=== PATIENT | female | born 1960 | race Caucasian/White ===

== ENCOUNTER 2018-09-07 19:55 | Inpatient (IN) | payer SELFPAY ==
[2018-09-07 20:16] LABS: #Basophils 0.1 thou/uL (0.0-0.2); #Eosinphils 0.2 thou/uL (0.0-0.7); #Lymphocytes 3.1 thou/uL (1.20-3.40); #Monocytes 0.9 thou/uL (0.11-0.59); #Neutrophils 8.1 thou/uL (1.40-6.50); %Basophils 0.8 % (0.0-1.0); %Eosinophils 1.3 % (0.0-10.0); %Monocytes 6.9 % (0.0-10.0); %Neutrophils 66.1 % (42.0-75.0); Hemoglobin 14.8 g/dL (12.0-16.0); Mean Corpuscular HGB CONC 33.1 g/dL (32.0-36.0); Mean Corpuscular Hemoglobin 30.1 pg (27.0-31.0); Mean Corpuscular Volume 91.1 fL (78.0-98.0); Mean Platelet Volume 8.1 fL (7.4-10.4); Platelet Count 300 thou/uL (130-400); RBC Distribution Width 11.5 % (11.5-14.5); Red Blood Cell (RBC) Count 4.91 mill/uL (4.20-5.40); White Blood Cell (WBC) Count 12.3 thou/uL (4.8-10.8)
[2018-09-07] MEDS ORDERED: Nitroglycerin 0.4 MG TAB (25 Tab Bottle) PO PRN (20:22)
[2018-09-07 20:23] LABS: Prothrombin Time 13.5 SEC (12.0-14.7)
[2018-09-07 20:24] LABS: PTT 55.1 SEC (22.9-36.1)
[2018-09-07] MEDS ORDERED: Communication Order-Pharmacy FS SCH (20:30)
[2018-09-07] MEDS ORDERED: Nitroglycerin 50 MG/250 ML BOT 250 ML IVPB SCH (20:30)
[2018-09-07] MEDS ORDERED: Heparin 25,000 units/D5W 500 ML IVPB SCH (20:30)
[2018-09-07] MEDS ORDERED: predniSONE 20 MG TAB ONE (20:37)
[2018-09-07] MEDS ORDERED: Famotidine 20 MG TAB ONE (20:37)
[2018-09-07] MEDS ORDERED: diphenhydrAMINE 50 MG CAP ONE (20:37)
[2018-09-07 20:44] LABS: ALT (SGPT) 8 U/L (8-55); AST (SGOT) 17 U/L (5-34); Albumin 3.1 g/dL (3.5-5.0); Alkaline Phosphatase 128 U/L (40-150); Anion Gap 16 mmol/L (10-20); BUN (Urea Nitrogen) 15 mg/dL (9.8-20.1); Bilirubin, Total 0.3 mg/dL (0.2-1.2); CK (CPK) 129 U/L (29-168); Calc. Creatinine Clearance 0 mL/min (70-130); Calcium 9.8 mg/dL (7.8-10.44); Carbon Dioxide 21 mmol/L (22-29); Chloride 100 mmol/L (98-107); Estimated GFR-MDRD 48; Globulin 3.4 g/dL (2.4-3.5); Glucose 467 mg/dL (70-105); Lipase 123 U/L (8-78); Potassium 4.5 mmol/L (3.5-5.1); Protein, Total 6.5 g/dL (6.0-8.3); Sodium 132 mmol/L (136-145)
[2018-09-07] MEDS ORDERED: Fentanyl 100 MCG/2 ML VIAL ONE (21:07)
[2018-09-07] MEDS ORDERED: Amiodarone 150 MG, Admixture Fee 1 EACH in Dextrose 5% in Water 100 ML IVPB SCH (21:45)
[2018-09-07 21:48] LABS: Hemoglobin 14.2 g/dL (12.0-16.0); Platelet Count 282 thou/uL (130-400)
[2018-09-07] MEDS ORDERED: Ondansetron ODT 4 MG TAB SL PRN (22:09)
[2018-09-07] MEDS ORDERED: Ondansetron PF 4 MG/2 ML Vial IVP PRN (22:09)
[2018-09-07 22:36] LABS: Troponin I 9.857 ng/mL (< 0.028)
[2018-09-07] MEDS ORDERED: Dextrose 50% Abboject 50 ML SYRINGE SLOW IVP PRN (22:46)
[2018-09-07] MEDS ORDERED: Dextrose 5% in Water 1,000 ML IV PRN (22:46)
[2018-09-07] MEDS: Sodium Chloride 0.9% 1,000 ML IV SCH (23:40)
[2018-09-07] MEDS: Heparin 10,000 UNITS/ 10 ML VIAL SLOW IVP SCH (23:42)
[2018-09-08] MEDS ORDERED: Amiodarone 150 MG, Admixture Fee 1 EACH in Dextrose 5% in Water 100 ML IVPB SCH (00:30)
[2018-09-08] MEDS: Amiodarone 450 MG in Dextrose 5% in Water 250 ML IVPB SCH (00:45)
[2018-09-08] MEDS: HumaLOG 300 UNITS/3 ML VIAL SC PRN ×2 (02:19→06:40)
--- NOTE | 2018-09-08 02:38 | CON ---
DATE OF CONSULTATION: 09/07/2018 HISTORY OF PRESENT ILLNESS: Azalea George is a 58-year-old white female, who six years ago, had myocardial infarction and had one stent placed in an artery at [facility]. She states she has done well since then until tonight at approximately 6:30 p.m., she began to have substernal chest pressure associated with nausea and diaphoresis. She went to the hospital in [place] and had changes consistent with an old anteroseptal infarct, but did have [address]-segment elevation in V3 and lead III. I discussed with the physician about the delayed transportation time and TNKase was given. Also at that time, it was unknown to me that she had an iodine allergy and it was good that she got the TNKase because she has what sounds like significant iodine allergy. At the present time, she is totally pain free. She is on intravenous heparin and intravenous nitroglycerin. She admits to not taking any medications except baby aspirin per day and has run out of insurance, so is not taking any medications for her diabetes. However, she continues to smoke. PAST MEDICAL HISTORY: Diabetes. She denies any history of hypercholesterolemia or hypertension. MEDICATIONS: Aspirin 81 daily. ALLERGIES: IODINE CAUSED LARYNGOSPASM AND GENERALIZED BODY SWELLING. SHE IS FAIRLY CERTAIN THAT SHE WAS PREMEDICATED FOR IODINE ALLERGY PRIOR TO HER CARDIAC CATHETERIZATION. PAST SURGICAL HISTORY: Removal of cyst from her groin. SOCIAL HISTORY: She continues to smoke a little under one pack per day. She does not drink. FAMILY HISTORY: Mother had myocardial infarction. REVIEW OF SYSTEMS: A 12-point review of systems is unremarkable. PHYSICAL EXAMINATION: VITAL SIGNS: Blood pressure 130/70, pulse of 80. HEENT: PERRL. NECK: Supple. CHEST: Clear. CARDIAC: S1 and S2 are normal without any S3, S4, or murmurs. Carotid upstrokes are normal without bruits. ABDOMEN: Normal bowel sounds. The abdomen is obese. EXTREMITIES: Reveal no clubbing, cyanosis, or edema. NEUROLOGIC: Grossly intact. SKIN: Warm and dry. LABORATORY DATA: EKG in [place] revealed atrial fibrillation with Q-waves, V1 through V3 with a slight 1-mm of ST-elevation in V3 and lead III. EKG here looks more like atrial flutter with the Q-waves, V1 through V3. The ST segments appear to have returned to baseline and she is pain free. Hemoglobin 14.8, hematocrit 44.7, white count 12,300, platelets 300. Sodium 133, potassium 4.7, chloride 99, carbon dioxide 22, BUN 13, creatinine 1.08. Troponin I of 3.830. BNP 460.5. IMPRESSION: 1. Anteroseptal ST elevation myocardial Infarction on top of what appears to be an old anteroseptal infarction with Q-waves in those leads. She received TNKase and at the present time is pain free. 2. Atrial fibrillation and atrial flutter. 3. Significant iodine allergy. 4. Diabetes. 5. Noncompliance with medications. 6. Smoker and positive family history. RECOMMENDATIONS: Situation discussed with the patient. With her severe iodine allergy and the fact that her chest discomfort has resolved, I feel best to premedicate her and take her to the laborer tin can tomorrow. Risks of catheterization were discussed including , myocardial infarction, dye reaction, vascular injury, CVA, transfusion, limb loss, renal loss, etc. Also risks of intervention with PTCA and stent placement were discussed including , myocardial infarction, emergent CABG, restenosis,stent thrombosis, vessel perforation, etc. With her noncompliance, I would only place a bare-metal stent. She also will be started on intravenous amiodarone for her atrial arrhythmias. Job ID: [id number] [facility]
[2018-09-08 02:41] LABS: Troponin I 16.392 ng/mL (< 0.028)
[2018-09-08] MEDS: Sodium Chloride 0.9% 1,000 ML IV SCH (06:21)
[2018-09-08] MEDS: diphenhydrAMINE 50 MG CAP PO SCH ×2 (06:22→12:29)
[2018-09-08] MEDS: predniSONE 20 MG TAB PO SCH ×2 (06:22→12:29)
--- NOTE | 2018-09-08 07:08 | CON ---
DATE OF CONSULTATION: PRIMARY CARE PHYSICIAN: Dr. Pennington. CODE STATUS: Full code. TIME OF EVALUATION: 10:15 p.m. CHIEF COMPLAINT: Chest pain. HISTORY OF PRESENT ILLNESS: This is a 58-year-old female patient with past medical history of coronary artery disease, diabetes, and hypertension, came to the hospital after having chest pain that was on and off all day long and got worse around 6 p.m. The patient reported that these symptoms have been present for the past 2 to 3 weeks. The pain was radiating to her jaw. She reported that she had a previous acute WI and that she knew that was a similar pain; however, this time it did not present with sweating and diaphoresis that she has had in the previous WI. REVIEW OF SYSTEMS: CONSTITUTIONAL: No fever, chills, or generalized weakness. RESPIRATORY: No cough, sputum production, or shortness of breath. CARDIOVASCULAR: Chest pain. No palpitation. GASTROINTESTINAL: No nausea. No vomiting, diarrhea, or abdominal pain. SANDBLAST OPERATOR: No dizziness, headache, or feeling lightheaded. GENITOURINARY: No burning on urination. EXTREMITIES: No leg swelling. All other systems were reviewed and negative except for the findings mentioned above. PAST MEDICAL HISTORY: As mentioned in the HPI. PAST SURGICAL HISTORY: The patient had a cardiac stent and cyst removed from groin. SOCIAL HISTORY: The patient smokes cigarettes on a daily basis. No alcohol. No drugs. FAMILY HISTORY: The patient has a history of coronary artery disease and hypertension in the family. ALLERGIES: KNOWN ALLERGIES TO IODINE. REPORTED MEDICATIONS: Aspirin. PHYSICAL EXAMINATION: VITAL SIGNS: On presentation, blood pressure 133/66, heart rate 85, respiratory rate was 22, temperature 97.3, pain 0/10, and oxygen saturation was 95% on room air. GENERAL APPEARANCE: The patient is alert, oriented, not in acute distress. HEENT: Eyes, normal conjunctivae. Moist oral mucosae. Anicteric. NECK: No JVD. RESPIRATORY: Bilateral air entry. No rales. No wheezes. Symmetric expansion. CARDIOVASCULAR: Normal rate, regular rhythm. No murmurs, no gallops. No edema. ABDOMEN: Soft. Normal bowel sounds. MUSCULOSKELETAL: Baseline range of motion and strength. No tenderness. SKIN: Warm, intact. No pallor. No rash. No redness. Peripheral pulses are present. Capillary refill seems to be intact. NEURO: No evidence of any new focal weakness. Baseline speech. Cranial nerves seem to be intact. PSYCH: The patient is in good mood. No anxiety. Optimal judgment. DIAGNOSTIC STUDIES: CARDIOVASCULAR STUDIES: EKG was reviewed. The patient has atrial flutter with variable AV block, ventricular rate 82, QRS 82, and QT corrected 387. LABORATORY RESULTS: Reviewed. The patient has a white count 12.3, hemoglobin 14.2, MCV 91, and platelet count 282. Coagulation; PT 13.5, INR 1.0, PTT 31.6, . Sodium was 132, potassium 4.5, carbon dioxide 21, anion gap 16, BUN 15, creatinine 1.16, GFR 48, glucose 167, calcium 9.8, total bilirubin 0.3, AST 17, ALT 8, and alkaline phosphatase 128. Troponin initially was 9.8, the second one 16.3. Beta-natriuretic peptide was 614. Serum total protein 6.5, albumin 3.1, globulin 3.4, albumin-globulin ratio 0.9, triglyceride 125, cholesterol 224, LDL cholesterol 143, HDL 56, and lipase 123. IMAGING STUDIES: Chest x-ray was done. Cardiomegaly and suggestive of mild congestive changes. CT dissection protocol was done. The patient has no evidence of aortic aneurysm or coronary artery calcification. A 2.6 cm left thyroid mass. Nonobstructing right renal calculus. ASSESSMENT AND PLAN: The patient will be placed in the ICU for the following medical problems: 1. ST-elevation myocardial infarction. Dr. Mancia is seeing the patient and has admitted the patient to his service. He is taking care of these problems. The patient received tPA and symptoms have resolved. 2. Atrial fibrillation/flutter, rate is controlled, Dr. Mancia is following this patient. We will follow recommendations. 3. Uncontrolled diabetes. We will place the patient on sliding scale. We will adjust treatment as needed. Reconcile home medications. 4. Controlled hypertension, reconcile home medications, adjust as needed. 5. Deep venous thrombosis prophylaxis. Thank you for allowing us to participate in your case and manage comorbidities. Feel free to call with any further questions. Job ID: [id number]
[2018-09-08] MEDS: Heparin 10,000 UNITS/ 10 ML VIAL SLOW IVP SCH (07:41)
[2018-09-08] MEDS ORDERED: Heparin 10,000 UNITS/1 ML VIAL ONE (08:52)
[2018-09-08] MEDS ORDERED: Famotidine 20 MG TAB PO SCH (09:00)
[2018-09-08] MEDS ORDERED: Fentanyl 100 MCG/2 ML VIAL ONE (09:51)
[2018-09-08] MEDS ORDERED: Midazolam HCl 2 mg/2 ml Vial ONE (09:51)
[2018-09-08] MEDS ORDERED: Nitroglycerin 50 MG/250 ML BOT 250 ML ONE (10:11)
[2018-09-08] MEDS ORDERED: Furosemide 40 MG/4 ML VIAL ONE (10:11)
[2018-09-08] MEDS ORDERED: Iopamidol 370 76% 100 ML VIAL ONE (10:18)
[2018-09-08] MEDS ORDERED: Iopamidol 370 76% 50 ML VIAL FS ONE (10:18)
[2018-09-08] MEDS ORDERED: Communication Order-Pharmacy FS ONE (10:23)
[2018-09-08] MEDS ORDERED: Albumin 5% 0 ML ONE (10:24)
[2018-09-08] MEDS ORDERED: Midazolam HCl 5 mg/5 ml Vial ONE (10:27)
[2018-09-08] MEDS ORDERED: Norepinephrine 8 MG/0.9% NS 250 ML ONE (10:27)
[2018-09-08] MEDS ORDERED: Dexmedetomidine 200 MCG/2 ML VIAL ONE (10:27)
[2018-09-08] MEDS ORDERED: Vecuronium 10 MG VIAL ONE ×2 (10:27→15:43)
[2018-09-08] MEDS ORDERED: Fentanyl 250 MCG/5 ML VIAL ONE (10:27)
[2018-09-08] MEDS ORDERED: Bupivacaine HCl 0.5%/Epinephrine 1:200,000/PF 30 ml Vial ONE (11:00)
[2018-09-08] MEDS ORDERED: Milrinone 10 MG/10 ML VIAL ONE (11:00)
[2018-09-08] MEDS ORDERED: Insulin Regular 300 UNITS/3 ML VIAL ONE ×2 (11:00→15:05)
[2018-09-08] MEDS ORDERED: Dexamethasone 4 mg/ml Vial ONE (11:00)
--- NOTE | 2018-09-08 11:14 | CON ---
DATE OF CONSULTATION: HISTORY: I was asked by Dr. Mancia to come see Ms. George in the microbiology laboratory manager. She presented with ST-elevation myocardial infarction outside institution. She received TNK. On her EKG, she has Q-waves anteriorly. She has history of an LAD stent in the [place]. Since that time, she has been on no medications. She continues to smoke over a pack cigarettes a day. She was brought to the microbiology laboratory manager this morning and found to have the LAD stent nearly occluded. There is akinesis of her anterior wall. She has Q-waves on her EKG anteriorly. The right coronary has a near occlusion, which is probably her culprit vessel, presenting her to the emergency department. She has also disease in her OM1 and OM2, which is significant. On ventriculogram, her anterior wall is akinetic. The ejection fraction is approximately 25%. PAST MEDICAL HISTORY: 1. Coronary artery disease. 2. Diabetes mellitus. CURRENT MEDICATIONS: At home, none. ALLERGIES: IODINE. PAST SURGICAL HISTORY: Removal of a groin cyst. SOCIAL HISTORY: She continues to smoke. She does not use any alcohol. She has a partner. REVIEW OF SYSTEMS: Not performed. PHYSICAL EXAMINATION: GENERAL: This is an obese woman, who I saw in the microbiology laboratory manager, resting comfortably on the microbiology laboratory manager table, coughing. VITAL SIGNS: Height is 5 feet 4 inches, weight is 231 pounds, BSA is 2.18. HEENT: Sclera nonicteric LUNGS: Decreased breath sounds bilaterally with audible wheezes HEART: RRR without murmur ABDOMEN:Obese, soft, nontender, no masses EXTREMITIES: No edema. Nails are gnarly VASCULAR: Palpable femoral, DP bilaterally ASSESSMENT AND PLAN: This is a 58-year-old female with history of coronary artery disease and poor ventricular function. Her anterior wall may be completely at this point. We will evaluate in the operating room and if it is, would defer bypass to her left anterior descending at that point. If she has live muscle, we would bypass her left anterior descending. Otherwise, she has two OM targets and a distal right coronary target. I have discussed the need for urgent bypass with the patient. She is agreeable to proceed. Job ID: [id number] [facility]
[2018-09-08] MEDS ORDERED: Heparin 10,000 UNITS/1 ML VIAL 30,000 UNITS in Sodium Chloride 0.9% 1,000 ML FS SCH (12:15)
[2018-09-08] MEDS ORDERED: Acetaminophen 325 MG TAB PO PRN (15:34)
[2018-09-08] MEDS ORDERED: Mag-Al 1200 mg/1200 mg/30 ML UDCUP PO PRN (15:34)
[2018-09-08] MEDS ORDERED: CEFAZOLIN/Water 2 GM/20 ML SYRINGE SLOW IVP SCH (15:34)
[2018-09-08] MEDS ORDERED: Ondansetron PF 4 MG/2 ML Vial IVP PRN (15:34)
[2018-09-08] MEDS ORDERED: Guaifenesin DM 100-10/5 ML UDCUP PO PRN (15:34)
[2018-09-08] MEDS ORDERED: Magnesium 2 GM/50 ML 2 GM in Premix Bag 1 BAG IVPB SCH (15:34)
[2018-09-08] MEDS ORDERED: Post-Op Insulin Drip Protocol IVPB ONE (15:34)
[2018-09-08] MEDS ORDERED: Hetastarch 6% 500 ML 500 ML IVPB PRN (15:34)
[2018-09-08] MEDS ORDERED: Promethazine HCl 25 MG/ML VIAL IM PRN (15:34)
[2018-09-08] MEDS ORDERED: Fentanyl 100 MCG/2 ML VIAL SLOW IVP PRN ×2 (15:34)
[2018-09-08] MEDS ORDERED: Nitroglycerin 50 MG/250 ML BOT 250 ML IVPB PRN (15:34)
[2018-09-08] MEDS ORDERED: hydrALAZINE 20 MG/ML VIAL SLOW IVP PRN (15:34)
[2018-09-08] MEDS ORDERED: Bisacodyl 5 MG TAB PO PRN (15:34)
[2018-09-08] MEDS ORDERED: Bisacodyl 10 MG SUPP PR PRN (15:34)
[2018-09-08] MEDS ORDERED: Norepinephrine 8 MG/0.9% NS 250 ML IVPB PRN (15:34)
[2018-09-08] MEDS ORDERED: HYDROcodone/Acetaminophen 5/325 mg Tablet PO PRN ×2 (15:34)
[2018-09-08] MEDS ORDERED: Lidocaine 2% PF 100 mg/5 ml Syringe ONE (15:43)
[2018-09-08] MEDS ORDERED: Sodium Bicarb 50 MEQ/50 ML VIAL ONE (15:43)
[2018-09-08] MEDS ORDERED: Potassium Chloride 60 MEQ/30 ML VIAL ONE (15:43)
[2018-09-08] MEDS ORDERED: Albumin 25% 25 GM/100 ML BOT ONE (15:43)
[2018-09-08] MEDS ORDERED: Papaverine 60 MG/2 ML VIAL ONE (15:43)
[2018-09-08] MEDS ORDERED: Cardioplegic Soln 1,000 ML BAG ONE (15:43)
[2018-09-08] MEDS ORDERED: PROPOFOL 200 MG/20 ML VIAL ONE (15:43)
[2018-09-08] MEDS ORDERED: Heparin 5,000 UNITS/ML VIAL ONE (15:43)
[2018-09-08] MEDS ORDERED: Protamine Sulfate 250 MG/25 ML VIAL ONE (15:43)
[2018-09-08] MEDS ORDERED: Magnesium 5 GM/10 ML VIAL ONE (15:43)
[2018-09-08] MEDS ORDERED: Heparin 30,000 units/30 ml VIAL ONE (15:43)
[2018-09-08] MEDS ORDERED: Thrombin 5000 UNITS/5 ML VIAL ONE (15:43)
[2018-09-08] MEDS ORDERED: Mannitol 12.5 GM/50 ML ONE (15:43)
[2018-09-08] MEDS ORDERED: Calcium Chloride 1 GM/10 ML Abboject SYRINGE ONE (15:43)
[2018-09-08] MEDS ORDERED: Aminocaproic Acid 5 GM/20 ML VIAL ONE (15:43)
[2018-09-08] MEDS ORDERED: Morphine 2 MG/ML SYRINGE SLOW IVP PRN ×2 (15:45→16:35)
[2018-09-08] MEDS ORDERED: Dextrose 50% Abboject 50 ML SYRINGE SLOW IVP PRN (15:48)
[2018-09-08] MEDS ORDERED: Dextrose 5% in Water 1,000 ML IV PRN (15:48)
[2018-09-08 15:53] LABS: Actual Bicarbonate (HCO3a) 20.3 mEq/L (22-28); Base Excess (BEa) -6.4 mEq/L (-2.0 to +3.0); CO2 Tension 44.7 mmHg (35.0-45.0); Calcium, Ionized 1.32 mmol/L (1.12-1.30); Carboxyhemoglobin (COHb) 1.3 gm% (0.0-3.0); Hemoglobin (Hb) 13.2 g/dL (12.0-16.0); O2 Tension (PaO2) 63.6 mmHg (> 80.0); Potassium - ABG Lab 3.26 mmol/L (3.70-5.30); pH, Arterial 7.28 (7.35-7.45)
[2018-09-08 15:55] LABS: ALV-art Gradient 165.725 (0-20); Puncture Site LINE
[2018-09-08 16:02] LABS: #Eosinphils 0.1 thou/uL (0.0-0.7); #Lymphocytes 2.2 thou/uL (1.20-3.40); #Monocytes 0.6 thou/uL (0.11-0.59); #Neutrophils 16.9 thou/uL (1.40-6.50); %Basophils 0.1 % (0.0-1.0); %Eosinophils 0.6 % (0.0-10.0); %Lymphocytes 11.3 % (21.0-51.0); %Monocytes 2.8 % (0.0-10.0); %Neutrophils 85.2 % (42.0-75.0); Mean Corpuscular HGB CONC 32.4 g/dL (32.0-36.0); Mean Corpuscular Hemoglobin 29.6 pg (27.0-31.0); Mean Corpuscular Volume 91.3 fL (78.0-98.0); Mean Platelet Volume 7.5 fL (7.4-10.4); Platelet Count 228 thou/uL (130-400); RBC Distribution Width 11.4 % (11.5-14.5); White Blood Cell (WBC) Count 19.8 thou/uL (4.8-10.8)
--- NOTE | 2018-09-08 16:08 | RAD ---
CHEST ONE VIEW: HISTORY: Post open heart surgery. COMPARISON: Radiograph from the prior day. FINDINGS: The patient is intubated with the endotracheal tube tip just below the clavicles. Mediastinal drains are present. Subclavian central venous catheter tip projects over the right atrium. Small effusion s. Mild edema. No pneumothorax. IMPRESSION: Expected postoperative findings. POS: TPC
[2018-09-08 16:11] LABS: INR-International Normal Ratio 1.2; PTT 32.2 SEC (22.9-36.1); Prothrombin Time 14.8 SEC (12.0-14.7)
[2018-09-08] MEDS: HUMULIN R 100 UNITS in Sodium Chloride 0.9% 100 ML IVPB SCH (16:13)
[2018-09-08] MEDS: CEFAZOLIN 2 GM in Premix Bag 1 BAG IVPB SCH (16:16)
[2018-09-08 16:19] LABS: Actual Bicarbonate (HCO3a) 22.5 mEq/L (22-28); Base Excess (BEa) -6.5 mEq/L (-2.0 to +3.0); Calcium, Ionized 1.32 mmol/L (1.12-1.30); Carboxyhemoglobin (COHb) 1.5 gm% (0.0-3.0); Potassium - ABG Lab 3.19 mmol/L (3.70-5.30)
[2018-09-08] MEDS: D5 1/2 NS w/20 mEq KCL 1,000 ML IV SCH (16:20)
[2018-09-08 16:22] LABS: pH, Arterial 7.19 (7.35-7.45)
[2018-09-08 16:23] LABS: Anion Gap 11 mmol/L (10-20); BUN (Urea Nitrogen) 19 mg/dL (9.8-20.1); Calc. Creatinine Clearance 110 mL/min (70-130); Calcium 9.1 mg/dL (7.8-10.44); Carbon Dioxide 20 mmol/L (22-29); Chloride 110 mmol/L (98-107); Estimated GFR-MDRD 64; Glucose 200 mg/dL (70-105); Potassium 3.2 mmol/L (3.5-5.1); Sodium 138 mmol/L (136-145)
[2018-09-08 16:23] LABS: CO2 Tension 60.2 mmHg (35.0-45.0); O2 Tension (PaO2) 46.2 mmHg (> 80.0); Puncture Site LINE
[2018-09-08] MEDS ORDERED: Lorazepam 2 MG/ML VIAL SLOW IVP PRN (16:35)
[2018-09-08] MEDS ORDERED: DISCONTINUE PREVIOUS NARCOTIC PAIN MEDICATIONS AND BENZODIAZEPINES FS SCH (16:35)
[2018-09-08] MEDS ORDERED: Fentanyl BOLUS 250 ML IVPB PRN (16:35)
[2018-09-08] MEDS ORDERED: fentaNYL Citrate/PF 2,000 MCG in Sodium Chloride 0.9% 60 ML IV SCH (16:35)
[2018-09-08] MEDS ORDERED: Propofol BOLUS 1,000 MG/100 ML VIAL IV PRN (16:35)
--- NOTE | 2018-09-08 16:43 | OP ---
DATE OF PROCEDURE: 09/08/2018 PREOPERATIVE DIAGNOSES: 1. Coronary artery disease/status post ST-elevation myocardial infarction, previous left anterior descending stenting. 2. Insulin-dependent diabetes mellitus - uncontrolled. 3. Morbid obesity. PROCEDURES PERFORMED: 1. Coronary artery bypass grafting x3 on emergent basis - 1. Reverse saphenous vein to 1.25 mm heavily diseased diagonal - this is not a redo target. 2. Reverse saphenous vein to 1.25 mm heavily diseased OM2. This is not a redo target. 3. Reverse saphenous vein to 1.25 mm heavily diseased PDA - this is not a redo target. Note, the anterior wall of the heart was thinned and scar. There was no indication for LAD bypass. Her OM1 was bypassable. 2, Ligation of left atrial appendage CO-SURGEON: Yakov Hilario MD. ANESTHESIA: General endotracheal - Dr. Oneal Muñoz. PUMP TIME: 63 minutes. CROSS-CLAMP TIME: 34 minutes. LOW CORE TEMPERATURE: 34 degrees Celsius. PROTECTIVE SERVICES CASE WORKER: Cornelius Stark. DRAINS: 24-Barbadian chest tubes x2. DRIPS: None. TRANSFUSIONS: None. DESCRIPTION OF PROCEDURE: After consent was obtained, the patient was brought to the operating room and placed in supine position on the operating room table. Appropriate lines and monitors were placed and general endotracheal anesthesia was induced. Chest and legs were prepped and draped in usual sterile fashion. Greater saphenous vein was harvested from the left lower extremity utilizing an endoscopic technique. The wounds were closed in layers. Median sternotomy was performed. Pericardium was entered. The LAD territory was inspected and was thinned and scarred. Pericardial stay sutures were placed. The patient was systemically heparinized. Aortic and atrial cannulation was performed. After adequate heparinization, retrograde prime was performed and the patient was placed on cardiopulmonary bypass. Distal targets were marked. Aortic cross-clamp was applied, and antegrade sanguineous cardioplegic arrest was obtained. 1 L of antegrade cold cardioplegia was given. [place] cardioplegia was given. Topical cold solution was used. The base of the left atrial appendage was ligated in two layers with matressed 4 -0 prolene Reverse saphenous vein was anastomosed to PDA in an end-to-side fashion with running 7-0 Prolene suture. Anastomosis was tested, it was hemostatic. Reverse saphenous vein was anastomosed to the OM2 in an end-to-side fashion with running 7-0 Prolene suture. Anastomosis was tested, it was hemostatic. Reverse saphenous vein was anastomosed to diagonal in an end-to-side fashion with running 7-0 Prolene suture. Anastomosis was tested, it was hemostatic. Cross- clamp was removed and partial occluding clamp placed. Saphenous vein to the OM and PDA were anastomosed to the aortic root. Saphenous vein to diagonal was anastomosed to the sidewall of the OM graft. Partial occluding clamp was removed and graft deaired. Anastomoses were inspected for hemostasis, which were good. The patient was warmed and weaned from cardiopulmonary bypass. After resumption of sinus rhythm, good hemodynamics, and temperature greater than 36.5, bypass was discontinued. Transfusions were given. Decannulation was performed and a pursestring suture secured. Protamine was administered. After adequate hemostasis had been obtained in mediastinum, 24-Barbadian chest tubes were placed in the mediastinum. Vancomycin paste was placed on the sternal edges. Again, hemostasis was ensured. The sternum was closed with #7 wire, three in the manubrium and one in the distal sternum. Forceps ties were placed in the body of the sternum. Wires and ties were tightened after utilizing platelet rich plasma on the edge of sternum. Platelet poor plasma was placed in subcutaneous tissue and on top of the sternal closure. Wounds were then closed in layers and Dermabond applied to skin. The patient tolerated the procedure well , was transferred to the intensive care unit in stable but critical condition. Needle , sponge, and instrument counts were all reported as correct at the end of the procedure. Job ID: [id number] [facility]
[2018-09-08 16:53] LABS: ALV-art Gradient 592.475 (0-20); Actual Bicarbonate (HCO3a) 20.5 mEq/L (22-28); Base Excess (BEa) -5.6 mEq/L (-2.0 to +3.0); CO2 Tension 42.5 mmHg (35.0-45.0); Calcium, Ionized 1.26 mmol/L (1.12-1.30); Carboxyhemoglobin (COHb) 1.2 gm% (0.0-3.0); Hemoglobin (Hb) 13.1 g/dL (12.0-16.0); O2 Tension (PaO2) 67.4 mmHg (> 80.0); Potassium - ABG Lab 3.32 mmol/L (3.70-5.30); Puncture Site LINE
[2018-09-08] MEDS: Ketorolac Tromethamine 30 MG/ML VIAL IVP SCH ×2 (17:07→23:54)
[2018-09-08] MEDS: Potassium Chloride 20 MEQ/100 ML PREMIX BAG IVPB PRN ×2 (17:14→23:54)
--- NOTE | 2018-09-08 18:24 | PDOC.PN ---
- Subjective Encounter Start Date: 09/08/18 Encounter Start Time: 18:22 Pt seen for followup re: diabetes mellitus. Intubated, unable to complete ROS. - Objective Resuscitation Status - Order Detail: 09/07/18 20:22 Resuscitation Status Routine Resuscitation Status: FULL: Full Resuscitation MAR Reviewed: Yes Vital Signs & Weight: Vital Signs (12 hours) Temp Pulse Resp Pulse Ox 09/08/18 17:59 20 09/08/18 16:36 20 95 09/08/18 16:02 60 09/08/18 16:00 22 H 09/08/18 09:00 97.7 F 09/08/18 07:24 97.9 F 98 09/08/18 07:00 97.9 F Weight Weight 231 lb 14.821 oz Most Recent Monitor Data Heart Rate from ECG 62 NIBP 109/60 NIBP BP-Mean 76 Respiration from ECG 20 SpO2 100 I&O: 09/07/18 09/08/18 09/09/18 06:59 06:59 06:59 Intake Total 790.1 793.4 Output Total 700 180 Balance 90.1 613.4 Result Diagrams: 09/08/18 15:54 09/08/18 15:54 Additional Labs: Accuchecks 09/08/18 09/08/18 09/08/18 17:59 16:51 15:51 POC Glucose 121 H 165 H 207 H 09/08/18 09/08/18 09/08/18 15:04 14:45 14:04 POC Glucose 273 H 272 H 323 H 09/08/18 09/08/18 09/08/18 13:44 13:11 12:02 POC Glucose 318 H 363 H 426 H 09/08/18 09/08/18 09/08/18 06:36 02:53 02:15 POC Glucose 421 H 438 H 434 H EKG Reviewed by me: Yes (Tele: NSR) Phys Exam - Physical Examination Obese HEENT: moist MMs ETT+ Respiratory: clear to auscultation bilateral Cardiovascular: RRR Gastrointestinal: positive bowel sounds No spontaneous limb movements Deviation from normal: Unable to assess Dx/Plan (1) DM2 (diabetes mellitus, type 2) Status: Chronic Comment: on insulin drip (2) HTN (hypertension) Code(s): I10 - ESSENTIAL (PRIMARY) HYPERTENSION Status: Chronic Comment: pt is on levophed drip due to hypotension (3) Thyroid mass Code(s): E07.9 - DISORDER OF THYROID, UNSPECIFIED Status: Acute Comment: check thyroid profile, will likely need workup as outpatient when stable (4) STEMI (ST elevation myocardial infarction) Status: Acute Comment: s/p CABG today - Plan * . Review of Systems - Medications/Allergies Allergies/Adverse Reactions: Allergies Allergy/AdvReac Type Severity Reaction Status Date / Time iodine Allergy Verified 09/08/18 01:59 Medications: Current Medications Acetaminophen (Tylenol) 650 mg PO Q6H PRN PRN Reason: Headache/Fever Or Mild Pain Al Hydroxide/Mg Hydroxide (Maalox) 30 ml PO Q4H PRN PRN Reason: Indigestion Albumin Human (Albumin 5%) 12.5 gm IVPB Q6H PRN PRN Reason: To Maintain SBP> 90 mmHG Stop: 09/09/18 15:35 Albumin Human (Albumin 5%) 25 gm IVPB Q6H PRN PRN Reason: To Maintain SBP > 90 mmHG Stop: 09/09/18 15:35 Albuterol/Ipratropium (Duoneb) 3 ml NEB [id number] RICKY Albuterol/Ipratropium (Duoneb) 3 ml NEB [id number] PRN PRN Reason: SHORTNESS OF BREATH Aspirin (Aspirin) 325 mg PO DAILY RICKY Bisacodyl (Dulcolax) 10 mg PO Q12H PRN PRN Reason: Constipation Bisacodyl (Dulcolax) 10 mg NJ Q12H PRN PRN Reason: Constipation Budesonide (Pulmicort Neb Solution) 0.5 mg INH BID-RT RICKY Dextrose/Water (Dextrose 50%) 25 gm SLOW IVP PRN PRN PRN Reason: PER HYPOGLYCEMIC PROTOCOL Famotidine (Pepcid) 20 mg SLOW IVP Q12HR RICKY Glucagon (Glucagon) 1 mg SC PRN PRN PRN Reason: PER HYPOGLYCEMIC PROTOCOL Guaifenesin/Dextromethorphan (Robitussin Dm) 15 ml PO Q4H PRN PRN Reason: Cough Hydralazine HCl (Apresoline) 10 mg SLOW IVP Q6H PRN PRN Reason: To Maintain SBP< 140mmHG Amiodarone HCl 450 mg/ (Dextrose/Water) 259 mls @ 0 mls/hr IVPB INF RICKY; Protocol Last Admin: 09/08/18 00:45 Dose: 259 mls Potassium Chloride/Dextrose/Sod Cl (D5 1/2 Ns W/20 Meq Kcl) 1,000 mls @ 40 mls/ hr IV .Q24H [facility] Last Admin: 09/08/18 16:20 Dose: 1,000 mls Hetastarch/Sodium Chloride (Hespan) 500 mls @ 0 mls/hr IVPB PRN PRN PRN Reason: To Maintain SBP > 90mmHg Stop: 09/09/18 15:21 Norepinephrine Bitartrate (Levophed) 250 mls @ 0 mls/hr IVPB PRN PRN; Protocol PRN Reason: To maintain SBP > 90 mmHG Magnesium Sulfate 2 gm/ Device 50 mls @ 50 mls/hr IVPB QAM [facility] Stop: 09/10/18 09:59 Nitroglycerin/Dextrose (Nitroglycerin 50 Mg/250 Ml Bot) 250 mls @ 0 mls/hr IVPB PRN PRN; Protocol PRN Reason: To Maintain SBP< 140mmHG Cefazolin Sodium/Dextrose 2 gm (/ Device) 50 mls @ 100 mls/hr IVPB 0800,1600, 2359 [facility] Stop: 09/09/18 08:29 Last Admin: 09/08/18 16:16 Dose: 50 mls Insulin Human Regular 100 (units/ Sodium Chloride) 101 mls @ 0 mls/hr IVPB INF RICKY; Protocol Last Admin: 09/08/18 16:13 Dose: 101 mls Dextrose/Water (D5w) 1,000 mls @ 0 mls/hr IV INF PRN PRN Reason: PRN HYPOGLYCEMIC PROTOCOL Fentanyl Citrate 2,000 mcg/ (Sodium Chloride) 100 mls @ 0 mls/hr IV INF RICKY; Protocol Stop: 10/08/18 16:35 Last Admin: 09/08/18 17:34 Dose: 100 mls Fentanyl Citrate (Fentanyl Bolus) 250 mls @ 0 mls/hr IVPB PRN PRN PRN Reason: Breakthrough pain/agitation Stop: 10/08/18 16:35 Insulin Glargine (Lantus) 0 units SC ONE PRN PRN Reason: PER OPEN HEART ORDERS Stop: 09/15/18 15:49 Insulin Human Regular (Humulin R) 0 units SC Q4H PRN; Protocol PRN Reason: POST OP SLIDING SCALE Ketorolac Tromethamine (Toradol) 30 mg IVP Q6HR RICKY Stop: 09/11/18 18:01 Last Admin: 09/08/18 17:07 Dose: 30 mg Lorazepam (Ativan) 2 mg SLOW IVP Q1H PRN PRN Reason: Breakthrough agitation Stop: 10/08/18 16:35 Morphine Sulfate (Morphine) 2 mg SLOW IVP Q1H PRN PRN Reason: BREAKTHROUGH PAIN/Agitation Stop: 10/08/18 16:35 Discontinue Previous Narcotic Pain Medications And Benzodiazepines 1 each FS .ONE RICKY Stop: 10/08/18 16:35 Ondansetron HCl (Zofran) 4 mg IVP Q6H PRN PRN Reason: Nausea/Vomiting Potassium Chloride (Kcl) 20 meq IVPB PRN PRN PRN Reason: K level </= 4.0 Last Admin: 09/08/18 17:14 Dose: 20 meq Promethazine HCl (Phenergan) 6.25 mg IM Q4H PRN PRN Reason: Nausea/Vomiting Propofol (Diprivan) 1,000 mg IV INF PRN; Protocol PRN Reason: TO ACHIEVE GOAL RASS Stop: 10/08/18 16:35 Propofol (Diprivan Bolus) 20 mg IV Q5MIN PRN PRN Reason: BREAKTHROUGH AGITATION Stop: 10/08/18 16:35
[2018-09-08] MEDS: Budesonide 0.5 MG/2 ML NEB INH SCH (19:07)
[2018-09-08] MEDS: Famotidine/PF 20 mg/2ml Vial SLOW IVP SCH (20:01)
[2018-09-08] MEDS: Propofol 1,000 MG/100 ML VIAL IV PRN (21:18)
[2018-09-08 21:46] LABS: Hemoglobin 12.7 g/dL (12.0-16.0)
[2018-09-08 22:01] LABS: Potassium 3.8 mmol/L (3.5-5.1)
[2018-09-09] MEDS: CEFAZOLIN 2 GM in Premix Bag 1 BAG IVPB SCH ×2 (00:06→08:39)
--- NOTE | 2018-09-09 01:13 | CON ---
DATE OF CONSULTATION: HISTORY OF PRESENT ILLNESS: Ariel is a woman, who was admitted today and underwent cardiac catheterization. She has had a coronary stent placed in the past and has an anterior wall that does not move apparently. She had Q-waves on her initial EKG. She underwent cardiac coronary artery bypass grafting on the same day as her cardiac catheterization. I have seen her in the intensive care unit after surgery. PAST MEDICAL HISTORY: Remarkable for diabetes, on no medicine. Reportedly, she is a daily smoker. ALLERGIES: SHE REPORTS IODINE ALLERGY. SOCIAL HISTORY: She is not a daily drinker. FAMILY HISTORY: Positive for vascular disease. REVIEW OF SYSTEMS: A 12-point review of system on admission was unremarkable per the cardiac note. PHYSICAL EXAMINATION: VITAL SIGNS: Blood pressure is currently 109/60, heart rate 62, respiratory rate 20, and oximetry is 100%. HEENT: Pupils are equal. Sclerae are anicteric. NECK: Supple. No lymphadenopathy. LUNGS: Remarkable for faint wheezes bilaterally. HEART: Regular rhythm. S1 and S2 are normal. ABDOMEN: Soft and nontender. EXTREMITIES: Without clubbing, cyanosis, or edema. LABORATORY DATA: White count 19.8, hemoglobin 13.0, and platelets 228. Sodium 138, potassium 3.2, chloride 110, bicarb 20, BUN 19, creatinine 0.9, and glucose 200. A pH 7.3, pCO2 42, and pO2 67. Blood gas postop at 1615 hours pH 7.19, pCO2 60, and pO2 46. Ventilator has been adjusted. IMPRESSION: 1. Coronary artery disease with significant cardiomyopathy, left ventricular systolic function, status post coronary artery bypass grafting. 2. ? underlying obstructive lung disease. 3. Obesity. 4. Diabetes. 5. ? Medical noncompliance issues given that she is on no diabetes medication and no coronary or lipid medication prior to admission. 6. Tobacco use up until this admission. She will not be weaned per protocol, will be re-evaluated in the morning for weaning. Critical care time 30 minutes. Job ID: [id number] [facility]
[2018-09-09] MEDS: Amiodarone 450 MG in Dextrose 5% in Water 250 ML IVPB SCH (03:14)
[2018-09-09 04:44] LABS: #Lymphocytes 1.8 thou/uL (1.20-3.40); #Monocytes 1.1 thou/uL (0.11-0.59); %Basophils 0.1 % (0.0-1.0); %Eosinophils 0.1 % (0.0-10.0); %Lymphocytes 11.9 % (21.0-51.0); %Monocytes 7.2 % (0.0-10.0); %Neutrophils 80.7 % (42.0-75.0); Hemoglobin 11.9 g/dL (12.0-16.0); Mean Corpuscular HGB CONC 32.8 g/dL (32.0-36.0); Mean Corpuscular Hemoglobin 29.6 pg (27.0-31.0); Mean Corpuscular Volume 90.3 fL (78.0-98.0); Mean Platelet Volume 8.9 fL (7.4-10.4); Platelet Count 219 thou/uL (130-400); RBC Distribution Width 11.6 % (11.5-14.5); Red Blood Cell (RBC) Count 4.04 mill/uL (4.20-5.40); White Blood Cell (WBC) Count 14.9 thou/uL (4.8-10.8)
[2018-09-09 05:05] LABS: Anion Gap 16 mmol/L (10-20); BUN (Urea Nitrogen) 23 mg/dL (9.8-20.1); Calc. Creatinine Clearance 88 mL/min (70-130); Calcium 8.9 mg/dL (7.8-10.44); Carbon Dioxide 16 mmol/L (22-29); Chloride 109 mmol/L (98-107); Estimated GFR-MDRD 49; Glucose 175 mg/dL (70-105); Potassium 4.7 mmol/L (3.5-5.1); Sodium 136 mmol/L (136-145)
[2018-09-09 05:24] LABS: Free T4 (Free Thyroxine) 1.07 ng/dL (0.70-1.48); Thyroid Stimulating Hormone 1.124 uIU/mL (0.35-4.94)
[2018-09-09] MEDS: Ketorolac Tromethamine 30 MG/ML VIAL IVP SCH ×3 (05:24→18:53)
[2018-09-09] MEDS: Propofol 1,000 MG/100 ML VIAL IV PRN ×2 (05:25→14:54)
[2018-09-09] MEDS: Budesonide 0.5 MG/2 ML NEB INH SCH ×2 (07:27→18:52)
[2018-09-09 07:38] LABS: Actual Bicarbonate (HCO3a) 19.1 mEq/L (22-28); Base Excess (BEa) -3.9 mEq/L (-2.0 to +3.0); CO2 Tension 28.7 mmHg (35.0-45.0); Calcium, Ionized 1.23 mmol/L (1.12-1.30); Carboxyhemoglobin (COHb) 0.5 gm% (0.0-3.0); Hemoglobin (Hb) 11.9 g/dL (12.0-16.0); O2 Tension (PaO2) 109.1 mmHg (> 80.0); Potassium - ABG Lab 4.09 mmol/L (3.70-5.30); pH, Arterial 7.44 (7.35-7.45)
[2018-09-09 07:40] LABS: ALV-art Gradient 354.125 (0-20); Puncture Site LR
[2018-09-09] MEDS: HUMULIN R 100 UNITS in Sodium Chloride 0.9% 100 ML IVPB SCH (08:37)
[2018-09-09] MEDS: Aspirin 325 MG TAB PO SCH (08:40)
[2018-09-09] MEDS: Famotidine/PF 20 mg/2ml Vial SLOW IVP SCH ×2 (08:40→21:05)
[2018-09-09] MEDS: Magnesium 2 GM/50 ML 2 GM in Premix Bag 1 BAG IVPB SCH (08:40)
[2018-09-09] MEDS ORDERED: Furosemide 40 MG/4 ML VIAL SLOW IVP SCH (09:30)
--- NOTE | 2018-09-09 11:04 | RAD ---
PORTABLE AP CHEST: Date: 09/09/18 HISTORY: Post open heart surgery. COMPARISON: 09/08/18. FINDINGS: Endotracheal tube, right subclavian central venous catheter, and mediastinal drains remain in place a nd unchanged in position. A nasogastric tube is noted in place, which appears to course into the uppe r abdomen. Postsurgical changes related to median sternotomy are noted. Cardiac silhouette is magnified by patie nt rotation, but is at the upper limits of normal to borderline enlarged. There is suggestion of bila teral pleural effusions with associated bibasilar atelectasis. Pulmonary vasculature is at the upper limits of normal. No other interval change. IMPRESSION: 1. Small bilateral pleural effusions and associated atelectasis. 2. Mild pulmonary vascular congestion, although this does appear improved from prior exam. 3. Lines and tubes in place as described above. POS: KARIN
--- NOTE | 2018-09-09 11:59 | PDOC.CTH ---
Cardiology Progress Note - Subjective pt. seen and eval. by me. alert. Intubated. no acute events overnight. - Objective Vital Signs Pulse Resp BP Pulse Ox 09/09/18 10:27 71 125/70 09/09/18 10:00 20 09/09/18 08:00 20 100 09/09/18 07:27 70 105/55 L 09/09/18 06:00 20 09/09/18 04:00 20 09/09/18 02:00 20 09/09/18 00:00 20 Weight 249 lb 5.485 oz 09/08/18 09/09/18 09/10/18 06:59 06:59 06:59 Intake Total 790.1 2172.7 Output Total 700 710 120 Balance 90.1 1462.7 -120 - Physical Examination Neck: no JVD present Lungs: CTA Heart: RRR Abdomen: soft - Telemetry Telemetry Rhythm: nsr - Labs Result Diagrams: 09/09/18 04:12 09/09/18 04:12 Troponin/CKMB Troponin I 16.392 ng/mL (< 0.028) H* 09/08/18 02:04 - Assessment/Plan 1. s/p CABG. stable. 2. DM 3. Hx. tobacco abuse. meds reviewed. I agree with the present management.
[2018-09-09] MEDS ORDERED: Insulin Glargine 20 UNITS in Pre-Filled Syringe 1 EACH SC SCH (14:30)
--- NOTE | 2018-09-09 14:38 | PDOC.PN ---
- Subjective Encounter Start Date: 09/09/18 Encounter Start Time: 10:40 Pt seen for followup re:DM2. Intubated, nonverbal, unable to obtain ROS. - Objective Resuscitation Status - Order Detail: 09/07/18 20:22 Resuscitation Status Routine Resuscitation Status: FULL: Full Resuscitation MAR Reviewed: Yes Vital Signs & Weight: Vital Signs (12 hours) Pulse Resp BP Pulse Ox 09/09/18 13:08 75 113/64 09/09/18 12:00 15 09/09/18 10:27 71 125/70 09/09/18 10:00 20 09/09/18 08:00 20 100 09/09/18 07:27 70 105/55 L 09/09/18 06:00 20 09/09/18 04:00 20 Weight Admit Weight 231 lb 14.821 oz Weight 249 lb 5.485 oz Most Recent Monitor Data Heart Rate from ECG 77 NIBP 145/84 NIBP BP-Mean 104 Respiration from ECG 25 SpO2 100 I&O: 09/08/18 09/09/18 09/10/18 06:59 06:59 06:59 Intake Total 790.1 2172.7 Output Total 700 710 700 Balance 90.1 1462.7 -700 Result Diagrams: 09/09/18 04:12 09/09/18 04:12 Additional Labs: Accuchecks 09/09/18 09/09/18 09/09/18 08:56 08:04 03:32 POC Glucose 136 H 142 H 136 H 09/09/18 09/09/18 09/09/18 02:35 01:33 00:31 POC Glucose 125 H 85 111 H 09/08/18 09/08/18 09/08/18 23:35 22:39 21:27 POC Glucose 124 H 144 H 161 H 09/08/18 09/08/18 09/08/18 19:27 17:59 16:51 POC Glucose 93 121 H 165 H 09/08/18 09/08/18 09/08/18 15:51 15:04 14:45 POC Glucose 207 H 273 H 272 H labs reviewed by me EKG Reviewed by me: Yes (Tele; NSR) Phys Exam - Physical Examination Morbid obesity HEENT: moist MMs ETT Respiratory: clear to auscultation bilateral Cardiovascular: RRR Gastrointestinal: soft Neurological: moves all 4 limbs Deviation from normal: Unable to assess Dx/Plan (1) DM2 (diabetes mellitus, type 2) Status: Chronic Comment: controlled (2) HTN (hypertension) Code(s): I10 - ESSENTIAL (PRIMARY) HYPERTENSION Status: Chronic Comment: controlled, pt is off of levophed drip (3) Thyroid mass Code(s): E07.9 - DISORDER OF THYROID, UNSPECIFIED Status: Acute Comment: normal thyroid profile, will likely need workup when stable (4) STEMI (ST elevation myocardial infarction) Status: Acute Comment: s/p CABG yesterday - Plan * . Review of Systems - Medications/Allergies Allergies/Adverse Reactions: Allergies Allergy/AdvReac Type Severity Reaction Status Date / Time iodine Allergy Verified 09/08/18 01:59 Medications: Current Medications Acetaminophen (Tylenol) 650 mg PO Q6H PRN PRN Reason: Headache/Fever Or Mild Pain Al Hydroxide/Mg Hydroxide (Maalox) 30 ml PO Q4H PRN PRN Reason: Indigestion Albumin Human (Albumin 5%) 12.5 gm IVPB Q6H PRN PRN Reason: To Maintain SBP> 90 mmHG Stop: 09/09/18 15:35 Albumin Human (Albumin 5%) 25 gm IVPB Q6H PRN PRN Reason: To Maintain SBP > 90 mmHG Stop: 09/09/18 15:35 Last Admin: 09/09/18 01:39 Dose: 25 gm Albuterol/Ipratropium (Duoneb) 3 ml NEB [id number] [facility] Last Admin: 09/09/18 13:07 Dose: 3 ml Albuterol/Ipratropium (Duoneb) 3 ml NEB [id number] PRN PRN Reason: SHORTNESS OF BREATH Aspirin (Aspirin) 325 mg PO DAILY [facility] Last Admin: 09/09/18 08:40 Dose: 325 mg Bisacodyl (Dulcolax) 10 mg PO Q12H PRN PRN Reason: Constipation Bisacodyl (Dulcolax) 10 mg CO Q12H PRN PRN Reason: Constipation Budesonide (Pulmicort Neb Solution) 0.5 mg INH BID-RT [facility] Last Admin: 09/09/18 07:27 Dose: 0.5 mg Dextrose/Water (Dextrose 50%) 25 gm SLOW IVP PRN PRN PRN Reason: PER HYPOGLYCEMIC PROTOCOL Famotidine (Pepcid) 20 mg SLOW IVP Q12HR [facility] Last Admin: 09/09/18 08:40 Dose: 20 mg Furosemide (Lasix) 40 mg SLOW IVP 1700 [facility] Stop: 09/09/18 19:00 Glucagon (Glucagon) 1 mg SC PRN PRN PRN Reason: PER HYPOGLYCEMIC PROTOCOL Guaifenesin/Dextromethorphan (Robitussin Dm) 15 ml PO Q4H PRN PRN Reason: Cough Hydralazine HCl (Apresoline) 10 mg SLOW IVP Q6H PRN PRN Reason: To Maintain SBP< 140mmHG Amiodarone HCl 450 mg/ (Dextrose/Water) 259 mls @ 0 mls/hr IVPB INF [facility]; Protocol Last Admin: 09/09/18 03:14 Dose: 259 mls Potassium Chloride/Dextrose/Sod Cl (D5 1/2 Ns W/20 Meq Kcl) 1,000 mls @ 40 mls/ hr IV .Q24H [facility] Last Admin: 09/08/18 16:20 Dose: 1,000 mls Hetastarch/Sodium Chloride (Hespan) 500 mls @ 0 mls/hr IVPB PRN PRN PRN Reason: To Maintain SBP > 90mmHg Stop: 09/09/18 15:21 Norepinephrine Bitartrate (Levophed) 250 mls @ 0 mls/hr IVPB PRN PRN; Protocol PRN Reason: To maintain SBP > 90 mmHG Magnesium Sulfate 2 gm/ Device 50 mls @ 50 mls/hr IVPB QAM [facility] Stop: 09/10/18 09:59 Last Admin: 09/09/18 08:40 Dose: 50 mls Nitroglycerin/Dextrose (Nitroglycerin 50 Mg/250 Ml Bot) 250 mls @ 0 mls/hr IVPB PRN PRN; Protocol PRN Reason: To Maintain SBP< 140mmHG Insulin Human Regular 100 (units/ Sodium Chloride) 101 mls @ 0 mls/hr IVPB INF [facility]; Protocol Last Admin: 09/09/18 08:37 Dose: 101 mls Dextrose/Water (D5w) 1,000 mls @ 0 mls/hr IV INF PRN PRN Reason: PRN HYPOGLYCEMIC PROTOCOL Fentanyl Citrate 2,000 mcg/ (Sodium Chloride) 100 mls @ 0 mls/hr IV INF [facility]; Protocol Stop: 10/08/18 16:35 Last Admin: 09/08/18 17:34 Dose: 100 mls Fentanyl Citrate (Fentanyl Bolus) 250 mls @ 0 mls/hr IVPB PRN PRN PRN Reason: Breakthrough pain/agitation Stop: 10/08/18 16:35 Last Admin: 09/08/18 18:44 Dose: 2.5 mls Insulin Glargine 20 units/ (Miscellaneous Medication) 0.2 mls @ 0 mls/hr SC NOW [facility] Stop: 09/09/18 16:00 Insulin Human Regular (Humulin R) 0 units SC Q4H PRN; Protocol PRN Reason: POST OP SLIDING SCALE Ketorolac Tromethamine (Toradol) 30 mg IVP Q6HR [facility] Stop: 09/11/18 18:01 Last Admin: 09/09/18 05:24 Dose: 30 mg Lorazepam (Ativan) 2 mg SLOW IVP Q1H PRN PRN Reason: Breakthrough agitation Stop: 10/08/18 16:35 Morphine Sulfate (Morphine) 2 mg SLOW IVP Q1H PRN PRN Reason: BREAKTHROUGH PAIN/Agitation Stop: 10/08/18 16:35 Discontinue Previous Narcotic Pain Medications And Benzodiazepines 1 each FS .ONE [facility] Stop: 10/08/18 16:35 Ondansetron HCl (Zofran) 4 mg IVP Q6H PRN PRN Reason: Nausea/Vomiting Potassium Chloride (Kcl) 20 meq IVPB PRN PRN PRN Reason: K level </= 4.0 Last Admin: 09/08/18 23:54 Dose: 20 meq Promethazine HCl (Phenergan) 6.25 mg IM Q4H PRN PRN Reason: Nausea/Vomiting Propofol (Diprivan) 1,000 mg IV INF PRN; Protocol PRN Reason: TO ACHIEVE GOAL RASS Stop: 10/08/18 16:35 Last Admin: 09/09/18 05:25 Dose: 1,000 mg Propofol (Diprivan Bolus) 20 mg IV Q5MIN PRN PRN Reason: BREAKTHROUGH AGITATION Stop: 10/08/18 16:35
[2018-09-09] MEDS: Insulin Regular 300 UNITS/3 ML VIAL SC PRN (16:28)
[2018-09-09] MEDS: D5 1/2 NS w/20 mEq KCL 1,000 ML IV SCH (16:42)
[2018-09-09] MEDS ORDERED: Furosemide 20 MG/2 ML VIAL SLOW IVP SCH (17:00)
--- NOTE | 2018-09-09 20:50 | PRG ---
DATE OF SERVICE: 09/09/2018 SUBJECTIVE: Ms. George was examined this morning. She was in no distress. She was stayed for ventilation. She did awaken not and I explained to her that we were going to continue to start weaning her from mechanical ventilation. OBJECTIVE: VITAL SIGNS: Heart rate was in the 70s, respiratory rate is in teens to low 20s, blood pressures in the 130s. This evening blood pressure 139/66. INTAKE AND OUTPUT: Negative 878. LUNGS: Remarkable for end-expiratory wheezes. HEART: Regular rhythm. ABDOMEN: Soft. EXTREMITIES: Warm without edema. DIAGNOSTIC DATA: Chest x-ray reviewed by me shows small bilateral effusions and mild pulmonary edema. Her x-ray compared to yesterday's x-rays improved in my opinion. LABORATORY DATA: White count 14.9, hemoglobin 11.9, platelets 219,000. Sodium 136, potassium 4.7, chloride 109, bicarb 16, BUN 23, and creatinine 1.1. IMPRESSION: 1. Postop mechanical ventilation after coronary artery bypass grafting. 2. Heavy tobacco use up until this admission with mild bronchospasm. We will continue nebulizer treatments, ventilatory support. Hopefully, we can continue to progress with weaning and possibly even extubation in the morning just depending on her clinical condition. I met with her significant other and answered all the pertinent questions. Job ID: [id number]
[2018-09-10] MEDS: Ketorolac Tromethamine 30 MG/ML VIAL IVP SCH ×4 (00:01→17:03)
[2018-09-10] MEDS: Propofol 1,000 MG/100 ML VIAL IV PRN (05:14)
[2018-09-10 05:30] LABS: #Basophils 0.1 thou/uL (0.0-0.2); #Eosinphils 0.1 thou/uL (0.0-0.7); #Lymphocytes 2.5 thou/uL (1.20-3.40); #Neutrophils 8.5 thou/uL (1.40-6.50); %Basophils 0.5 % (0.0-1.0); %Eosinophils 0.5 % (0.0-10.0); %Lymphocytes 20.6 % (21.0-51.0); %Monocytes 8.4 % (0.0-10.0); Hemoglobin 11.5 g/dL (12.0-16.0); Mean Corpuscular HGB CONC 32.5 g/dL (32.0-36.0); Mean Corpuscular Volume 92.6 fL (78.0-98.0); Mean Platelet Volume 7.9 fL (7.4-10.4); Platelet Count 185 thou/uL (130-400); Red Blood Cell (RBC) Count 3.83 mill/uL (4.20-5.40); White Blood Cell (WBC) Count 12.2 thou/uL (4.8-10.8)
[2018-09-10 05:49] LABS: Anion Gap 11 mmol/L (10-20); BUN (Urea Nitrogen) 26 mg/dL (9.8-20.1); Calc. Creatinine Clearance 110 mL/min (70-130); Calcium 8.4 mg/dL (7.8-10.44); Carbon Dioxide 22 mmol/L (22-29); Chloride 106 mmol/L (98-107); Estimated GFR-MDRD 59; Glucose 308 mg/dL (70-105); Potassium 4.8 mmol/L (3.5-5.1); Sodium 134 mmol/L (136-145)
[2018-09-10] MEDS: Budesonide 0.5 MG/2 ML NEB INH SCH ×2 (07:37→18:52)
[2018-09-10 07:51] LABS: Actual Bicarbonate (HCO3a) 23.5 mEq/L (22-28); Base Excess (BEa) -0.6 mEq/L (-2.0 to +3.0); CO2 Tension 36.6 mmHg (35.0-45.0); Calcium, Ionized 1.19 mmol/L (1.12-1.30); Carboxyhemoglobin (COHb) 0.9 gm% (0.0-3.0); Hemoglobin (Hb) 11.9 g/dL (12.0-16.0); O2 Tension (PaO2) 90.8 mmHg (> 80.0); Potassium - ABG Lab 4.76 mmol/L (3.70-5.30); pH, Arterial 7.43 (7.35-7.45)
[2018-09-10 07:52] LABS: Puncture Site LR
[2018-09-10] MEDS: Insulin Regular 300 UNITS/3 ML VIAL SC PRN ×4 (08:02→20:24)
[2018-09-10] MEDS ORDERED: Metolazone 5 MG TAB PO SCH (08:15)
[2018-09-10] MEDS: Famotidine/PF 20 mg/2ml Vial SLOW IVP SCH ×2 (08:56→20:26)
[2018-09-10] MEDS: Magnesium 2 GM/50 ML 2 GM in Premix Bag 1 BAG IVPB SCH (08:57)
[2018-09-10] MEDS: Aspirin 325 MG TAB PO SCH (08:57)
[2018-09-10] MEDS: Furosemide 40 MG/4 ML VIAL SLOW IVP SCH ×2 (09:15→14:58)
--- NOTE | 2018-09-10 09:16 | RAD ---
PORTABLE AP CHEST: Date: 09/10/18 HISTORY: Post open heart surgery. COMPARISON: 01/07/19. FINDINGS: Endotracheal tube, nasogastric tube, right subclavian central venous catheter, and mediastinal drains remain in place and unchanged in position. Cardiac silhouette is enlarged. Again noted are small jayshree ateral pleural effusions and associated atelectasis. Pulmonary vasculature does remain mildly increas ed. Given differences in technique, chest is overall stable when compared to the prior study. IMPRESSION: Stable chest. POS: KARIN
[2018-09-10] MEDS: Amiodarone 450 MG in Dextrose 5% in Water 250 ML IVPB SCH (12:28)
--- NOTE | 2018-09-10 13:51 | PDOC.PN ---
- Subjective Encounter Start Date: 09/10/18 Encounter Start Time: 10:00 Pt seen for followup re: DM2. Intubated but alert, answering questions by nodding or shaking head. Reports chest soreness. No cough, fevers. No chortness of breath. No nausea. No abdo pain. - Objective Resuscitation Status - Order Detail: 09/07/18 20:22 Resuscitation Status Routine Resuscitation Status: FULL: Full Resuscitation MAR Reviewed: Yes Vital Signs & Weight: Vital Signs (12 hours) Pulse Resp BP Pulse Ox 09/10/18 12:45 98 09/10/18 12:42 72 22 H 100 09/10/18 10:10 96 09/10/18 10:05 74 128/76 09/10/18 08:00 99 09/10/18 07:37 66 114/65 09/10/18 06:00 14 09/10/18 04:00 16 09/10/18 03:04 62 09/10/18 02:00 10 L Weight Admit Weight 231 lb 14.821 oz Weight 251 lb 4.8 oz Most Recent Monitor Data Heart Rate from ECG 71 NIBP 121/68 NIBP BP-Mean 85 Respiration from ECG 1 SpO2 100 I&O: 09/09/18 09/10/18 09/11/18 06:59 06:59 06:59 Intake Total 2172.7 1726.8 Output Total 710 2280 Balance 1462.7 -553.2 Result Diagrams: 09/10/18 05:20 09/10/18 05:20 Additional Labs: Accuchecks 09/10/18 09/10/18 09/09/18 11:52 08:01 16:25 POC Glucose 272 H 307 H 139 H 09/09/18 09/09/18 09/09/18 14:59 14:04 12:01 POC Glucose 109 110 123 H 09/09/18 09/09/18 09/09/18 11:15 10:08 09:31 POC Glucose 114 H 99 98 09/09/18 06:55 POC Glucose 175 H EKG Reviewed by me: Yes (Tele: NSR) Phys Exam - Physical Examination Morbid obesity HEENT: moist MMs ETT Respiratory: clear to auscultation bilateral Cardiovascular: RRR Gastrointestinal: soft Neurological: moves all 4 limbs Psychiatric: normal affect Dx/Plan (1) DM2 (diabetes mellitus, type 2) Status: Chronic Comment: insulin sliding scale changed today (2) HTN (hypertension) Code(s): I10 - ESSENTIAL (PRIMARY) HYPERTENSION Status: Chronic Comment: controlled (3) Thyroid mass Code(s): E07.9 - DISORDER OF THYROID, UNSPECIFIED Status: Acute Comment: normal thyroid profile (4) STEMI (ST elevation myocardial infarction) Status: Acute Comment: s/p CABG - Plan * . Review of Systems - Review of Systems Cardiovascular: chest pain. negative: palpitations, orthopnea, paroxysmal nocturnal dyspnea, edema, light headedness Musculoskeletal: negative: Neck Pain, Shoulder Pain, Arm Pain, Back Pain, Hand Pain, Leg Pain, Foot Pain - Medications/Allergies Allergies/Adverse Reactions: Allergies Allergy/AdvReac Type Severity Reaction Status Date / Time iodine Allergy Verified 09/08/18 01:59 Medications: Current Medications Acetaminophen (Tylenol) 650 mg PO Q6H PRN PRN Reason: Headache/Fever Or Mild Pain Al Hydroxide/Mg Hydroxide (Maalox) 30 ml PO Q4H PRN PRN Reason: Indigestion Albuterol/Ipratropium (Duoneb) 3 ml NEB [id number] Last Admin: 09/10/18 12:42 Dose: 3 ml Albuterol/Ipratropium (Duoneb) 3 ml NEB [id number] PRN PRN Reason: SHORTNESS OF BREATH Aspirin (Aspirin) 325 mg PO DAILY [facility] Last Admin: 09/10/18 08:57 Dose: 325 mg Bisacodyl (Dulcolax) 10 mg PO Q12H PRN PRN Reason: Constipation Bisacodyl (Dulcolax) 10 mg DE Q12H PRN PRN Reason: Constipation Budesonide (Pulmicort Neb Solution) 0.5 mg INH BID-RT [facility] Last Admin: 09/10/18 07:37 Dose: 0.5 mg Dextrose/Water (Dextrose 50%) 25 gm SLOW IVP PRN PRN PRN Reason: PER HYPOGLYCEMIC PROTOCOL Famotidine (Pepcid) 20 mg SLOW IVP Q12HR [facility] Last Admin: 09/10/18 08:56 Dose: 20 mg Furosemide (Lasix) 40 mg SLOW IVP 0000,0800,1600 [facility] Stop: 09/11/18 00:01 Last Admin: 09/10/18 09:15 Dose: 40 mg Glucagon (Glucagon) 1 mg SC PRN PRN PRN Reason: PER HYPOGLYCEMIC PROTOCOL Guaifenesin/Dextromethorphan (Robitussin Dm) 15 ml PO Q4H PRN PRN Reason: Cough Hydralazine HCl (Apresoline) 10 mg SLOW IVP Q6H PRN PRN Reason: To Maintain SBP< 140mmHG Amiodarone HCl 450 mg/ (Dextrose/Water) 259 mls @ 0 mls/hr IVPB INF [facility]; Protocol Last Admin: 09/10/18 12:28 Dose: 259 mls Potassium Chloride/Dextrose/Sod Cl (D5 1/2 Ns W/20 Meq Kcl) 1,000 mls @ 40 mls/ hr IV .Q24H [facility] Last Admin: 09/09/18 16:42 Dose: 1,000 mls Norepinephrine Bitartrate (Levophed) 250 mls @ 0 mls/hr IVPB PRN PRN; Protocol PRN Reason: To maintain SBP > 90 mmHG Nitroglycerin/Dextrose (Nitroglycerin 50 Mg/250 Ml Bot) 250 mls @ 0 mls/hr IVPB PRN PRN; Protocol PRN Reason: To Maintain SBP< 140mmHG Insulin Human Regular 100 (units/ Sodium Chloride) 101 mls @ 0 mls/hr IVPB INF [facility]; Protocol Last Admin: 09/09/18 08:37 Dose: 101 mls Dextrose/Water (D5w) 1,000 mls @ 0 mls/hr IV INF PRN PRN Reason: PRN HYPOGLYCEMIC PROTOCOL Fentanyl Citrate 2,000 mcg/ (Sodium Chloride) 100 mls @ 0 mls/hr IV INF [facility]; Protocol Stop: 10/08/18 16:35 Last Admin: 09/08/18 17:34 Dose: 100 mls Fentanyl Citrate (Fentanyl Bolus) 250 mls @ 0 mls/hr IVPB PRN PRN PRN Reason: Breakthrough pain/agitation Stop: 10/08/18 16:35 Last Admin: 09/08/18 18:44 Dose: 2.5 mls Insulin Human Regular (Humulin R) 0 units SC .MILD SLIDING PRN; Protocol PRN Reason: MILD SLIDING SCALE Last Admin: 09/10/18 11:52 Dose: 10 unit Insulin Human Regular (Humulin R) 0 units SC .BEDTIME SLIDING SC PRN; Protocol PRN Reason: BEDTIME SLIDING SCALE Ketorolac Tromethamine (Toradol) 30 mg IVP Q6HR [facility] Stop: 09/11/18 18:01 Last Admin: 09/10/18 11:52 Dose: 30 mg Lorazepam (Ativan) 2 mg SLOW IVP Q1H PRN PRN Reason: Breakthrough agitation Stop: 10/08/18 16:35 Morphine Sulfate (Morphine) 2 mg SLOW IVP Q1H PRN PRN Reason: BREAKTHROUGH PAIN/Agitation Stop: 10/08/18 16:35 Discontinue Previous Narcotic Pain Medications And Benzodiazepines 1 each FS .ONE [facility] Stop: 10/08/18 16:35 Ondansetron HCl (Zofran) 4 mg IVP Q6H PRN PRN Reason: Nausea/Vomiting Potassium Chloride (Kcl) 20 meq IVPB PRN PRN PRN Reason: K level </= 4.0 Last Admin: 09/08/18 23:54 Dose: 20 meq Promethazine HCl (Phenergan) 6.25 mg IM Q4H PRN PRN Reason: Nausea/Vomiting Propofol (Diprivan) 1,000 mg IV INF PRN; Protocol PRN Reason: TO ACHIEVE GOAL RASS Stop: 10/08/18 16:35 Last Admin: 09/10/18 05:14 Dose: 1,000 mg Propofol (Diprivan Bolus) 20 mg IV Q5MIN PRN PRN Reason: BREAKTHROUGH AGITATION Stop: 10/08/18 16:35
--- NOTE | 2018-09-10 14:11 | PDOC.CTH ---
Cardiology Progress Note - Subjective Pt. seen and eval. by me. No overnight event. She is extubated,sitting up in chair. Chest tubes still in. - Objective Vital Signs Pulse Resp BP Pulse Ox 09/10/18 12:45 98 09/10/18 12:42 72 22 H 100 09/10/18 10:10 96 09/10/18 10:05 74 128/76 09/10/18 08:00 99 09/10/18 07:37 66 114/65 09/10/18 06:00 14 09/10/18 04:00 16 09/10/18 03:04 62 Admit Weight 231 lb 14.821 oz Weight 251 lb 4.8 oz 09/09/18 09/10/18 09/11/18 06:59 06:59 06:59 Intake Total 2172.7 1726.8 Output Total 710 2280 Balance 1462.7 -553.2 - Physical Examination General/Neuro: alert & oriented x3 Neck: no JVD present Lungs: CTA Heart: RRR Abdomen: NT/ND, soft - Telemetry Telemetry Rhythm: NSR - Labs Result Diagrams: 09/10/18 05:20 09/10/18 05:20 Troponin/CKMB Troponin I 16.392 ng/mL (< 0.028) H* 09/08/18 02:04 - Assessment/Plan 1. s/p CABG. stable. 2. DM 3. Hx. tobacco abuse. meds reviewed. I agree with the present management.
[2018-09-10] MEDS ORDERED: Fentanyl 100 MCG/2 ML VIAL SLOW IVP PRN ×2 (15:10→15:11)
[2018-09-10] MEDS: HYDROcodone/Acetaminophen 5/325 mg Tablet PO PRN (15:22)
--- NOTE | 2018-09-10 20:02 | PRG ---
DATE OF SERVICE: 09/10/2018 SUBJECTIVE: Ms. George is awake and alert, followed commands on all 4 extremities. She is in no distress. OBJECTIVE: LUNGS: Clear anteriorly. HEART: Regular rhythm. ABDOMEN: Soft. EXTREMITIES: Without asymmetry. Minute volume was approximately 8 L per minute. LABORATORY DATA: Blood gas showed pH 7.43, pCO2 of 36, pO2 of 90. Sodium 134, potassium 4.8, chloride 106, bicarb 22, BUN 26, and creatinine 0.9. White count 12.2, hemoglobin 11.5, and platelets 185. Intake and output, negative 553. IMPRESSION: 1. Postop mechanical ventilation after coronary artery bypass grafting. 2. Probable chronic obstructive pulmonary disease, felt she is a candidate for extubation. She was given spontaneous breathing trial. Met all criteria for extubation was successfully extubated. I met with family and answered all their questions. Critical care time 30 minutes. Job ID: [id number]
[2018-09-11] MEDS: Ketorolac Tromethamine 30 MG/ML VIAL IVP SCH ×4 (00:03→17:02)
[2018-09-11] MEDS: Furosemide 40 MG/4 ML VIAL SLOW IVP SCH (00:04)
[2018-09-11 04:50] LABS: #Basophils 0.1 thou/uL (0.0-0.2); #Eosinphils 0.2 thou/uL (0.0-0.7); #Neutrophils 6.9 thou/uL (1.40-6.50); %Basophils 0.6 % (0.0-1.0); %Eosinophils 1.4 % (0.0-10.0); %Lymphocytes 26.8 % (21.0-51.0); %Monocytes 8.9 % (0.0-10.0); %Neutrophils 62.4 % (42.0-75.0); Hemoglobin 11.8 g/dL (12.0-16.0); Mean Corpuscular HGB CONC 32.5 g/dL (32.0-36.0); Mean Corpuscular Volume 92.4 fL (78.0-98.0); Mean Platelet Volume 8.1 fL (7.4-10.4); Platelet Count 222 thou/uL (130-400); RBC Distribution Width 11.8 % (11.5-14.5); Red Blood Cell (RBC) Count 3.93 mill/uL (4.20-5.40); White Blood Cell (WBC) Count 11.1 thou/uL (4.8-10.8)
[2018-09-11 05:07] LABS: Anion Gap 12 mmol/L (10-20); BUN (Urea Nitrogen) 24 mg/dL (9.8-20.1); Calc. Creatinine Clearance 133 mL/min (70-130); Calcium 8.8 mg/dL (7.8-10.44); Carbon Dioxide 26 mmol/L (22-29); Chloride 102 mmol/L (98-107); Estimated GFR-MDRD 72; Glucose 156 mg/dL (70-105); Potassium 4.2 mmol/L (3.5-5.1); Sodium 136 mmol/L (136-145)
[2018-09-11] MEDS: Insulin Regular 300 UNITS/3 ML VIAL SC PRN ×2 (06:15→11:33)
[2018-09-11] MEDS ORDERED: Furosemide 40 MG/4 ML VIAL SLOW IVP SCH (07:15)
[2018-09-11] MEDS ORDERED: Metolazone 5 MG TAB PO SCH (07:15)
[2018-09-11] MEDS: Budesonide 0.5 MG/2 ML NEB INH SCH ×2 (07:25→18:37)
[2018-09-11] MEDS: Amiodarone 200 MG TAB PO SCH ×2 (07:34→21:02)
[2018-09-11] MEDS: Aspirin 325 MG TAB PO SCH (07:34)
[2018-09-11] MEDS: Famotidine/PF 20 mg/2ml Vial SLOW IVP SCH ×2 (07:34→21:03)
[2018-09-11] MEDS: glipiZIDE 5 MG TAB PO SCH ×2 (08:19→17:01)
--- NOTE | 2018-09-11 08:50 | RAD ---
SINGLE VIEW OF CHEST: Date: 09/11/18 COMPARISON: 09/10/18. HISTORY: Status post open heart surgery. FINDINGS: Single view of the chest shows an enlarged but stable cardiomediastinal silhouette. The central venou s catheter and chest tubes are unchanged in position. The endotracheal tube and NG tube have been rem sabi. There is no evidence of consolidation, mass, pneumothorax, or pleural effusion. IMPRESSION: Stable exam status post extubation. POS: KARIN
--- NOTE | 2018-09-11 12:09 | PRG ---
DATE OF SERVICE: 09/11/2018 SUBJECTIVE: Ariel looked great this morning. She is sitting in a chair by the window. She is in no distress. She is smiling and joking with me the entire time I was in the room. OBJECTIVE: VITAL SIGNS: Heart rate 74, blood pressure 109/58, respiratory rate 17, oximetry is 96. LUNGS: Clear. HEART: Regular rhythm. ABDOMEN: Soft. IMPRESSION: 1. Status post urgent coronary artery bypass grafting, clinically stable postextubation yesterday. 2. Diabetes. She actually may do well with an oral agent, so I would suggest that we start her on Glucotrol and every couple of days double the dose until we can get her blood glucoses consistently below 200 without insulin. This is affordable and she will likely be compliant with this. We will continue to follow her. Her lipid drugs will need to be prescribed as well and will need to be a generic drugs for henriquez reasons and stability of her bypass graft. She will also have inhibitor, aspirin, perhaps a low-dose beta hailey. We will just proceed slowly. She has made amazing progress in the last 24 hours. Critical care time 30 minutes. Job ID: [id number]
--- NOTE | 2018-09-11 16:41 | PDOC.PN ---
- Subjective Encounter Start Date: 09/11/18 Encounter Start Time: 09:00 Pt seen for followup re: DM2. Says she feels better. - Objective Resuscitation Status - Order Detail: 09/07/18 20:22 Resuscitation Status Routine Resuscitation Status: FULL: Full Resuscitation Vital Signs & Weight: Vital Signs (12 hours) Temp Pulse Pulse Pulse Resp BP BP 09/11/18 16:00 98.4 F 09/11/18 14:50 77 82 134/80 130/82 09/11/18 13:24 70 14 09/11/18 08:33 73 73 118/82 136/71 09/11/18 08:00 98.5 F 09/11/18 07:24 70 22 H Pulse Ox Pulse Ox Pulse Ox 09/11/18 16:00 94 L 09/11/18 14:50 94 L 95 09/11/18 13:24 92 L 09/11/18 08:33 95 96 09/11/18 08:00 93 L 09/11/18 07:24 95 Weight Admit Weight 231 lb 14.821 oz Weight 218 lb 7.36 oz Most Recent Monitor Data Heart Rate from ECG 78 NIBP 141/81 NIBP BP-Mean 101 Respiration from ECG 21 SpO2 95 I&O: 09/10/18 09/11/18 09/12/18 06:59 06:59 06:59 Intake Total 1726.8 1161 680 Output Total 2280 3560 1230 Balance -553.2 -2399 -550 Result Diagrams: 09/11/18 04:30 09/11/18 04:30 Additional Labs: Accuchecks 09/11/18 09/11/18 09/10/18 16:10 11:14 20:24 POC Glucose 133 H 214 H 272 H 09/10/18 17:07 POC Glucose 226 H Dx/Plan (1) DM2 (diabetes mellitus, type 2) Status: Chronic Comment: Started on glucotrol (2) HTN (hypertension) Code(s): I10 - ESSENTIAL (PRIMARY) HYPERTENSION Status: Chronic Comment: controlled (3) Thyroid mass Code(s): E07.9 - DISORDER OF THYROID, UNSPECIFIED Status: Acute Comment: will need workup whens table (4) STEMI (ST elevation myocardial infarction) Status: Acute Comment: s/p CABG - Plan * . Review of Systems - Review of Systems Respiratory: negative: Cough, Shortness of Breath, SOB with Excertion, Pleuritic Pain, Wheezing Cardiovascular: negative: chest pain, palpitations, orthopnea, paroxysmal nocturnal dyspnea, edema, light headedness - Medications/Allergies Allergies/Adverse Reactions: Allergies Allergy/AdvReac Type Severity Reaction Status Date / Time iodine Allergy Verified 09/08/18 01:59 Medications: Current Medications Acetaminophen (Tylenol) 650 mg PO Q6H PRN PRN Reason: Headache/Fever Or Mild Pain Hydrocodone Bitart/Acetaminophen ([place] 5/325) 1 tab PO Q4H PRN PRN Reason: PAIN SCALE 1-5 Last Admin: 09/10/18 15:22 Dose: 1 tab Hydrocodone Bitart/Acetaminophen ([place] 5/325) 2 tab PO Q4H PRN PRN Reason: PAIN SCALE 6-7 Al Hydroxide/Mg Hydroxide (Maalox) 30 ml PO Q4H PRN PRN Reason: Indigestion Albuterol/Ipratropium (Duoneb) 3 ml NEB [id number] [facility] Last Admin: 09/11/18 13:24 Dose: 3 ml Albuterol/Ipratropium (Duoneb) 3 ml NEB [id number] PRN PRN Reason: SHORTNESS OF BREATH Amiodarone HCl (Cordarone) 400 mg PO BID [facility] Last Admin: 09/11/18 07:34 Dose: 400 mg Aspirin (Aspirin) 325 mg PO DAILY [facility] Last Admin: 09/11/18 07:34 Dose: 325 mg Bisacodyl (Dulcolax) 10 mg PO Q12H PRN PRN Reason: Constipation Bisacodyl (Dulcolax) 10 mg UT Q12H PRN PRN Reason: Constipation Budesonide (Pulmicort Neb Solution) 0.5 mg INH BID-RT [facility] Last Admin: 09/11/18 07:25 Dose: 0.5 mg Carvedilol (Coreg) 1.5625 mg PO BID-[facility] Dextrose/Water (Dextrose 50%) 25 gm SLOW IVP PRN PRN PRN Reason: PER HYPOGLYCEMIC PROTOCOL Famotidine (Pepcid) 20 mg SLOW IVP Q12HR [facility] Last Admin: 09/11/18 07:34 Dose: 20 mg Fentanyl (Sublimaze) 25 mcg SLOW IVP Q2H PRN PRN Reason: .MODERATE PAIN Fentanyl (Sublimaze) 50 mcg SLOW IVP Q2H PRN PRN Reason: .SEVERE PAIN Glipizide (Glucotrol) 5 mg PO BID-[facility] Last Admin: 09/11/18 08:19 Dose: 5 mg Glucagon (Glucagon) 1 mg SC PRN PRN PRN Reason: PER HYPOGLYCEMIC PROTOCOL Guaifenesin/Dextromethorphan (Robitussin Dm) 15 ml PO Q4H PRN PRN Reason: Cough Hydralazine HCl (Apresoline) 10 mg SLOW IVP Q6H PRN PRN Reason: To Maintain SBP< 140mmHG Dextrose/Water (D5w) 1,000 mls @ 0 mls/hr IV INF PRN PRN Reason: PRN HYPOGLYCEMIC PROTOCOL Insulin Human Regular (Humulin R) 0 units SC .MILD SLIDING PRN; Protocol PRN Reason: MILD SLIDING SCALE Last Admin: 09/11/18 11:33 Dose: 5 unit Insulin Human Regular (Humulin R) 0 units SC .BEDTIME SLIDING SC PRN; Protocol PRN Reason: BEDTIME SLIDING SCALE Ketorolac Tromethamine (Toradol) 30 mg IVP Q6HR [facility] Stop: 09/11/18 18:01 Last Admin: 09/11/18 11:32 Dose: 30 mg Potassium Chloride (Kcl) 20 meq IVPB PRN PRN PRN Reason: K level </= 4.0 Last Admin: 09/08/18 23:54 Dose: 20 meq Promethazine HCl (Phenergan) 6.25 mg IM Q4H PRN PRN Reason: Nausea/Vomiting Sodium Chloride (Flush - Normal Saline) 10 ml IVF Q12HR [facility] Last Admin: 09/11/18 07:35 Dose: 10 ml Sodium Chloride (Flush - Normal Saline) 10 ml IVF PRN PRN PRN Reason: Saline Flush
[2018-09-11] MEDS ORDERED: Carvedilol 3.125 MG TAB PO SCH (17:00)
[2018-09-12] MEDS ORDERED: Artificial Tears 18 DROP/0.9 ML EA EYE PRN (01:50)
[2018-09-12] MEDS ORDERED: Bisacodyl 10 MG SUPP PR PRN (01:50)
[2018-09-12] MEDS ORDERED: Guaifenesin DM 100-10/5 ML UDCUP PO PRN (01:50)
[2018-09-12] MEDS ORDERED: Nitroglycerin 0.4 MG TAB (25 Tab Bottle) SL PRN (01:50)
[2018-09-12] MEDS ORDERED: Bisacodyl 5 MG TAB PO PRN (01:50)
[2018-09-12] MEDS ORDERED: diphenhydrAMINE 25 MG CAP PO PRN (01:50)
[2018-09-12] MEDS ORDERED: Zolpidem Tartrate 5 MG TAB PO PRN (01:50)
[2018-09-12] MEDS ORDERED: Mineral Oil ENEMA PR PRN (01:50)
[2018-09-12] MEDS ORDERED: Mag-Al 1200 mg/1200 mg/30 ML UDCUP PO PRN (01:50)
[2018-09-12] MEDS: HYDROcodone/Acetaminophen 5/325 mg Tablet PO PRN ×3 (02:20→20:05)
[2018-09-12] MEDS ORDERED: Simvastatin 40 MG TAB PO SCH ×2 (03:00→21:00)
[2018-09-12] MEDS ORDERED: Famotidine 20 MG TAB PO SCH (03:00)
[2018-09-12] MEDS ORDERED: Carvedilol 3.125 MG TAB PO SCH ×2 (03:00→09:00)
[2018-09-12 05:38] LABS: #Basophils 0.1 thou/uL (0.0-0.2); #Eosinphils 0.3 thou/uL (0.0-0.7); #Lymphocytes 2.3 thou/uL (1.20-3.40); #Neutrophils 6.8 thou/uL (1.40-6.50); %Basophils 0.8 % (0.0-1.0); %Lymphocytes 22.1 % (21.0-51.0); %Monocytes 9.6 % (0.0-10.0); %Neutrophils 64.6 % (42.0-75.0); Hemoglobin 12.6 g/dL (12.0-16.0); Mean Corpuscular Hemoglobin 30.3 pg (27.0-31.0); Mean Corpuscular Volume 91.8 fL (78.0-98.0); Mean Platelet Volume 8.3 fL (7.4-10.4); Platelet Count 264 thou/uL (130-400); RBC Distribution Width 11.6 % (11.5-14.5); Red Blood Cell (RBC) Count 4.16 mill/uL (4.20-5.40); White Blood Cell (WBC) Count 10.5 thou/uL (4.8-10.8)
[2018-09-12 06:02] LABS: Anion Gap 11 mmol/L (10-20); BUN (Urea Nitrogen) 28 mg/dL (9.8-20.1); Calc. Creatinine Clearance 109 mL/min (70-130); Calcium 8.8 mg/dL (7.8-10.44); Carbon Dioxide 27 mmol/L (22-29); Chloride 101 mmol/L (98-107); Estimated GFR-MDRD 67; Glucose 152 mg/dL (70-105); Potassium 4.2 mmol/L (3.5-5.1); Sodium 135 mmol/L (136-145)
[2018-09-12] MEDS ORDERED: Metolazone 5 MG TAB PO SCH (06:30)
[2018-09-12] MEDS: Budesonide 0.5 MG/2 ML NEB INH SCH ×2 (07:03→18:55)
[2018-09-12] MEDS: glipiZIDE 5 MG TAB PO SCH ×2 (07:40→16:47)
[2018-09-12] MEDS: Famotidine 20 MG TAB PO SCH ×2 (07:41→21:06)
[2018-09-12] MEDS: Furosemide 40 MG TAB PO SCH ×2 (07:41→14:36)
[2018-09-12] MEDS: Aspirin 325 mg Enteric Coated Tablet PO SCH (07:41)
[2018-09-12] MEDS: Potassium Chloride 10 MEQ TAB PO SCH ×2 (07:42→16:47)
[2018-09-12] MEDS: Amiodarone 200 MG TAB PO SCH ×3 (07:50→21:07)
[2018-09-12] MEDS: Insulin Regular 300 UNITS/3 ML VIAL SC PRN ×3 (11:49→21:12)
[2018-09-12] MEDS ORDERED: Ondansetron PF 4 MG/2 ML Vial IVP PRN (12:09)
--- NOTE | 2018-09-12 13:51 | PDOC.PN ---
- Subjective Encounter Start Date: 09/12/18 Encounter Start Time: 09:20 Pt seen for followup re: DM2. Feels better. - Objective Resuscitation Status - Order Detail: 09/07/18 20:22 Resuscitation Status Routine Resuscitation Status: FULL: Full Resuscitation MAR Reviewed: Yes Vital Signs & Weight: Vital Signs (12 hours) Temp Pulse Resp Pulse Ox 09/12/18 12:00 97.5 F L 09/12/18 08:00 97.8 F 93 L 09/12/18 07:03 96 18 93 L Weight Admit Weight 231 lb 14.821 oz Weight 217 lb 1.6 oz Most Recent Monitor Data Heart Rate from ECG 84 NIBP 99/64 NIBP BP-Mean 75 Respiration from ECG 18 SpO2 99 I&O: 09/11/18 09/12/18 09/13/18 06:59 06:59 06:59 Intake Total 1161 1180 150 Output Total 3560 1305 505 Balance -2399 -125 -355 Result Diagrams: 09/12/18 05:25 09/12/18 05:25 Additional Labs: Accuchecks 09/12/18 09/11/18 09/11/18 11:25 21:02 16:10 POC Glucose 211 H 147 H 133 H EKG Reviewed by me: Yes (Tele: a. eliecer) Phys Exam - Physical Examination Obese HEENT: moist MMs Neck: supple Respiratory: clear to auscultation bilateral Cardiovascular: irregular Gastrointestinal: soft Neurological: moves all 4 limbs Psychiatric: normal affect Dx/Plan (1) DM2 (diabetes mellitus, type 2) Status: Chronic Comment: Improving control (2) HTN (hypertension) Code(s): I10 - ESSENTIAL (PRIMARY) HYPERTENSION Status: Chronic Comment: controlled (3) Thyroid mass Code(s): E07.9 - DISORDER OF THYROID, UNSPECIFIED Status: Acute Comment: normal thyroid profile, check thyroid US (4) STEMI (ST elevation myocardial infarction) Status: Acute Comment: s/p CABG (5) PAF (paroxysmal atrial fibrillation) Code(s): I48.0 - PAROXYSMAL ATRIAL FIBRILLATION Status: Acute Comment: on amiodarone - Plan * . Review of Systems - Review of Systems Cardiovascular: negative: chest pain, palpitations, orthopnea, paroxysmal nocturnal dyspnea, edema, light headedness Gastrointestinal: negative: Nausea, Vomiting, Abdominal Pain, Diarrhea, Constipation, Melena, Hematochezia - Medications/Allergies Allergies/Adverse Reactions: Allergies Allergy/AdvReac Type Severity Reaction Status Date / Time iodine Allergy Verified 09/08/18 01:59 Medications: Current Medications Acetaminophen (Tylenol) 650 mg PO Q6H PRN PRN Reason: Headache/Fever Or Mild Pain Hydrocodone Bitart/Acetaminophen ([place] 5/325) 1 tab PO Q4H PRN PRN Reason: PAIN SCALE 1-5 Last Admin: 09/10/18 15:22 Dose: 1 tab Hydrocodone Bitart/Acetaminophen ([place] 5/325) 2 tab PO Q4H PRN PRN Reason: PAIN SCALE 6-7 Last Admin: 09/12/18 09:18 Dose: 2 tab Al Hydroxide/Mg Hydroxide (Maalox) 30 ml PO Q4H PRN PRN Reason: Indigestion Albuterol/Ipratropium (Duoneb) 3 ml NEB [id number] PRN PRN Reason: SHORTNESS OF BREATH Amiodarone HCl (Cordarone) 400 mg PO TID [facility] Last Admin: 09/12/18 07:50 Dose: 400 mg Artificial Tears (Tears Naturale) 0 drop EA EYE PRN PRN PRN Reason: Dry Eyes Aspirin (Ecotrin) 325 mg PO DAILY [facility] Last Admin: 09/12/18 07:41 Dose: 325 mg Atorvastatin Calcium (Lipitor) 40 mg PO HS [facility] Bisacodyl (Dulcolax) 10 mg PO Q12H PRN PRN Reason: Constipation Bisacodyl (Dulcolax) 10 mg [place] Q12H PRN PRN Reason: Constipation Budesonide (Pulmicort Neb Solution) 0.5 mg INH BID-RT [facility] Last Admin: 09/12/18 07:03 Dose: 0.5 mg Carvedilol (Coreg) 3.125 mg PO BID [facility] Last Admin: 09/12/18 07:42 Dose: 3.125 mg Dextrose/Water (Dextrose 50%) 25 gm SLOW IVP PRN PRN PRN Reason: PER HYPOGLYCEMIC PROTOCOL Diphenhydramine HCl (Benadryl) 25 mg PO Q6H PRN PRN Reason: Itching & Insomnia or Jonny Virgil Famotidine (Pepcid) 20 mg PO BID [facility] Last Admin: 09/12/18 07:41 Dose: 20 mg Fentanyl (Sublimaze) 25 mcg SLOW IVP Q2H PRN PRN Reason: .MODERATE PAIN Fentanyl (Sublimaze) 50 mcg SLOW IVP Q2H PRN PRN Reason: .SEVERE PAIN Furosemide (Lasix) 40 mg PO 0900,1400 [facility] Last Admin: 09/12/18 07:41 Dose: 40 mg Glipizide (Glucotrol) 5 mg PO BID-AC [facility] Last Admin: 09/12/18 07:40 Dose: 5 mg Glucagon (Glucagon) 1 mg SC PRN PRN PRN Reason: PER HYPOGLYCEMIC PROTOCOL Guaifenesin/Dextromethorphan (Robitussin Dm) 15 ml PO Q4H PRN PRN Reason: Cough Hydralazine HCl (Apresoline) 10 mg SLOW IVP Q6H PRN PRN Reason: To Maintain SBP< 140mmHG Dextrose/Water (D5w) 1,000 mls @ 0 mls/hr IV INF PRN PRN Reason: PRN HYPOGLYCEMIC PROTOCOL Insulin Human Regular (Humulin R) 0 units SC .MILD SLIDING PRN; Protocol PRN Reason: MILD SLIDING SCALE Last Admin: 09/12/18 11:49 Dose: 5 unit Insulin Human Regular (Humulin R) 0 units SC .BEDTIME SLIDING SC PRN; Protocol PRN Reason: BEDTIME SLIDING SCALE Mineral Oil (Fleet Mineral Oil) 133 ml [place] DAILYPRN PRN PRN Reason: Constipation Nitroglycerin (Nitrostat) 0.4 mg SL Q5MIN PRN PRN Reason: Chest Pain Ondansetron HCl (Zofran) 4 mg IVP Q6H PRN PRN Reason: Nausea/Vomiting Last Admin: 09/12/18 12:18 Dose: 4 mg Potassium Chloride (Kcl) 20 meq IVPB PRN PRN PRN Reason: K level </= 4.0 Last Admin: 09/08/18 23:54 Dose: 20 meq Potassium Chloride (Klor-Con 10) 10 meq PO BID-[facility] Last Admin: 09/12/18 07:42 Dose: 10 meq Promethazine HCl (Phenergan) 6.25 mg IM Q4H PRN PRN Reason: Nausea/Vomiting Sertraline HCl (Zoloft) 50 mg PO DAILY [facility] Last Admin: 09/12/18 07:41 Dose: 50 mg Sodium Chloride (Flush - Normal Saline) 10 ml IVF Q12HR [facility] Last Admin: 09/12/18 07:42 Dose: 10 ml Sodium Chloride (Flush - Normal Saline) 10 ml IVF PRN PRN PRN Reason: Saline Flush Zolpidem Tartrate (Ambien) 5 mg PO HSPRN PRN PRN Reason: Insomnia
--- NOTE | 2018-09-12 16:23 | ULT ---
THYROID SONOGRAM: 09/12/18 HISTORY: Left thyroid mass. Abnormal CT scan. FINDINGS: Right thyroid lobe is 3.8 cm and has a normal appearance. Isthmus is 0.4 cm. Left thyroid lobe measures up to 4.4 cm. Predominantly replacing the left thyroid lobe is a heterogen eous lobular hypoechoic mass measuring 2.6 x 2.3 x 2.0 cm diameters. IMPRESSION: Large dominant hypoechoic mass replacing the left thyroid lobe. Please consider ENT evaluation and cy tologic analysis. Sonographic guided fine needle aspiration could be performed on an outpatient basis if so desired. POS: KARIN
--- NOTE | 2018-09-12 19:39 | PRG ---
DATE OF SERVICE: 09/12/2018 SUBJECTIVE: Azalea George was walking in the zapata today with nurses. She is reporting that when she stands up, she gets nauseated. Her nurse, Rosalva, noticed that she has dropped her blood pressure into the 80s when she stands up. I asked them to notify Cardiology. Remainder of exam is unchanged. LABORATORY DATA: White count is 10.5, hemoglobin 12.6, platelets 264. Sodium 135, potassium 4.2, chloride 101, bicarb 27, BUN 28, and creatinine 0.86. Glucoses have been in the 130s to low 200s. Continue with 5 mg of glipizide but probably tomorrow we could change her to 10 mg twice a day glipizide. She will get better glucose control. Overall, she is stable with no orthostatic symptoms, which will be relayed to Cardiology. Job ID: [id number]
[2018-09-12] MEDS: Atorvastatin Calcium 40 MG TAB PO SCH (21:06)
[2018-09-12] MEDS: Carvedilol 3.125 MG TAB PO SCH (21:10)
[2018-09-13] MEDS: HYDROcodone/Acetaminophen 5/325 mg Tablet PO PRN ×2 (03:44→20:54)
--- NOTE | 2018-09-13 08:02 | EKG ---
Blood Pressure : / mmHG Vent. Rate : 082 BPM Atrial Rate : 129 BPM P-R Int : 000 ms QRS Dur : 086 ms QT Int : 376 ms P-R-T Axes : 000 037 116 degrees QTc Int : 439 ms Atrial fibrillation Anteroseptal infarct (cited on or before 07-SEP-2018) Abnormal ECG When compared with ECG of 08-SEP-2018 16:01, (Unconfirmed) Atrial fibrillation has replaced Sinus rhythm Nonspecific T wave abnormality now evident in Inferior leads Nonspecific T wave abnormality now evident in Lateral leads Confirmed by NANCY GONZALEZ ([id number]) on 09/13/2018 8:02:06 AM Referred By: [email or web address] Confirmed By:NANCY GONZALEZ
[2018-09-13] MEDS: glipiZIDE 5 MG TAB PO SCH ×2 (09:21→17:27)
[2018-09-13] MEDS: Furosemide 40 MG TAB PO SCH ×2 (09:23→14:57)
[2018-09-13] MEDS: Famotidine 20 MG TAB PO SCH ×2 (09:23→20:54)
[2018-09-13] MEDS: Potassium Chloride 10 MEQ TAB PO SCH ×2 (09:24→17:27)
[2018-09-13] MEDS: Aspirin 325 mg Enteric Coated Tablet PO SCH (09:24)
[2018-09-13] MEDS: Carvedilol 3.125 MG TAB PO SCH ×2 (09:27→20:54)
[2018-09-13] MEDS: Amiodarone 200 MG TAB PO SCH ×3 (09:28→20:53)
[2018-09-13] MEDS: Budesonide 0.5 MG/2 ML NEB INH SCH ×2 (11:19→18:41)
--- NOTE | 2018-09-13 12:16 | PDOC.PN ---
- Subjective Encounter Start Date: 09/13/18 Encounter Start Time: 08:00 Pt seen for followup re: DM2. Denies chest pain or shortness of breath. - Objective Resuscitation Status - Order Detail: 09/12/18 19:20 Resuscitation Status Routine Co-Sign Provider: Resuscitation Status: DNAR: NO Resuscitation Discussed with: Patient MAR Reviewed: Yes Vital Signs & Weight: Vital Signs (12 hours) Temp Pulse Pulse Pulse Resp BP BP 09/13/18 11:19 70 16 09/13/18 09:39 75 68 132/68 139/78 09/13/18 08:00 97.4 F L 64 18 09/13/18 04:00 99.2 F 60 18 BP BP Pulse Ox Pulse Ox 09/13/18 11:19 94 L 09/13/18 09:39 92 L 09/13/18 08:00 124/63 92 L 09/13/18 04:00 109/55 L 94 L Weight Admit Weight 231 lb 14.821 oz Weight 213 lb 8 oz Most Recent Monitor Data Heart Rate from ECG 70 NIBP 108/61 NIBP BP-Mean 76 Respiration from ECG 20 SpO2 100 I&O: 09/12/18 09/13/18 09/14/18 06:59 06:59 06:59 Intake Total 1180 575 Output Total 1305 1205 Balance -125 -630 Result Diagrams: 09/12/18 05:25 09/12/18 05:25 Additional Labs: Accuchecks 09/13/18 09/13/18 09/12/18 10:38 05:37 20:59 POC Glucose 306 H 143 H 215 H 09/12/18 16:35 POC Glucose 198 H EKG Reviewed by me: Yes (Tele: NSR) Phys Exam - Physical Examination Constitutional: NAD HEENT: moist MMs Neck: supple Respiratory: clear to auscultation bilateral Cardiovascular: RRR Gastrointestinal: soft Neurological: moves all 4 limbs Psychiatric: normal affect Dx/Plan (1) DM2 (diabetes mellitus, type 2) Status: Chronic Comment: continue accuchecks and insulin sliding scale (2) HTN (hypertension) Code(s): I10 - ESSENTIAL (PRIMARY) HYPERTENSION Status: Chronic Comment: controlled (3) Thyroid mass Code(s): E07.9 - DISORDER OF THYROID, UNSPECIFIED Status: Acute Comment: discussed with pt the need to have further workup and ENT consult as outpt once cardiac issues more stable (4) STEMI (ST elevation myocardial infarction) Status: Acute Comment: s/p CABG (5) PAF (paroxysmal atrial fibrillation) Code(s): I48.0 - PAROXYSMAL ATRIAL FIBRILLATION Status: Acute Comment: continue amiodarone - Plan PT/OT, out of bed/ambulate * . Review of Systems - Review of Systems Cardiovascular: negative: chest pain, palpitations, orthopnea, paroxysmal nocturnal dyspnea, edema, light headedness Gastrointestinal: negative: Nausea, Vomiting, Abdominal Pain, Diarrhea, Constipation, Melena, Hematochezia - Medications/Allergies Allergies/Adverse Reactions: Allergies Allergy/AdvReac Type Severity Reaction Status Date / Time iodine Allergy Verified 09/08/18 01:59 Medications: Current Medications Acetaminophen (Tylenol) 650 mg PO Q6H PRN PRN Reason: Headache/Fever Or Mild Pain Hydrocodone Bitart/Acetaminophen ([place] 5/325) 1 tab PO Q4H PRN PRN Reason: PAIN SCALE 1-5 Last Admin: 09/13/18 03:44 Dose: 1 tab Hydrocodone Bitart/Acetaminophen ([place] 5/325) 2 tab PO Q4H PRN PRN Reason: PAIN SCALE 6-7 Last Admin: 09/12/18 20:05 Dose: 2 tab Al Hydroxide/Mg Hydroxide (Maalox) 30 ml PO Q4H PRN PRN Reason: Indigestion Albuterol/Ipratropium (Duoneb) 3 ml NEB [id number] PRN PRN Reason: SHORTNESS OF BREATH Amiodarone HCl (Cordarone) 400 mg PO TID [facility] Last Admin: 09/13/18 09:28 Dose: 400 mg Artificial Tears (Tears Naturale) 0 drop EA EYE PRN PRN PRN Reason: Dry Eyes Aspirin (Ecotrin) 325 mg PO DAILY [facility] Last Admin: 09/13/18 09:24 Dose: 325 mg Atorvastatin Calcium (Lipitor) 40 mg PO HS [facility] Last Admin: 09/12/18 21:06 Dose: 40 mg Bisacodyl (Dulcolax) 10 mg PO Q12H PRN PRN Reason: Constipation Bisacodyl (Dulcolax) 10 mg [place] Q12H PRN PRN Reason: Constipation Budesonide (Pulmicort Neb Solution) 0.5 mg INH BID-RT [facility] Last Admin: 09/13/18 11:19 Dose: 0.5 mg Carvedilol (Coreg) 1.5625 mg PO BID [facility] Last Admin: 09/13/18 09:27 Dose: 1.5625 mg Dextrose/Water (Dextrose 50%) 25 gm SLOW IVP PRN PRN PRN Reason: PER HYPOGLYCEMIC PROTOCOL Diphenhydramine HCl (Benadryl) 25 mg PO Q6H PRN PRN Reason: Itching & Insomnia or Jonny Virgil Famotidine (Pepcid) 20 mg PO BID [facility] Last Admin: 09/13/18 09:23 Dose: 20 mg Fentanyl (Sublimaze) 25 mcg SLOW IVP Q2H PRN PRN Reason: .MODERATE PAIN Fentanyl (Sublimaze) 50 mcg SLOW IVP Q2H PRN PRN Reason: .SEVERE PAIN Furosemide (Lasix) 40 mg PO 0900,1400 [facility] Last Admin: 09/13/18 09:23 Dose: 40 mg Glipizide (Glucotrol) 5 mg PO BID-AC [facility] Last Admin: 09/13/18 09:21 Dose: 5 mg Glucagon (Glucagon) 1 mg SC PRN PRN PRN Reason: PER HYPOGLYCEMIC PROTOCOL Guaifenesin/Dextromethorphan (Robitussin Dm) 15 ml PO Q4H PRN PRN Reason: Cough Hydralazine HCl (Apresoline) 10 mg SLOW IVP Q6H PRN PRN Reason: To Maintain SBP< 140mmHG Dextrose/Water (D5w) 1,000 mls @ 0 mls/hr IV INF PRN PRN Reason: PRN HYPOGLYCEMIC PROTOCOL Insulin Human Regular (Humulin R) 0 units [place] .MILD SLIDING PRN; Protocol PRN Reason: MILD SLIDING SCALE Last Admin: 09/12/18 16:47 Dose: 3 unit Insulin Human Regular (Humulin R) 0 units SC .BEDTIME SLIDING SC PRN; Protocol PRN Reason: BEDTIME SLIDING SCALE Last Admin: 09/12/18 21:12 Dose: 5 unit Mineral Oil (Fleet Mineral Oil) 133 ml [place] DAILYPRN PRN PRN Reason: Constipation Nitroglycerin (Nitrostat) 0.4 mg SL Q5MIN PRN PRN Reason: Chest Pain Ondansetron HCl (Zofran) 4 mg IVP Q6H PRN PRN Reason: Nausea/Vomiting Last Admin: 09/12/18 12:18 Dose: 4 mg Potassium Chloride (Kcl) 20 meq IVPB PRN PRN PRN Reason: K level </= 4.0 Last Admin: 09/08/18 23:54 Dose: 20 meq Potassium Chloride (Klor-Con 10) 10 meq PO BID-[facility] Last Admin: 09/13/18 09:24 Dose: 10 meq Promethazine HCl (Phenergan) 6.25 mg IM Q4H PRN PRN Reason: Nausea/Vomiting Sertraline HCl (Zoloft) 50 mg PO DAILY [facility] Last Admin: 09/13/18 09:21 Dose: 50 mg Sodium Chloride (Flush - Normal Saline) 10 ml IVF Q12HR [facility] Last Admin: 09/13/18 09:29 Dose: 10 ml Sodium Chloride (Flush - Normal Saline) 10 ml IVF PRN PRN PRN Reason: Saline Flush Zolpidem Tartrate (Ambien) 5 mg PO HSPRN PRN PRN Reason: Insomnia
[2018-09-13] MEDS: Insulin Regular 300 UNITS/3 ML VIAL SC PRN ×2 (12:50→20:55)
[2018-09-13] MEDS: Atorvastatin Calcium 40 MG TAB PO SCH (20:53)
--- NOTE | 2018-09-13 21:11 | PRG ---
DATE OF SERVICE: 09/13/2018 SUBJECTIVE: Ms. George is in no distress. She is walking in the [place]. She is no longer having orthostatic symptoms. Her glucose control is improving. We plan to increase her Glucotrol today. OBJECTIVE: VITAL SIGNS: She is afebrile, heart rate 81, respiratory rate 16, oximetry is 93% on room air, and blood pressure 130/77. LUNGS: Clear. HEART: Regular rhythm. S1 and S2 are normal. ABDOMEN: Soft and nontender. EXTREMITIES: Without asymmetry or edema. She is still receiving intermittent insulin, so increasing her Glucotrol now. She said for several days her glucose control is reasonable. IMPRESSION: 1. Status post coronary artery bypass grafting. 2. ? chronic obstructive pulmonary disease. 3. Intermittent atrial fibrillation, on amiodarone. 4. Diabetes. We will increase her glipizide, this is expensive and may be much more effective than the absolute nothing that she was doing prior to admission with her diabetes. Job ID: [id number]
[2018-09-14] MEDS: Budesonide 0.5 MG/2 ML NEB INH SCH ×2 (07:21→19:07)
[2018-09-14] MEDS: Famotidine 20 MG TAB PO SCH ×2 (10:03→21:25)
[2018-09-14] MEDS: Amiodarone 200 MG TAB PO SCH ×3 (10:04→21:24)
[2018-09-14] MEDS: Carvedilol 3.125 MG TAB PO SCH ×2 (10:04→21:23)
[2018-09-14] MEDS: Aspirin 325 mg Enteric Coated Tablet PO SCH (10:04)
[2018-09-14] MEDS: Furosemide 40 MG TAB PO SCH ×2 (10:05→13:57)
[2018-09-14] MEDS: glipiZIDE 5 MG TAB PO SCH ×2 (10:05→16:37)
[2018-09-14] MEDS: Potassium Chloride 10 MEQ TAB PO SCH ×2 (10:06→16:37)
[2018-09-14 12:47] VITALS: BMI 36.6
[2018-09-14] MEDS: Insulin Regular 300 UNITS/3 ML VIAL SC PRN ×3 (13:57→21:27)
--- NOTE | 2018-09-14 17:16 | PDOC.PN ---
- Subjective Encounter Start Date: 09/14/18 Encounter Start Time: 17:16 Pt seen for followup re: DM2. Says she feels well. - Objective Resuscitation Status - Order Detail: 09/14/18 05:40 Resuscitation Status Routine Resuscitation Status: FULL: Full Resuscitation Vital Signs & Weight: Vital Signs (12 hours) Temp Pulse Pulse Pulse Resp BP BP 09/14/18 16:30 98.5 F 65 18 09/14/18 12:00 97.6 F 66 16 09/14/18 09:02 68 65 137/74 123/74 09/14/18 08:00 97.7 F 60 18 09/14/18 07:21 70 12 BP BP Pulse Ox 09/14/18 16:30 116/59 L 09/14/18 12:00 115/56 L 93 L 09/14/18 09:02 09/14/18 08:00 123/65 93 L 09/14/18 07:21 Weight Admit Weight 231 lb 14.821 oz Weight 213 lb 8 oz Most Recent Monitor Data Heart Rate from ECG 70 NIBP 108/61 NIBP BP-Mean 76 Respiration from ECG 20 SpO2 100 I&O: 09/13/18 09/14/18 09/15/18 06:59 06:59 06:59 Intake Total 575 610 Output Total 1205 700 Balance -630 -90 Result Diagrams: 09/12/18 05:25 09/12/18 05:25 Additional Labs: Accuchecks 09/14/18 09/14/18 09/14/18 16:49 11:29 05:42 POC Glucose 163 H 236 H 162 H 09/13/18 20:23 POC Glucose 249 H Phys Exam - Physical Examination Constitutional: NAD HEENT: moist MMs Neck: supple Respiratory: clear to auscultation bilateral Cardiovascular: RRR Gastrointestinal: soft Neurological: moves all 4 limbs Psychiatric: normal affect Dx/Plan (1) DM2 (diabetes mellitus, type 2) Status: Chronic Comment: accuchecks and insulin sliding scale (2) HTN (hypertension) Code(s): I10 - ESSENTIAL (PRIMARY) HYPERTENSION Status: Chronic Comment: controlled (3) Thyroid mass Code(s): E07.9 - DISORDER OF THYROID, UNSPECIFIED Status: Acute Comment: further workup and ENT consult as outpt (4) STEMI (ST elevation myocardial infarction) Status: Acute Comment: s/p CABG (5) PAF (paroxysmal atrial fibrillation) Code(s): I48.0 - PAROXYSMAL ATRIAL FIBRILLATION Status: Acute Comment: on amiodarone - Plan * . Review of Systems - Review of Systems Respiratory: negative: Cough, Shortness of Breath, SOB with Excertion, Pleuritic Pain, Wheezing Cardiovascular: negative: chest pain, palpitations, orthopnea, paroxysmal nocturnal dyspnea, edema, light headedness - Medications/Allergies Allergies/Adverse Reactions: Allergies Allergy/AdvReac Type Severity Reaction Status Date / Time iodine Allergy Verified 09/08/18 01:59 Medications: Current Medications Acetaminophen (Tylenol) 650 mg PO Q6H PRN PRN Reason: Headache/Fever Or Mild Pain Hydrocodone Bitart/Acetaminophen ([place] 5/325) 1 tab PO Q4H PRN PRN Reason: PAIN SCALE 1-5 Last Admin: 09/13/18 20:54 Dose: 1 tab Hydrocodone Bitart/Acetaminophen ([place] 5/325) 2 tab PO Q4H PRN PRN Reason: PAIN SCALE 6-7 Last Admin: 09/12/18 20:05 Dose: 2 tab Al Hydroxide/Mg Hydroxide (Maalox) 30 ml PO Q4H PRN PRN Reason: Indigestion Albuterol/Ipratropium (Duoneb) 3 ml NEB [id number] PRN PRN Reason: SHORTNESS OF BREATH Last Admin: 09/14/18 07:21 Dose: 3 ml Amiodarone HCl (Cordarone) 400 mg PO TID [facility] Last Admin: 09/14/18 16:37 Dose: 400 mg Artificial Tears (Tears Naturale) 0 drop EA EYE PRN PRN PRN Reason: Dry Eyes Aspirin (Ecotrin) 325 mg PO DAILY [facility] Last Admin: 09/14/18 10:04 Dose: 325 mg Atorvastatin Calcium (Lipitor) 40 mg PO HS [facility] Last Admin: 09/13/18 20:53 Dose: 40 mg Bisacodyl (Dulcolax) 10 mg PO Q12H PRN PRN Reason: Constipation Bisacodyl (Dulcolax) 10 mg [place] Q12H PRN PRN Reason: Constipation Budesonide (Pulmicort Neb Solution) 0.5 mg INH BID-RT [facility] Last Admin: 09/14/18 07:21 Dose: 0.5 mg Carvedilol (Coreg) 1.5625 mg PO BID [facility] Last Admin: 09/14/18 10:04 Dose: 1.5625 mg Dextrose/Water (Dextrose 50%) 25 gm SLOW IVP PRN PRN PRN Reason: PER HYPOGLYCEMIC PROTOCOL Diphenhydramine HCl (Benadryl) 25 mg PO Q6H PRN PRN Reason: Itching & Insomnia or Jonny Virgil Famotidine (Pepcid) 20 mg PO BID [facility] Last Admin: 09/14/18 10:03 Dose: 20 mg Fentanyl (Sublimaze) 25 mcg SLOW IVP Q2H PRN PRN Reason: .MODERATE PAIN Fentanyl (Sublimaze) 50 mcg SLOW IVP Q2H PRN PRN Reason: .SEVERE PAIN Furosemide (Lasix) 40 mg PO 0900,1400 [facility] Last Admin: 09/14/18 13:57 Dose: 40 mg Glipizide (Glucotrol) 10 mg PO BID-AC [facility] Last Admin: 09/14/18 16:37 Dose: 10 mg Glucagon (Glucagon) 1 mg SC PRN PRN PRN Reason: PER HYPOGLYCEMIC PROTOCOL Guaifenesin/Dextromethorphan (Robitussin Dm) 15 ml PO Q4H PRN PRN Reason: Cough Hydralazine HCl (Apresoline) 10 mg SLOW IVP Q6H PRN PRN Reason: To Maintain SBP< 140mmHG Dextrose/Water (D5w) 1,000 mls @ 0 mls/hr IV INF PRN PRN Reason: PRN HYPOGLYCEMIC PROTOCOL Insulin Human Regular (Humulin R) 0 units SC .MILD SLIDING PRN; Protocol PRN Reason: MILD SLIDING SCALE Last Admin: 09/14/18 16:50 Dose: 3 unit Insulin Human Regular (Humulin R) 0 units SC .BEDTIME SLIDING SC PRN; Protocol PRN Reason: BEDTIME SLIDING SCALE Last Admin: 09/13/18 20:55 Dose: 5 unit Mineral Oil (Fleet Mineral Oil) 133 ml [place] DAILYPRN PRN PRN Reason: Constipation Nitroglycerin (Nitrostat) 0.4 mg SL Q5MIN PRN PRN Reason: Chest Pain Ondansetron HCl (Zofran) 4 mg IVP Q6H PRN PRN Reason: Nausea/Vomiting Last Admin: 09/12/18 12:18 Dose: 4 mg Potassium Chloride (Kcl) 20 meq IVPB PRN PRN PRN Reason: K level </= 4.0 Last Admin: 09/08/18 23:54 Dose: 20 meq Potassium Chloride (Klor-Con 10) 10 meq PO BID-[facility] Last Admin: 09/14/18 16:37 Dose: 10 meq Promethazine HCl (Phenergan) 6.25 mg IM Q4H PRN PRN Reason: Nausea/Vomiting Sertraline HCl (Zoloft) 50 mg PO DAILY [facility] Last Admin: 09/14/18 10:03 Dose: 50 mg Sodium Chloride (Flush - Normal Saline) 10 ml IVF Q12HR [facility] Last Admin: 09/14/18 10:06 Dose: 10 ml Sodium Chloride (Flush - Normal Saline) 10 ml IVF PRN PRN PRN Reason: Saline Flush Zolpidem Tartrate (Ambien) 5 mg PO HSPRN PRN PRN Reason: Insomnia
[2018-09-14] MEDS: Atorvastatin Calcium 40 MG TAB PO SCH (21:24)
[2018-09-14] MEDS: HYDROcodone/Acetaminophen 5/325 mg Tablet PO PRN (21:25)
--- NOTE | 2018-09-15 07:00 | PRG ---
DATE OF SERVICE: 09/14/2018 SUBJECTIVE: Azalea George is doing well. She has no complaints. OBJECTIVE: VITAL SIGNS: Blood pressure 116/59, heart rate is in the 60s, respiratory rate 17, oximetry is 93% on room air. LUNGS: Clear. HEART: Regular rhythm. ABDOMEN: Soft. IMPRESSION: 1. Status post coronary artery bypass grafting. 2. Blood loss anemia. 3. Diabetes with glucoses that are trending toward being below 250. I would leave her on 5 mg glucotrol twice a day, just have her primary care doctor check her in 10 to 14 days, and keep a diary of morning and evening blood glucoses. She has a glucometer at home. 4. She may have chronic obstructive pulmonary disease, but I have watched her walk down the zapata. She is not having any significant dyspnea that was greater than I would expect after coronary artery bypass grafting. I will be happy to see her in the future and do pulmonary function tests to evaluate her in the office. Once she has recovered from this, I probably would not do that before 6 to 8 weeks. We would let her sternum to heal and let her get her strength back. She appears to be stable at this time. Continues on amiodarone for atrial fibrillation . We discussed absolute smoking cessation and strong goals toward diabetes control to protect her coronary artery bypass grafts. She may not need to be sent home on any inhalers at all in my opinion and I could certainly work around anytime when she is discharged if she develops some wheezing. Job ID: [id number]
[2018-09-15] MEDS: Budesonide 0.5 MG/2 ML NEB INH SCH (07:41)
[2018-09-15] MEDS: Potassium Chloride 10 MEQ TAB PO SCH ×2 (08:36→16:00)
[2018-09-15] MEDS: glipiZIDE 5 MG TAB PO SCH ×2 (08:36→15:57)
[2018-09-15] MEDS: Furosemide 40 MG TAB PO SCH ×2 (08:37→13:10)
[2018-09-15] MEDS: Aspirin 325 mg Enteric Coated Tablet PO SCH (08:37)
[2018-09-15] MEDS: Amiodarone 200 MG TAB PO SCH ×2 (08:37→14:54)
[2018-09-15] MEDS: Famotidine 20 MG TAB PO SCH (08:37)
[2018-09-15] MEDS: Carvedilol 3.125 MG TAB PO SCH (08:37)
--- NOTE | 2018-09-15 08:59 | DIS ---
DATE OF ADMISSION: 09/07/2018 DATE OF DISCHARGE: 09/15/2018 DIAGNOSES: 1. Coronary artery disease. 2. Morbid obesity. 3. Diabetes mellitus. 4. Dyslipidemia. 5. Hypertension. 6. Tobacco abuse. PROCEDURES: 1. Cardiac catheterization. 2. Coronary artery bypass grafting x3 -. a. Saphenous vein to diagonal. b. Saphenous vein to obtuse marginal. c. Saphenous vein to patent ductus arteriosus. Note; the left anterior descending territory was infarcted previously and scarred. DESCRIPTION OF HOSPITAL STAY: Ms. George presented through the emergency department with non-ST elevation myocardial infarction. She was given TNK and brought here for further workup. Catheterization revealed severe three-vessel disease. She had a LAD stent previously placed in the [place] and this territory of her heart appeared to be thinned and akinetic. She was taken to the operating room on emergency basis, underwent bypass as above. Postoperatively, she has done well. She had atrial fibrillation preoperatively. Her left atrial appendage was ligated in the operating room. Remainder of her hospital stay, she has been sent to recovery room from surgery. At the time of discharge, she is ambulatory, tolerating regular diet, having good bowel and bladder function. Incisions are clean and dry without evidence of infection. DISCHARGE MEDICATIONS: Include; 1. Aspirin 325 mg daily. 2. Amiodarone 400 mg t.i.d. for 2 weeks followed by b.i.d. for 3 total months of therapy. 3. Lipitor 40 mg at bedtime. 4. Coreg 1.5625 mg b.i.d. 5. Lasix 40 mg b.i.d. 6. Potassium 10 mEq b.i.d. 7. Glucotrol 10 mg b.i.d. FOLLOWUP: Followup is with me in [address] Mancia in a month. Job ID: [id number]
[2018-09-15] MEDS: Insulin Regular 300 UNITS/3 ML VIAL SC PRN (11:34)
--- NOTE | 2018-09-15 11:46 | PRG ---
DATE OF SERVICE: 09/15/2018 SUBJECTIVE: Azalea George has been ambulating in the [place] with minimal dyspnea. She says she is ready to go home. OBJECTIVE: VITAL SIGNS: She is afebrile, heart rate 61, respiratory rate 16, oximetry is 97% on room air, blood pressure 134/71. LUNGS: Clear. HEART: Regular rhythm. ABDOMEN: Soft. EXTREMITIES: Without asymmetry. LABORATORY DATA: Glucoses have been for the most part, less than 236. She will continue Glucotrol twice a day. She will keep her morning and evening diary. I will see her in 6 to 8 weeks and perhaps at that time do spirometry if she really does have obstructive lung disease. She clinically has done extremely well other than requiring mechanical ventilation for a few days postop. She looks bright today. I agree with discharge. Job ID: [id number]
--- NOTE | 2018-09-15 13:25 | PDOC.PN ---
- Subjective Encounter Start Date: 09/15/18 Encounter Start Time: 08:00 Pt seen for followup re; DM2. Feels well. - Objective Resuscitation Status - Order Detail: 09/14/18 05:40 Resuscitation Status Routine Resuscitation Status: FULL: Full Resuscitation Vital Signs & Weight: Vital Signs (12 hours) Temp Pulse Pulse Pulse Resp BP BP 09/15/18 11:30 98.0 F 64 16 09/15/18 09:14 65 66 134/71 115/69 09/15/18 07:57 97.8 F 61 16 09/15/18 07:44 09/15/18 07:41 60 12 09/15/18 03:58 98.1 F 67 16 BP BP Pulse Ox Pulse Ox Pulse Ox 09/15/18 11:30 123/65 97 09/15/18 09:14 94 L 95 09/15/18 07:57 134/63 97 09/15/18 07:44 95 09/15/18 07:41 09/15/18 03:58 118/60 936 H Weight Admit Weight 231 lb 14.821 oz Weight 226 lb 12.8 oz Most Recent Monitor Data Heart Rate from ECG 70 NIBP 108/61 NIBP BP-Mean 76 Respiration from ECG 20 SpO2 100 I&O: 09/14/18 09/15/18 09/16/18 06:59 06:59 06:59 Intake Total 610 2240 Output Total 700 2000 Balance -90 240 Result Diagrams: 09/12/18 05:25 09/12/18 05:25 Additional Labs: Accuchecks 09/15/18 09/15/18 09/14/18 11:12 05:50 20:43 POC Glucose 236 H 153 H 220 H 09/14/18 16:49 POC Glucose 163 H Phys Exam - Physical Examination Constitutional: NAD HEENT: moist MMs Neck: supple Respiratory: clear to auscultation bilateral Cardiovascular: RRR Gastrointestinal: soft Neurological: moves all 4 limbs Psychiatric: normal affect Dx/Plan (1) DM2 (diabetes mellitus, type 2) Status: Chronic Comment: continue glucotrol (2) HTN (hypertension) Code(s): I10 - ESSENTIAL (PRIMARY) HYPERTENSION Status: Chronic Comment: controlled (3) Thyroid mass Code(s): E07.9 - DISORDER OF THYROID, UNSPECIFIED Status: Acute Comment: ENT consult as outpt (4) STEMI (ST elevation myocardial infarction) Status: Acute Comment: s/p CABG (5) PAF (paroxysmal atrial fibrillation) Code(s): I48.0 - PAROXYSMAL ATRIAL FIBRILLATION Status: Acute Comment: on amiodarone - Plan * . Review of Systems - Review of Systems Cardiovascular: negative: chest pain, palpitations, orthopnea, paroxysmal nocturnal dyspnea, edema, light headedness Gastrointestinal: negative: Nausea, Vomiting, Abdominal Pain, Diarrhea, Constipation, Melena, Hematochezia - Medications/Allergies Allergies/Adverse Reactions: Allergies Allergy/AdvReac Type Severity Reaction Status Date / Time iodine Allergy Verified 09/08/18 01:59 Medications: Current Medications Acetaminophen (Tylenol) 650 mg PO Q6H PRN PRN Reason: Headache/Fever Or Mild Pain Hydrocodone Bitart/Acetaminophen (Hol[place] 5/325) 1 tab PO Q4H PRN PRN Reason: PAIN SCALE 1-5 Last Admin: 09/14/18 21:25 Dose: 1 tab Hydrocodone Bitart/Acetaminophen (Hol[place] 5/325) 2 tab PO Q4H PRN PRN Reason: PAIN SCALE 6-7 Last Admin: 09/12/18 20:05 Dose: 2 tab Al Hydroxide/Mg Hydroxide (Maalox) 30 ml PO Q4H PRN PRN Reason: Indigestion Albuterol/Ipratropium (Duoneb) 3 ml NEB [id number] PRN PRN Reason: SHORTNESS OF BREATH Last Admin: 09/14/18 07:21 Dose: 3 ml Amiodarone HCl (Cordarone) 400 mg PO TID [facility] Last Admin: 09/15/18 08:37 Dose: 400 mg Artificial Tears (Tears Naturale) 0 drop EA EYE PRN PRN PRN Reason: Dry Eyes Aspirin (Ecotrin) 325 mg PO DAILY [facility] Last Admin: 09/15/18 08:37 Dose: 325 mg Atorvastatin Calcium (Lipitor) 40 mg PO HS [facility] Last Admin: 09/14/18 21:24 Dose: 40 mg Bisacodyl (Dulcolax) 10 mg PO Q12H PRN PRN Reason: Constipation Bisacodyl (Dulcolax) 10 mg NV Q12H PRN PRN Reason: Constipation Budesonide (Pulmicort Neb Solution) 0.5 mg INH BID-RT [facility] Last Admin: 09/15/18 07:41 Dose: 0.5 mg Carvedilol (Coreg) 1.5625 mg PO BID [facility] Last Admin: 09/15/18 08:37 Dose: 1.5625 mg Dextrose/Water (Dextrose 50%) 25 gm SLOW IVP PRN PRN PRN Reason: PER HYPOGLYCEMIC PROTOCOL Diphenhydramine HCl (Benadryl) 25 mg PO Q6H PRN PRN Reason: Itching & Insomnia or Jonny Virgil Famotidine (Pepcid) 20 mg PO BID [facility] Last Admin: 09/15/18 08:37 Dose: 20 mg Fentanyl (Sublimaze) 25 mcg SLOW IVP Q2H PRN PRN Reason: .MODERATE PAIN Fentanyl (Sublimaze) 50 mcg SLOW IVP Q2H PRN PRN Reason: .SEVERE PAIN Furosemide (Lasix) 40 mg PO 0900,1400 [facility] Last Admin: 09/15/18 08:37 Dose: 40 mg Glipizide (Glucotrol) 10 mg PO BID-AC [facility] Last Admin: 09/15/18 08:36 Dose: 10 mg Glucagon (Glucagon) 1 mg SC PRN PRN PRN Reason: PER HYPOGLYCEMIC PROTOCOL Guaifenesin/Dextromethorphan (Robitussin Dm) 15 ml PO Q4H PRN PRN Reason: Cough Hydralazine HCl (Apresoline) 10 mg SLOW IVP Q6H PRN PRN Reason: To Maintain SBP< 140mmHG Dextrose/Water (D5w) 1,000 mls @ 0 mls/hr IV INF PRN PRN Reason: PRN HYPOGLYCEMIC PROTOCOL Insulin Human Regular (Humulin R) 0 units SC .MILD SLIDING PRN; Protocol PRN Reason: MILD SLIDING SCALE Last Admin: 09/15/18 11:34 Dose: 5 unit Insulin Human Regular (Humulin R) 0 units SC .BEDTIME SLIDING SC PRN; Protocol PRN Reason: BEDTIME SLIDING SCALE Last Admin: 09/14/18 21:27 Dose: 5 unit Mineral Oil (Fleet Mineral Oil) 133 ml NV DAILYPRN PRN PRN Reason: Constipation Nitroglycerin (Nitrostat) 0.4 mg SL Q5MIN PRN PRN Reason: Chest Pain Ondansetron HCl (Zofran) 4 mg IVP Q6H PRN PRN Reason: Nausea/Vomiting Last Admin: 09/12/18 12:18 Dose: 4 mg Potassium Chloride (Kcl) 20 meq IVPB PRN PRN PRN Reason: K level </= 4.0 Last Admin: 09/08/18 23:54 Dose: 20 meq Potassium Chloride (Klor-Con 10) 10 meq PO BID-[facility] Last Admin: 09/15/18 08:36 Dose: 10 meq Promethazine HCl (Phenergan) 6.25 mg IM Q4H PRN PRN Reason: Nausea/Vomiting Sertraline HCl (Zoloft) 50 mg PO DAILY [facility] Last Admin: 09/15/18 08:37 Dose: 50 mg Sodium Chloride (Flush - Normal Saline) 10 ml IVF Q12HR [facility] Last Admin: 09/15/18 08:38 Dose: 10 ml Sodium Chloride (Flush - Normal Saline) 10 ml IVF PRN PRN PRN Reason: Saline Flush Zolpidem Tartrate (Ambien) 5 mg PO HSPRN PRN PRN Reason: Insomnia
[2018-09-15 15:01] VITALS: BP 131/71; TEMP 98.5
--- NOTE | 2018-09-16 12:41 | EKG ---
Test Reason : Blood Pressure : / mmHG Vent. Rate : 082 BPM Atrial Rate : 300 BPM P-R Int : 000 ms QRS Dur : 082 ms QT Int : 332 ms P-R-T Axes : 000 057 114 degrees QTc Int : 387 ms Atrial flutter with variable A-V block Anteroseptal infarct , age undetermined Abnormal ECG Confirmed by ABRAHAM ODEN, LUIS ([id number]), editor trade journal MALU GONZALEZ ([id number]) on 09/16/2018 12:40:09 PM Referred By: Confirmed By:LUIS ROSARIO MD
== END 2018-09-15 16:29 | disposition home or self-care (01) | DRG 234 ==
LOC: ERS 19:55 → CCU 20:58 → 2NO 09-12 20:30
PROVIDERS: ADMIT Internal Medicine Cardiovascular Disease; ATTEND Internal Medicine Cardiovascular Disease
PROC: 021109W Bypass Coronary Artery, Two Arteries from Aorta with Autologous Venous Tissue, Open Approach (ICD-10-PCS; principal; 2018-09-08)
PROC: 4A023N7 Measurement of Cardiac Sampling and Pressure, Left Heart, Percutaneous Approach (ICD-10-PCS; 2018-09-08)
PROC: 0210093 Bypass Coronary Artery, One Artery from Coronary Artery with Autologous Venous Tissue, Open Approach (ICD-10-PCS; 2018-09-08)
PROC: 02L70ZK Occlusion of Left Atrial Appendage, Open Approach (ICD-10-PCS; 2018-09-08)
PROC: 06BQ4ZZ Excision of Left Saphenous Vein, Percutaneous Endoscopic Approach (ICD-10-PCS; 2018-09-08)
PROC: 5A1221Z Performance of Cardiac Output, Continuous (ICD-10-PCS; 2018-09-08)
PROC: B2111ZZ Fluoroscopy of Multiple Coronary Arteries using Low Osmolar Contrast (ICD-10-PCS; 2018-09-08)
PROC: B2151ZZ Fluoroscopy of Left Heart using Low Osmolar Contrast (ICD-10-PCS; 2018-09-08)
DX: I21.09 ST elevation (STEMI) myocardial infarction involving other coronary artery of anterior wall (principal); I48.92 Unspecified atrial flutter; T82.855A Stenosis of coronary artery stent, initial encounter; I25.10 Atherosclerotic heart disease of native coronary artery without angina pectoris; E11.65 Type 2 diabetes mellitus with hyperglycemia; E66.01 Morbid (severe) obesity due to excess calories; Z68.38 Body mass index [BMI] 38.0-38.9, adult; I48.0 Paroxysmal atrial fibrillation; J44.9 Chronic obstructive pulmonary disease, unspecified; I25.5 Ischemic cardiomyopathy; E78.5 Hyperlipidemia, unspecified; I10 Essential (primary) hypertension; F17.210 Nicotine dependence, cigarettes, uncomplicated; I25.2 Old myocardial infarction; Z91.14 Patient's other noncompliance with medication regimen; Z79.82 Long term (current) use of aspirin; E07.9 Disorder of thyroid, unspecified; Z91.041 Radiographic dye allergy status; Y83.1 Surgical operation with implant of artificial internal device as the cause of abnormal reaction of the patient, or of later complication, without mention of misadventure at the time of the procedure
CPT/HCPCS: 36415; 36416; 36430; 71045; 76536; 80048; 80061; 82550; 82805; 83690; 83880; 84439; 84443; 84481; 84484; 85025; 85347; 85610; 85730; 86850; 86900; 86901; 93005; 93010; 93458; 93798; 94002; 94003; 94150; 94640; 94760; 96374; 96375; 99152; 99153; C1769; J0282; J0670; J1100; J1644; J1815; J1825; J1885; J1940; J2001; J2150; J2250; J2260; J2270; J2440; J2550; J2704; J2720; J3010; J3370; J3475; J3480; J7050; J7070; J7620; J7626; P9045; P9047; Q9967; S0017; S0028

== ENCOUNTER 2018-10-16 00:48 | Observation (INO) | payer SELFPAY ==
[2018-10-16] MEDS ORDERED: Morphine 4 MG/ML VIAL ONE (03:07)
[2018-10-16] MEDS ORDERED: Zolpidem Tartrate 5 MG TAB PO PRN (03:43)
[2018-10-16] MEDS ORDERED: Ondansetron PF 4 MG/2 ML Vial IVP PRN (03:43)
[2018-10-16] MEDS ORDERED: Acetaminophen 325 MG TAB PO PRN (03:43)
[2018-10-16] MEDS ORDERED: HYDROcodone/Acetaminophen 5/325 mg Tablet PO PRN (03:43)
--- NOTE | 2018-10-16 04:22 | HP ---
CHIEF COMPLAINT: Chest pain. HISTORY OF PRESENT ILLNESS: This is a 58-year-old female with recent past medical history of coronary artery disease, had a CABG approximately 2 months ago in 08/2018. 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 Has not seen him, however, in the last six months. The patient states that she was having some chest pain in the left side of her chest radiating to her jaw and then radiating to her arm. The patient states that this pain feels similar to the last time and last time she had this pain. She was found to be needing coronary artery bypass grafting. The patient currently otherwise states that she feels stable. Denies any other associated symptoms. No alleviating or aggravating factors. The patient was seen and examined in the ER. Family at bedside. All questions answered. ALLERGIES: IODINE. REVIEW OF SYSTEMS: All systems reviewed. Pertinent positives in HPI, otherwise negative. PAST MEDICAL HISTORY: Positive for, 1. Diabetes mellitus. 2. Hypertension. 3. Coronary artery disease. 4. CABG in 08/2018. FAMILY HISTORY: Positive for hypertension and diabetes. SOCIAL HISTORY: Social drinker. Quit smoking in 08/2018 after her CABG. HOME MEDICATIONS: See SEP. PHYSICAL EXAMINATION: VITAL SIGNS: Blood pressure is 128/88, heart rate of 60, respiratory rate of 18, temperature of 98, O2 saturation 100% on 2 L nasal cannula. GENERAL: The patient is lying in bed. No acute discomfort. Obese. HEENT: Pupils are equal, round, and reactive to light and accommodation. Oral cavity moist and pink. NECK: Supple, mobile, and nontender. Thyroid appreciated. CARDIOVASCULAR: Regular rate and rhythm. S1, S2. Systolic ejection murmur slight appreciated. Surgical site is clear, dry, and intact. PULMONARY: Clear to auscultation bilaterally. No respiratory distress. ABDOMEN: Positive bowel sounds. Soft, nontender, and nondistended. EXTREMITIES: 2+ peripheral pulses noted. 1+ pitting edema in bilateral lower extremities noted. NEUROLOGICAL: Cranial nerves 2 through 12 intact. No loss of motor or sensory functions. LABORATORY DATA: Reviewed. First troponin was 0.036. ASSESSMENT: 1. Chest pain. 2. Coronary artery disease, status post coronary artery bypass graft in 08/2018. 3. Hypertension. 4. Diabetes mellitus type 2. 5. Hyperlipidemia. PLAN: At this point in time, we will admit the patient to observation service and internal medicine team. Consult Cardiology. Trend enzymes. Continue home medications. We will rule out ACS, if negative and no ACS present, can likely follow up with outpatient cardiology for an outpatient stress test. If troponins go up, we will treat as if this is a NSTEMI. The patient wishes to remain a full code. Case and plan discussed with the patient and her family at length. They understand and agreed with this plan. Job ID: [id number]
[2018-10-16 04:41] VITALS: BMI 39.6
[2018-10-16 06:35] LABS: Troponin I 0.024 ng/mL (< 0.028)
[2018-10-16 08:50] LABS: Troponin I 0.017 ng/mL (< 0.028)
[2018-10-16] MEDS: Furosemide 40 MG TAB PO SCH ×2 (08:50→13:46)
[2018-10-16] MEDS ORDERED: Amiodarone 200 MG TAB PO SCH ×2 (09:00)
[2018-10-16] MEDS ORDERED: Aspirin 325 mg Enteric Coated Tablet PO SCH (09:00)
[2018-10-16] MEDS ORDERED: Enoxaparin Sodium 40 MG/0.4 ML SYRINGE SC SCH (09:00)
--- NOTE | 2018-10-16 12:02 | NM ---
VENTILATION PERFUSION LUNG SCAN: INDICATIONS: Shortness of breath. Elevated D-dimer. Assess for pulmonary embolus. CORRELATION: Portable chest film from 10/15/2018, which showed no infiltrate or congestion. Borderline cardiomega ly. TECHNIQUE Ventilation scan performed, administering 9.7 millicuries Xenon 133, with inhalation. Lungs are imag ed both anteriorly and posteriorly. No ventilation defect identified. Mild symmetric air trapping noted. FINDINGS: Perfusion scan was performed, administered 6.3 millicuries of technetium labeled MAA IV. The lungs w ere imaged in 8 projections. There is normal perfusion bilaterally. No perfusion defect identified. IMPRESSION: Normal ventilation perfusion scan. POS: [facility]
[2018-10-16 15:58] VITALS: BP 145/60; TEMP 98.2
[2018-10-16 16:51] LABS: Troponin I 0.016 ng/mL (< 0.028)
--- NOTE | 2018-10-16 19:29 | CON ---
DATE OF CONSULTATION: 10/16/2018 HISTORY OF PRESENT ILLNESS: Azalea George is a 58-year-old white female whom I first evaluated on September 07, 2018. Six years prior to that, she had a myocardial infarction and had a stent placed in her heart at [facility]. She apparently did well until the night of admission at 6:30 p.m., she began to have substernal chest pressure associated with nausea and diaphoresis. She went to the [facility], had changes consistent with an old anteroseptal infarction, but did have [address]-segment elevation in V3 and in lead 3. I was concerned about the delayed transportation time, and so TNKase was given. Also, it was not mentioned to me at that time that she had significant iodine allergy and so she could not have gone to the lift slab operator emergently anyway. On arrival here, she was totally pain-free on intravenous heparin and intravenous nitroglycerin. She admitted to not taking any of her cardiac medications except baby aspirin. She ran out of insurance, so was not taking any medication for her diabetes. However, she continued to smoke. She was premedicated with prednisone, Benadryl, and Pepcid. The following day, she underwent cardiac catheterization. There was a 99% mid LAD in-stent restenosis. The distal LAD filled from the right. There was a 70% mid circumflex lesion and a 70% first obtuse marginal lesion. The right coronary artery had a 90% mid stenosis, 70% right posterior descending, and 70% right posterolateral. Left ventriculogram revealed anterior and apical akinesis with moderate global hypokinesis with ejection fraction of 25% to 30%. She was in atrial fibrillation when she initially presented and was placed on intravenous amiodarone. She was taken to the operating room on emergency basis, underwent CABG x3 with vein graft to the diagonal, obtuse marginal, and to the right posterior descending artery. The anterior wall in the distribution of the LAD was infarcted and scarred. Also, she underwent left atrial appendage ligation with her history of atrial fibrillation when she presented. She was placed on tapering doses of p.o. amiodarone after she converted to sinus rhythm. She was told on a daily basis that she must discontinue smoking and needs to take her medicines. Arrangements were made for a LifeVest at the time of discharge, and apparently she wore this for 2 weeks, but found she could not continue to afford it and is no longer wearing the LifeVest. The patient had been doing well, walking 8 minutes on the treadmill without chest pain or shortness of breath. Then, yesterday at rest, she had a tightness in a small area of the left side of her chest around T10 or T11. She also developed some left arm discomfort. The total duration of her continuous pain was approximately 10 hours. However, cardiac enzymes were fairly unremarkable. PAST MEDICAL HISTORY: Diabetes, hypercholesterolemia, and hypertension. MEDICATIONS: At the time of discharge; 1. Aspirin 325 daily. 2. Amiodarone 400 mg t.i.d. for 2 weeks and then 200 mg b.i.d. after 3 total months of therapy. 3. Lipitor 40 daily. 4. Carvedilol 3.125 one-half tablet b.i.d. 5. Furosemide 40 daily. 6. Potassium 10 mEq b.i.d. 7. Glucotrol 10 mg b.i.d. ALLERGIES: IODINE CAUSES LARYNGOSPASM AND GENERALIZED BODY SWELLING. SHE THINKS THAT SHE WAS PREMEDICATED PRIOR TO HER CATHETERIZATION 6 OR 7 YEARS AGO. PAST SURGICAL HISTORY: Removal of cyst from her groin and CABG. SOCIAL HISTORY: She smoked one pack per day until CABG. She states she does not smoke any longer. No alcohol intake. FAMILY HISTORY: Mother had myocardial infarction. REVIEW OF SYSTEMS: A 12-point review of systems is otherwise unremarkable. PHYSICAL EXAMINATION: VITAL SIGNS: Blood pressure 145/60, pulse is 62. HEENT: PERRL. NECK: Supple. CHEST: Clear. CARDIAC: S1 and S2 normal without any S3, S4, or murmurs. ABDOMEN: Normal bowel sounds without tenderness or organomegaly. The abdomen is obese. EXTREMITIES: Revealed no clubbing, cyanosis, or edema. NEUROLOGIC: Grossly intact. SKIN: Warm and dry. MUSCULOSKELETAL: Revealed no palpable left chest tenderness. LABORATORY DATA: EKG revealed normal sinus rhythm with poor R-wave progression consistent with anterior infarction, nonspecific ST and T-wave changes. CBC is unremarkable. D-dimer 2.05. She underwent ventilation-perfusion scan which revealed low probability for pulmonary embolism. Sodium 139, potassium 4.4, chloride 106, carbon dioxide 26, BUN 21, creatinine 0.87, glucose 218. BNP 261.7. Cardiac enzymes were negative. IMPRESSION: 1. Noncardiac left anterior axillary pain as well as left arm pain. She had 12 hours of continuous pain with negative cardiac enzymes. 2. Status post coronary artery bypass graft x3. The left anterior descending artery distribution had a large infarction and was felt not to be viable tissue for bypass. She also had left atrial appendage ligation. 3. Ischemic cardiomyopathy with ejection fraction of 25% to 30%. LifeVest was arranged on last admission. However, she has decided she cannot afford that. 4. Previous anteroseptal myocardial infarction with Q-waves in anterior leads, left anterior descending artery stent placement at [facility] in [place]. She then presented in August [address]-segment elevation myocardial infarction and appeared to be reperfused with TNKase. 5. Atrial fibrillation in August 2018 when she presented, which converted to normal sinus rhythm after coronary artery bypass grafting. She went back into atrial fibrillation on September 12, 2018. Amiodarone was increased from 400 mg b.i.d. to 400 mg t.i.d. and then she went back to sinus rhythm. 6. Hypercholesterolemia. 7. Diabetes. 8. Smoker. 9. Positive family history. 10. Noncompliance with medications. 11. Iodine allergy. PLAN: The patient had 8 to 10 hours of continuous chest discomfort with negative cardiac enzymes. I doubt that this is cardiac related. She did not have any pleuritic component to the pain and her sedimentation rate is not significantly elevated. I doubt this represents a postpericardiotomy syndrome with pain thus far removed from bypass. I felt this is although a musculoskeletal pain, and at the present time, I do not feel any further cardiac evaluation is warranted. Job ID: [id number]
[2018-10-16] MEDS ORDERED: Atorvastatin Calcium 40 MG TAB PO SCH (21:00)
--- NOTE | 2018-10-16 23:58 | DIS ---
DATE OF ADMISSION: 10/16/2018 DATE OF DISCHARGE: 10/16/2018 ALLERGIES: IODINE. CHIEF COMPLAINT: Chest pain. FINAL DIAGNOSES: 1. Chest pain, acute coronary syndrome ruled out. 2. Coronary artery disease, status post recent coronary artery bypass graft in August 2018. 3. Ischemic cardiomyopathy, noncompliant with LifeVest. 4. Hypertension. 5. Diabetes mellitus. LABORATORY DATA: Troponin 0.021, 0.024, 0.017, and 0.016 respectively. BNP 261. WBC 10.7, RBC 4.5, hemoglobin 13.3, hematocrit 40.5, MCV 89, platelets 288. Sodium 139, potassium 4.4, anion gap 15, BUN 21, creatinine 0.87, glucose 218. AST, ALT, and alkaline phosphatase are all within normal limits. Albumin 3.5. IMAGING RESULTS: Pulmonary perfusion imaging showed normal ventilation perfusion scan. No perfusion defect identified. CONSULTATIONS: Dr. Mancia, Cardiology. VITAL SIGNS: Blood pressure 145/60, pulse is 62, O2 sats 95% on room air, temperature 98.2. HOSPITAL COURSE: The patient is a 58-year-old female with past medical history significant for recent CABG with Dr. Gruber in August 2018, ischemic cardiomyopathy, hypertension, and diabetes mellitus, along with paroxysmal atrial fibrillation, who presented to the hospital with complaints of chest pain. The patient reported chest pain that she initially described as sharp, but then radiated up into the jaw and the left arm. Because of her history, she did present to the ER for further workup and treatment. Of note, the patient has been participating in cardiac rehab. She has had no exertional angina throughout her sessions. She states that she has been doing well after discharge up until early this morning. ACS has been ruled out in this patient, and her chest pain has resolved. Her D-dimer was elevated and she had a V/Q scan, which was negative for any mismatch or evidence of PE. She was seen in consultation with Dr. Mancia of Cardiology, who recommended increasing carvedilol to 3.125 mg b.i.d. and decreasing her amiodarone to 200 mg daily. He did clear the patient for discharge. She denies any further chest pain since her admission. She has ambulated around the room without issue. PHYSICAL EXAMINATION: GENERAL: The patient is awake and alert, oriented x3, in no acute distress, resting comfortably. HEENT: Atraumatic and normocephalic. Eye movement intact. NECK: Supple. No JVD. No carotid bruits. No lymphadenopathy. RESPIRATORY: Regular respiratory rate and pattern. Clear to auscultation bilaterally. No rhonchi, wheezes, or crackles noted. CV: S1 and S2. Regular rate and rhythm. No appreciable murmurs, rubs or gallops. GI: Soft and nontender. Normal bowel sounds. PERIPHERAL VASCULAR: No lower extremity pitting edema. +2 DP pulses bilaterally. MUSCULOSKELETAL: No joint effusion or swelling. NEUROLOGIC: Cranial nerves II through XII grossly intact. The patient is nonfocal. SKIN: Normal, dry. No rashes. The patient does have a small area of wound dehiscence at the distal end of her sternotomy. CONDITION AT DISCHARGE: Stable. DISCHARGE MEDICATIONS: 1. Coreg 3.125 mg b.i.d. 2. Amiodarone 200 mg daily. 3. Sertraline 25 mg one tablet p.o. daily. 4. Melatonin 3 mg p.o. at bedtime p.r.n. 5. Atorvastatin 40 mg one tablet p.o. at bedtime. 6. Glipizide 5 mg tablet, 10 mg p.o. b.i.d. DISCHARGE DISPOSITION: Home. PLAN: As mentioned, the patient's cardiac medications were titrated. Her carvedilol was titrated up, and her amiodarone was decreased to 200 mg once a day. The patient has remained in sinus rhythm since her stay. Dr. Gruber was also notified of the patient's presence and he did come by to reassess the patient's sternotomy wound, which he has been following closely. At this time, he has recommended gentle cleansing of the area and for it to remain clean and dry. He will continue close followup. She will also continue cardiac rehab and follow up with Dr. Mancia as an outpatient. Care discussed with Dr. Gustafson who agrees with the discharge plan as above. Job ID: [id number]
[2018-10-17] MEDS ORDERED: Carvedilol 3.125 MG TAB PO SCH (08:00)
[2018-10-17] MEDS ORDERED: Amiodarone 200 MG TAB PO SCH (09:00)
--- NOTE | 2018-10-21 22:05 | EKG ---
Test Reason : Blood Pressure : / mmHG Vent. Rate : 065 BPM Atrial Rate : 065 BPM P-R Int : 212 ms QRS Dur : 090 ms QT Int : 432 ms P-R-T Axes : 018 013 109 degrees QTc Int : 449 ms Sinus rhythm with 1st degree A-V block Anterior infarct , age undetermined T wave abnormality, consider lateral ischemia Abnormal ECG Confirmed by BRYAN THURMAN ([id number]), associate entertainment editor MALU GONZALEZ ([id number]) on 10/21/2018 10:04:31 PM Referred By: Confirmed By:BRYAN THURMAN
== END 2018-10-16 18:01 | disposition home or self-care (01) ==
LOC: ERS 00:48 → 2SW 03:34
PROVIDERS: ADMIT Internal Medicine; ATTEND Internal Medicine
DX: R07.9 Chest pain, unspecified (principal); I25.5 Ischemic cardiomyopathy; I10 Essential (primary) hypertension; E11.9 Type 2 diabetes mellitus without complications; I25.10 Atherosclerotic heart disease of native coronary artery without angina pectoris; I48.0 Paroxysmal atrial fibrillation; I25.2 Old myocardial infarction; Z95.1 Presence of aortocoronary bypass graft; Z87.891 Personal history of nicotine dependence; E78.00 Pure hypercholesterolemia, unspecified; Z91.14 Patient's other noncompliance with medication regimen; Z91.09 Other allergy status, other than to drugs and biological substances; Z79.82 Long term (current) use of aspirin; Z79.84 Long term (current) use of oral hypoglycemic drugs; Z79.899 Other long term (current) drug therapy; Z98.890 Other specified postprocedural states
CPT/HCPCS: 36415; 78582; 83880; 84484; 85379; 85652; 93005; 96372; 96374; A9540; A9558; G0378; J1650; J2270

== ENCOUNTER 2018-11-04 16:43 | Emergency (ER) | payer SELFPAY ==
[~2018-11-04 16:43] MED LIST: ISOVUE-370 76%-LOCM 1 ML ONE
[2018-11-04 17:02] LABS: #Basophils 0.1 thou/uL (0.0-0.2); #Eosinphils 0.2 thou/uL (0.0-0.7); #Lymphocytes 2.7 thou/uL (1.20-3.40); #Monocytes 0.6 thou/uL (0.11-0.59); %Basophils 1.2 % (0.0-1.0); %Eosinophils 2.2 % (0.0-10.0); %Lymphocytes 31.6 % (21.0-51.0); %Monocytes 6.8 % (0.0-10.0); %Neutrophils 58.2 % (42.0-75.0); Hemoglobin 13.2 g/dL (12.0-16.0); Mean Corpuscular HGB CONC 33.7 g/dL (32.0-36.0); Mean Corpuscular Hemoglobin 30.1 pg (27.0-31.0); Mean Corpuscular Volume 89.2 fL (78.0-98.0); Mean Platelet Volume 7.3 fL (7.4-10.4); Platelet Count 311 thou/uL (130-400); RBC Distribution Width 12.9 % (11.5-14.5); Red Blood Cell (RBC) Count 4.37 mill/uL (4.20-5.40); White Blood Cell (WBC) Count 8.5 thou/uL (4.8-10.8)
--- NOTE | 2018-11-04 17:17 | RAD ---
Chest one view HISTORY: Chest pain. COMPARISON: 10/15/2018. FINDINGS: Cardiac silhouette is upper limits of normal in size. Pulmonary vasculature also upper limi ts of normal. Mediastinum is midline with postoperative changes. Mild diffuse prominence of the interstitium of the lower lobes is unchanged. No lobar consolidation or evidence of pneumothorax. Car diac monitor leads overlie the chest. IMPRESSION: Chronic type findings are stable. No active cardiopulmonary abnormalities are demonstrate d.
[2018-11-04 17:24] LABS: ALT (SGPT) 21 U/L (8-55); AST (SGOT) 19 U/L (5-34); Albumin 3.4 g/dL (3.5-5.0); Alkaline Phosphatase 128 U/L (40-150); Anion Gap 13 mmol/L (10-20); BUN (Urea Nitrogen) 18 mg/dL (9.8-20.1); Bilirubin, Total 0.3 mg/dL (0.2-1.2); CK (CPK) 55 U/L (29-168); Calc. Creatinine Clearance 0 mL/min (70-130); Calcium 9.2 mg/dL (7.8-10.44); Carbon Dioxide 21 mmol/L (22-29); Chloride 107 mmol/L (98-107); Estimated GFR-MDRD 73; Globulin 3.8 g/dL (2.4-3.5); Glucose 147 mg/dL (70-105); Potassium 4.3 mmol/L (3.5-5.1); Protein, Total 7.2 g/dL (6.0-8.3); Sodium 137 mmol/L (136-145)
[2018-11-04 17:47] LABS: CKMB 1.7 ng/mL (0-6.6)
[2018-11-04] MEDS ORDERED: Aspirin Chewable 81 MG TAB ONE (18:18)
[2018-11-04] MEDS ORDERED: methylPREDNISolone Sod Succ/PF 125 MG/2 ML VIAL ONE (18:31)
[2018-11-04] MEDS ORDERED: Famotidine/PF 20 mg/2ml Vial ONE (18:31)
[2018-11-04] MEDS ORDERED: diphenhydrAMINE 50 MG/ML VIAL ONE (18:31)
--- NOTE | 2018-11-04 19:32 | CT ---
CT arteriogram chest with IV contrast and 3-D MIP imaging HISTORY: Chest pain. Dyspnea. FINDINGS: There is good contrast opacification pulmonary arteries and thoracic aorta with normal bran geovanny great vessels. Minimal atelectasis at the lung bases. No pneumothorax. Calcification within the aortic arch and coronary arteries. The oval 3.0 cm soft tissue density lesion at the posterior mi dline dermis/subcutaneous junction likely represents a sebaceous cyst. IMPRESSION: No CT evidence of pulmonary embolus. Atherosclerosis.
[2018-11-04 20:16] LABS: Troponin I 0.032 ng/mL (< 0.028)
== END 2018-11-04 20:50 | disposition home or self-care (01) ==
LOC: ERS 16:43
DX: R07.89 Other chest pain (principal); I25.10 Atherosclerotic heart disease of native coronary artery without angina pectoris; E11.9 Type 2 diabetes mellitus without complications; I10 Essential (primary) hypertension; F32.9 Major depressive disorder, single episode, unspecified; Z87.891 Personal history of nicotine dependence; Z79.82 Long term (current) use of aspirin; Z79.899 Other long term (current) drug therapy
CPT/HCPCS: 36415; 71045; 71275; 80053; 82550; 82553; 84484; 85025; 85379; 93005; 94760; 96361; 96374; 96375; J1200; J2930; Q9966; S0028

== ENCOUNTER 2019-04-17 12:00 | Observation (INO) | payer OTHER, SELFPAY ==
--- NOTE | 2019-04-17 12:58 | RAD ---
XR Chest 1 View Portable History: Nausea. Chest pain Comparison: Radiograph November 04, 2018 Findings: Heart size is enlarged. Small effusions. Moderate pulmonary venous congestion. No pneumotho rax. No acute osseous abnormality. Impression: Findings of congestive heart failure.
[2019-04-17 13:20] LABS: #Basophils 0.1 thou/uL (0.0-0.2); #Eosinphils 0.2 thou/uL (0.0-0.7); #Lymphocytes 2.3 thou/uL (1.20-3.40); #Monocytes 0.7 thou/uL (0.11-0.59); #Neutrophils 5.2 thou/uL (1.40-6.50); %Eosinophils 2.2 % (0.0-10.0); %Lymphocytes 27.2 % (21.0-51.0); %Neutrophils 61.6 % (42.0-75.0); Hemoglobin 11.7 g/dL (12.0-16.0); Mean Corpuscular HGB CONC 32.9 g/dL (32.0-36.0); Mean Corpuscular Hemoglobin 29.2 pg (27.0-31.0); Mean Corpuscular Volume 88.6 fL (78.0-98.0); Mean Platelet Volume 7.5 fL (7.4-10.4); Platelet Count 267 thou/uL (130-400); RBC Distribution Width 12.6 % (11.5-14.5); Red Blood Cell (RBC) Count 4.02 mill/uL (4.20-5.40); White Blood Cell (WBC) Count 8.4 thou/uL (4.8-10.8)
[2019-04-17 13:32] LABS: ALT (SGPT) 12 U/L (8-55); AST (SGOT) 13 U/L (5-34); Albumin 3.2 g/dL (3.5-5.0); Alkaline Phosphatase 98 U/L (40-150); Anion Gap 12 mmol/L (10-20); BUN (Urea Nitrogen) 15 mg/dL (9.8-20.1); Bilirubin, Total Less than 0.2 mg/dL (0.2-1.2); Calc. Creatinine Clearance 0 mL/min (70-130); Calcium 9.2 mg/dL (7.8-10.44); Carbon Dioxide 22 mmol/L (22-29); Chloride 104 mmol/L (98-107); Estimated GFR-MDRD 63; Globulin 3.3 g/dL (2.4-3.5); Glucose 237 mg/dL (70-105); Potassium 4.1 mmol/L (3.5-5.1); Protein, Total 6.5 g/dL (6.0-8.3); Sodium 134 mmol/L (136-145)
[2019-04-17] MEDS ORDERED: Nitroglycerin 2% Ointment 1 INCH/1 GM Packet ONE (13:46)
[2019-04-17] MEDS ORDERED: Ondansetron ODT 4 MG TAB PO PRN (15:42)
[2019-04-17] MEDS ORDERED: Ondansetron PF 4 MG/2 ML Vial IVP PRN (15:42)
[2019-04-17] MEDS ORDERED: Acetaminophen 650 MG Suppository PR PRN (15:42)
[2019-04-17] MEDS ORDERED: Dextrose 50% Abboject 50 ML SYRINGE SLOW IVP PRN (15:47)
[2019-04-17] MEDS ORDERED: HumaLOG 300 UNITS/3 ML VIAL SC PRN (15:47)
[2019-04-17] MEDS ORDERED: Dextrose 5% in Water 1,000 ML IV PRN (15:47)
[2019-04-17] MEDS ORDERED: Lidocaine 2% Viscous Solution 10 ML, Aluminum & Magnesium Hydroxide 30 ML SSW SCH (16:00)
--- NOTE | 2019-04-17 16:15 | CT ---
CT Abdomen Pelvis WO Con: 04/17/2019 3:44 PM HISTORY: Right-sided abdominal pain COMPARISON: None. TECHNIQUE: Multiple contiguous axial images were obtained and a CT of the abdomen and pelvis without IV contrast . Coronal and sagittal reformats were performed. FINDINGS: This examination is limited for the evaluation of solid organs and vascular structures due to the lac k of intravenous contrast. Lower Chest: within normal limits. Abdomen: Liver: within normal limits. Bile Ducts: Normal caliber. Gallbladder: No calcified gallstones. Normal caliber wall. Pancreas: within normal limits. Spleen: within normal limits. Adrenals: within normal limits. Kidneys: Nonobstructing 8 mm calcification. Pelvis: Reproductive Organs: Status post hysterectomy. Ureters: within normal limits. Bladder: within normal limits. Bowel: Normal caliber. Mesenteric Lymph Nodes: No enlarged mesenteric lymph nodes. Peritoneum: No ascites or free air, no fluid collection. Vessels: Atherosclerotic calcifications in the aorta Retroperitoneum: within normal limits. Abdominal Wall: within normal limits. Bones: Degenerative changes in the spine. IMPRESSION: Nonobstructing 8 mm right renal calcification
[2019-04-17 16:25] LABS: Magnesium 2.1 mg/dL (1.6-2.6)
[2019-04-17 16:34] LABS: Troponin I 0.019 ng/mL (< 0.028)
[2019-04-17 17:17] VITALS: BMI 44.1
[2019-04-17] MEDS ORDERED: Nystatin Powder 15 GM BOT TOP PRN (18:12)
[2019-04-17] MEDS ORDERED: Melatonin 3 MG TAB PO PRN (18:13)
[2019-04-17 18:44] LABS: Bacteria/HPF None Seen HPF (None Seen); Bilirubin Negative (Negative); Blood, Urine Negative (Negative); Clarity Clear (Clear); Glucose, Urine (Dipstick) Normal (Negative); Leukocyte Negative Leu/uL (Negative); Nitrite Negative (Negative); Protein, Urine (Dipstick) 50 mg/dL (Neg-Trace); Squamous Epithelial 0-3 HPF (0-3); Urobilinogen Normal mg/dL (Less than 2); WBC/HPF 0-3 HPF (0-3)
[2019-04-17 18:48] LABS: Urine Culture Reflex No No
[2019-04-17 19:41] LABS: Troponin I 0.024 ng/mL (< 0.028)
[2019-04-17] MEDS ORDERED: Famotidine/PF 20 mg/2ml Vial SLOW IVP SCH (21:00)
[2019-04-17] MEDS ORDERED: Atorvastatin Calcium 40 MG TAB PO SCH (21:00)
[2019-04-17] MEDS: risperiDONE 3 MG TAB PO SCH (21:08)
[2019-04-17] MEDS: Acetaminophen 325 MG TAB PO PRN (21:40)
[2019-04-17] MEDS ORDERED: Carvedilol 3.125 MG TAB PO SCH (21:45)
--- NOTE | 2019-04-17 21:46 | PDOC.HHP ---
Hospitalist HPI - History of Present Illness Chest pain History of Present Illness: Time of assessment: 14:00 Ms. George is a pleasant 58 year old woman who presents complaining of chest pain which has been intermittent since this morning. She states the pain has been in the center of her chest and reports having pain between her shoulder blades, however this has now improved. She tried taking aspirin at home this morning. It did not seem to help with her pain, she opted to come in to the ED. Her pain on arrival was a 7/10 in severity. Reports having lower leg swelling for the last several days. States she saw her primary care physician who has been making adjustments to her medications due to her glucose being uncontrolled. Also recently increased her Lasix from 20 daily to 40 mg once daily. She reports having nausea but no vomiting. Denies any shortness of breath. No recent cough or hemoptysis. Recently had a CABGx3 in 08/2018. States the pain is similar to what she had at that time. Reports having chronic right sided abdominal pain which she states is due to her cholelithiasis. Was recommended cholecystectomy in the past but states she didnt have it due to not having insurance. ED Course: She was given nitro-bid in the ED with improvement in her pain. Reports having mild discomfort at present. CXR done showed findings of congestive heart failure. Initial troponin negative. BNP in 500s. Hospitalist ROS - Review of Systems Constitutional: denies: fever, chills, sweats, weakness, malaise, other Eyes: denies: pain, vision change, conjunctivae inflammation, eyelid inflammation, redness, other ENT: denies: ear pain, ear discharge, nose pain, nose discharge, nose congestion , mouth pain, mouth swelling, throat pain, throat swelling, other Respiratory: reports: cough (chronic cough, dry). denies: dry, shortness of breath, hemoptysis, SOB with excertion, pleuritic pain, sputum, wheezing, other Cardiovascular: reports: chest pain. denies: palpitations, orthopnea, paroxysmal noc. dyspnea, edema, light headedness, other Gastrointestinal: reports: nausea, abdominal pain (chronic). denies: vomiting, diarrhea, constipation, melena, hematochezia, other Genitourinary: reports: dysuria (Due to being on a diuretic.). denies: frequency, incontinence, hematuria, retention, other Musculoskeletal: reports: back pain. denies: neck pain, shoulder pain, arm pain , hand pain, leg pain, foot pain, other Skin: denies: rash, lesions, derek, bruising, other Neurological: denies: weakness, numbness, incoordination, change in speech, confusion, seizures, other - Medication Medications: Active Medications Generic Name Dose Route Start Last Admin Trade Name Freq PRN Reason Stop Dose Admin Acetaminophen 650 mg 04/17/19 15:42 04/17/19 21:40 Tylenol PO 650 mg Q4H PRN Administration Headache/Fever/Mild Pain (1-3) Atorvastatin Calcium 40 mg 04/17/19 21:00 04/17/19 21:08 Lipitor PO 40 mg HS RICKY Administration Carvedilol 3.125 mg 04/17/19 21:45 04/17/19 21:41 Coreg PO 04/17/19 23:45 3.125 mg NOW RICKY Administration Risperidone 1.5 mg 04/17/19 21:00 04/17/19 21:08 Risperidone PO 1.5 mg BID RICKY Administration Sodium Chloride 10 ml 04/17/19 15:42 04/17/19 21:09 Flush - Normal Saline IVF 10 ml Q12HR PRN Administration Saline Flush Hospitalist History - Past Medical History Source: patient, family Cardiac: reports: CAD (s/p angioplasty), HTN Endocrine: reports: Diabetes - Past Surgical History Past Surgical History: reports: CABG (cardiac stents), Other (Cyst removed from groin.) - Social History Smoking Status: Current every day smoker Alcohol: reports: None Drugs: reports: none Living Situation: With Family Activity level: independent ambulation - Exam General Appearance: NAD, awake alert Eye: PERRL, anicteric sclera ENT: normocephalic atraumatic, no oropharyngeal lesions Neck: supple, no thyromegaly, no lymphadenopathy Heart: RRR, no murmur Respiratory: CTAB, no wheezes, no rales, no ronchi, normal chest expansion, no tachypnea Gastrointestinal: soft (obese), no palpable masses, no rigidity, tender to palpation (to right abdomen) Extremities - other findings: No edema, however general lower leg swelling Skin: normal turgor, no lesions, no rashes Neurological: cranial nerve grossly intact, normal sensation to touch, no weakness, no focal deficits, no new deficit Musculoskeletal: normal tone, normal strength, no muscle wasting Psychiatric: normal affect, normal behavior, A&O x 3 Hospitalist Results - Labs Result Diagrams: 04/18/19 04:46 04/18/19 04:46 Lab results: WBC 8.4 thou/uL (4.8-10.8) 04/17/19 13:07 Hgb 11.7 g/dL (12.0-16.0) L 04/17/19 13:07 Hct 35.6 % (36.0-47.0) L 04/17/19 13:07 MCV 88.6 fL (78.0-98.0) 04/17/19 13:07 Plt Count 267 thou/uL (130-400) 04/17/19 13:07 Neutrophils % 61.6 % (42.0-75.0) 04/17/19 13:07 Sodium 134 mmol/L (136-145) L 04/17/19 13:07 Potassium 4.1 mmol/L (3.5-5.1) 04/17/19 13:07 Chloride 104 mmol/L (98-107) 04/17/19 13:07 Carbon Dioxide 22 mmol/L (22-29) 04/17/19 13:07 BUN 15 mg/dL (9.8-20.1) 04/17/19 13:07 Creatinine 0.91 mg/dL (0.6-1.1) 04/17/19 13:07 Glucose 237 mg/dL (70-105) H 04/17/19 13:07 Calcium 9.2 mg/dL (7.8-10.44) 04/17/19 13:07 Total Bilirubin Less than 0.2 mg/dL (0.2-1.2) L 04/17/19 13:07 AST 13 U/L (5-34) 04/17/19 13:07 ALT 12 U/L (8-55) 04/17/19 13:07 Alkaline Phosphatase 98 U/L (40-150) 04/17/19 13:07 Troponin I 0.024 ng/mL (< 0.028) 04/17/19 19:12 B-Natriuretic Peptide 203.6 pg/mL (0-100) H 04/17/19 13:07 Serum Total Protein 6.5 g/dL (6.0-8.3) 04/17/19 13:07 Albumin 3.2 g/dL (3.5-5.0) L 04/17/19 13:07 Lipase 17 U/L (8-78) 04/17/19 15:56 Urine Ketones Negative mg/dL (Negative) 04/17/19 18:04 Urine Blood Negative (Negative) 04/17/19 18:04 Urine Nitrite Negative (Negative) 04/17/19 18:04 Ur Leukocyte Esterase Negative Jarvis/uL (Negative) 04/17/19 18:04 Urine RBC 4-6 HPF (0-3) A 04/17/19 18:04 Urine WBC 0-3 HPF (0-3) 04/17/19 18:04 Ur Squamous Epith Cells 0-3 HPF (0-3) 04/17/19 18:04 Urine Bacteria None Seen HPF (None Seen) 04/17/19 18:04 - Radiology Interpretation Chest x-ray Status: report reviewed by me Hospitalist H&P A/P - Problem (1) Chest pain Code(s): R07.9 - CHEST PAIN, UNSPECIFIED Status: Acute (2) CHF exacerbation Code(s): I50.9 - HEART FAILURE, UNSPECIFIED Status: Acute (3) Abdominal pain Code(s): R10.9 - UNSPECIFIED ABDOMINAL PAIN Status: Acute (4) DM2 (diabetes mellitus, type 2) Status: Chronic (5) HTN (hypertension) Code(s): I10 - ESSENTIAL (PRIMARY) HYPERTENSION Status: Chronic Assessment and Plan: - Plan Plan: Lasix 40 mg IV, continue daily. Fluid restriction, by mouth. Continue to trend troponins. Recent CABG. Consult placed to Cardiology. NPO at midnight. Further recommendations as per Cardiology. Additional labs including d-dimer and Mg+. Very tender on exam in the right abdomen, chronic. CT A/P, add-on lipase. LFTs unremarkable, however very tender. Monitor BP and resume home meds once verified. Initiate insulin sliding scale and monitor glucose. CODE STATUS: FULL. Surrogate decision maker: Nel Brooklyn, her partner.
[2019-04-17] MEDS ORDERED: Furosemide 40 MG/4 ML VIAL SLOW IVP SCH (22:00)
[2019-04-18] MEDS ORDERED: hydrALAZINE 20 MG/ML VIAL SLOW IVP PRN (00:37)
[2019-04-18 04:57] LABS: #Basophils 0.1 thou/uL (0.0-0.2); #Eosinphils 0.2 thou/uL (0.0-0.7); #Lymphocytes 2.1 thou/uL (1.20-3.40); #Monocytes 0.7 thou/uL (0.11-0.59); #Neutrophils 4.8 thou/uL (1.40-6.50); %Basophils 0.9 % (0.0-1.0); %Eosinophils 3.1 % (0.0-10.0); %Lymphocytes 26.8 % (21.0-51.0); %Monocytes 8.4 % (0.0-10.0); %Neutrophils 60.9 % (42.0-75.0); Hemoglobin 12.2 g/dL (12.0-16.0); Mean Corpuscular HGB CONC 32.2 g/dL (32.0-36.0); Mean Corpuscular Hemoglobin 28.4 pg (27.0-31.0); Mean Platelet Volume 7.6 fL (7.4-10.4); Platelet Count 241 thou/uL (130-400); RBC Distribution Width 12.5 % (11.5-14.5); Red Blood Cell (RBC) Count 4.28 mill/uL (4.20-5.40); White Blood Cell (WBC) Count 7.8 thou/uL (4.8-10.8)
[2019-04-18 05:15] LABS: Anion Gap 15 mmol/L (10-20); BUN (Urea Nitrogen) 17 mg/dL (9.8-20.1); Calc. Creatinine Clearance 115 mL/min (70-130); Carbon Dioxide 21 mmol/L (22-29); Cardiac Risk 2.8 (Less than 4.5); Chloride 105 mmol/L (98-107); Cholesterol 160 mg/dl (< 200 Desired); Estimated GFR-MDRD 59; Glucose 172 mg/dL (70-105); HDL Cholesterol 57 mg/dL (>60 Neg Risk); LDL Cholesterol, Calculated 73 mg/dL; Potassium 4.1 mmol/L (3.5-5.1); Sodium 137 mmol/L (136-145); Triglycerides 151 mg/dL (Less than 150)
[2019-04-18 07:58] VITALS: TEMP 98.5
[2019-04-18] MEDS: Carvedilol 3.125 MG TAB PO SCH ×2 (08:53→17:34)
[2019-04-18] MEDS: Acetaminophen 325 MG TAB PO PRN (08:53)
[2019-04-18] MEDS: risperiDONE 3 MG TAB PO SCH (08:55)
[2019-04-18] MEDS ORDERED: FLUoxetine HCl 20 MG CAP PO SCH (09:00)
[2019-04-18] MEDS ORDERED: Famotidine 20 MG TAB PO SCH (09:00)
[2019-04-18] MEDS ORDERED: Amiodarone 200 MG TAB PO SCH (09:00)
[2019-04-18] MEDS ORDERED: Furosemide 20 MG TAB PO SCH (09:00)
[2019-04-18] MEDS ORDERED: Aspirin 325 mg Enteric Coated Tablet PO SCH (09:00)
[2019-04-18] MEDS ORDERED: Furosemide 40 MG/4 ML VIAL SLOW IVP SCH (09:00)
[2019-04-18] MEDS: HumaLOG 300 UNITS/3 ML VIAL SC PRN ×2 (11:02→16:50)
--- NOTE | 2019-04-18 11:53 | NM ---
VQ SCAN: DATE: 04/18/19 COMPARISON: Chest x-ray dated 04/18/19. HISTORY: Elevated D-Dimer and shortness of breath. TECHNIQUE: A VQ scan was performed in a standard fashion. Ventilation images were performed using 19.7 mCi Xenon -133. Ventilation images were performed using 6 mCi of technetium-99m MAA. FINDINGS: VENTILATION: Breath-hold and equilibrium phases are normal. There is air trapping on delayed phase images. No vent ilator defects are seen. PERFUSION: No small, medium, or large perfusion defects are seen. IMPRESSION: 1. Very low probability for pulmonary embolism. 2. Air trapping seen on the ventilatory images may be secondary to COPD/emphysema. POS: TPC
--- NOTE | 2019-04-18 15:27 | PDOC.HOSPP ---
- Subjective Encounter Date: 04/18/19 Encounter Time: 15:25 Subjective: symptoms resolved - Objective Vital Signs & Weight: Vital Signs (12 hours) Temp Pulse Resp BP Pulse Ox 04/18/19 11:33 60 20 120/63 94 L 04/18/19 07:45 98.5 F 63 20 122/67 94 L Weight Weight 256 lb 14.4 oz I&O: 04/17/19 04/18/19 04/19/19 06:59 06:59 06:59 Intake Total 590 4 Output Total 1900 250 Balance -1310 -246 Result Diagrams: 04/18/19 04:46 04/18/19 04:46 Additional Labs: Accuchecks 04/18/19 04/17/19 10:38 19:45 POC Glucose 189 H 200 H Hospitalist ROS - Medication Medications: Active Medications Generic Name Dose Route Start Last Admin Trade Name Freq PRN Reason Stop Dose Admin Acetaminophen 650 mg 04/17/19 15:42 04/18/19 08:53 Tylenol PO 650 mg Q4H PRN Administration Headache/Fever/Mild Pain (1-3) Amiodarone HCl 100 mg 04/18/19 09:00 04/18/19 08:53 Cordarone PO 100 mg DAILY RICKY Administration Aspirin 325 mg 04/18/19 09:00 04/18/19 08:54 Ecotrin PO 325 mg DAILY RICKY Administration Atorvastatin Calcium 40 mg 04/17/19 21:00 04/17/19 21:08 Lipitor PO 40 mg HS RICKY Administration Carvedilol 3.125 mg 04/18/19 08:00 04/18/19 08:53 Coreg PO 3.125 mg BID-WM RICKY Administration Famotidine 20 mg 04/18/19 09:00 04/18/19 08:54 Pepcid PO 20 mg Q12HR RICKY Administration Fluoxetine HCl 40 mg 04/18/19 09:00 04/18/19 08:54 Prozac PO 40 mg DAILY RICKY Administration Furosemide 40 mg 04/18/19 09:00 04/18/19 08:54 Lasix SLOW IVP 40 mg DAILY RICKY Administration Insulin Human Lispro 0 units 04/17/19 15:47 04/18/19 11:02 Humalog SC 2 unit .MILD SLIDING SCALE PRN Administration Mild Correctional Scale Nystatin 0 gm 04/17/19 18:12 04/17/19 21:50 Mycostatin Powder TOP 1 applic BIDPRN PRN Administration Topical Irritations Risperidone 1.5 mg 04/17/19 21:00 04/18/19 08:55 Risperidone PO 1.5 mg BID RICKY Administration Sodium Chloride 10 ml 04/17/19 15:42 04/17/19 21:09 Flush - Normal Saline IVF 10 ml Q12HR PRN Administration Saline Flush Sodium Chloride 10 ml 04/17/19 15:42 04/17/19 22:32 Flush - Normal Saline IVF 10 ml PRN PRN Administration Saline Flush - Exam General - other findings: morbid obesity Neck: no JVD Heart: RRR Respiratory: CTAB Gastrointestinal: soft, no palpable masses Extremities: 1+ LE edema Hosp A/P (1) CAD (coronary artery disease) Code(s): I25.10 - ATHSCL HEART DISEASE OF [place] CORONARY ARTERY W/O ANG PCTRS Status: Chronic Qualifiers: Coronary Disease-Associated Artery/Lesion type: [place] artery [place] vs. 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
[2019-04-18 15:49] VITALS: BP 103/63
[2019-04-18] MEDS ORDERED: Nicotine 21 MG PATCH TD SCH (16:00)
--- NOTE | 2019-04-18 16:27 | CON ---
DATE OF CONSULTATION: REASON FOR CONSULTATION: Chest pain. PRIMARY RECYCLING SORTER: Dr. Francisco Mancia. HISTORY OF PRESENT ILLNESS: Ms. George is a 58-year-old woman, who has a history of CAD, status post bypass surgery in addition to stent placement, who recently presented with chest pain. She states this was similar to her previous symptoms. This mainly started in the back with arm radiation. She did have associated nausea and abdominal discomfort. No other associated ameliorating or exacerbating factors present. PAST MEDICAL HISTORY: CAD, status post bypass surgery; diabetes mellitus; hypertension; and hyperlipidemia. HOME MEDICATIONS: Include 1. Amiodarone. 2. Lipitor. 3. Aspirin. 4. Carvedilol. 5. Lasix. 6. Potassium. ALLERGIES: IODINE. SURGICAL HISTORY: Cyst removal. SOCIAL HISTORY: Remote tobacco abuse. REVIEW OF SYSTEMS: A 10-point review of systems is reviewed as above, otherwise negative. PHYSICAL EXAMINATION: GENERAL: Patient is a pleasant woman, who is in no acute distress. The patient appears their stated age. VITAL SIGNS: Blood pressure temperature afebrile. NEUROLOGIC: The patient is alert and oriented x3 with no focal neurologic deficits. HEENT: Sclerae without icterus. Mouth has moist mucous membranes with normal pallor. NECK: No JVD. Carotid upstroke brisk. No bruits bilaterally. LUNGS: Clear to auscultation with unlabored respirations. BACK: No scoliosis or kyphosis. CARDIAC: Regular rate and rhythm with normal S1 and S2. No S3 or S4 noted. No significant rubs, murmurs, thrills, or gallops noted throughout the precordium. PMI is not displaced. There is no parasternal heave. ABDOMEN: Soft, nontender, nondistended. No peritoneal signs present. No hepatosplenomegaly. No abnormal striae. EXTREMITIES: 2+ femoral and 2+ dorsalis pedis pulses. No cyanosis, clubbing, or edema. SKIN: No gross abnormalities. PERTINENT LABORATORY DATA: Creatinine 0.9. IMPRESSION: 1. Chest pain. 2. Coronary artery disease. 3. Status post bypass surgery. RECOMMENDATION: The patient underwent VQ scan, which makes a stress test to be performed on Tuesday. The patient has multiple risk factors for underlying coronary artery disease. previous angina. We would recommend a noninvasive stress study to assess for any areas of ischemia. Otherwise, I have no further recommendations. Job ID: [id number]
--- NOTE | 2019-04-18 17:24 | DIS ---
DATE OF ADMISSION: 04/17/2019 DATE OF DISCHARGE: 04/18/2019 TRANSFER OF CARE PRIMARY CARE PROVIDER: Tiago Pennington MD DISPOSITION: Discharged home. FINAL DIAGNOSES: Chest pain, resolved; abdominal pain, resolved; nausea, resolved; coronary artery disease; COPD; diabetes mellitus, type 2; and hypertension. DISCHARGE MEDICATIONS: Same as home medicines. 1. Risperdal 1.5 mg twice a day. 2. Lasix 20 mg a day. 3. Melatonin 5 mg h.s. 4. Prozac 40 mg a day. 5. Glucotrol 10 mg twice a day. 6. Coreg 3.125 mg twice a day. 7. Lipitor 40 mg a day. 8. Aspirin 325 mg a day. 9. Amiodarone 100 mg a day. ALLERGIES: IODINE. CODE STATUS: Full. DIET: Diabetic. PENDING AT THE TIME OF DISCHARGE: Nothing. HOSPITAL COURSE: [facility] after presenting with chest pain, some abdominal pain, history of multiple medical problems. Her cardiac enzymes 0.016, 0.019, and 0.024. Comprehensive metabolic profile normal except for a sodium 134, glucose 237. BNP was 203. The patient CBC was unremarkable. She had elevated D-dimer. She has a history of coronary artery bypass graft in August of this year. Because of D-dimer, a V/ Q scan was done, which showed low probability of pulmonary embolus. A cardiac stress test was ordered, but because of the presence of having had tracer for the lung scan, it can not be done for 48 hours. When this was explained to her, she decided she was not willing to stay. She said that if I would not discharge her that she would go AMA. She did say that she was willing to accept the risk of going home. She had family with her, who are happy with the decision. She is being discharged to call Dr. Mancia tomorrow about scheduling an outpatient cardiac stress test. CONSULTATIONS: Dr. Ivan Maloney, Cardiology. PROCEDURES: None. FOLLOWUP: Per Dr. Mancia when she calls him tomorrow. Job ID: [id number] MTDD
[2019-04-19] MEDS ORDERED: Nicotine 21 MG PATCH TD SCH (09:00)
--- NOTE | 2019-04-28 13:41 | EKG ---
Test Reason : Blood Pressure : / mmHG Vent. Rate : 058 BPM Atrial Rate : 058 BPM P-R Int : 242 ms QRS Dur : 088 ms QT Int : 442 ms P-R-T Axes : 046 016 119 degrees QTc Int : 433 ms Sinus bradycardia with 1st degree A-V block Cannot rule out Anterior infarct , age undetermined Abnormal ECG Confirmed by AGUSTO CASTRO ([id number]), film or videotape editor MALU GONZALEZ ([id number]) on 04/28/2019 1:40:57 PM Referred By: Confirmed By:AGUSTO CASTRO
== END 2019-04-18 17:46 | disposition home or self-care (01) ==
LOC: ERS 12:00 → 2SW 16:37
PROVIDERS: ADMIT Family Medicine; ATTEND Family Medicine
DX: R07.2 Precordial pain (principal); M79.89 Other specified soft tissue disorders; I25.10 Atherosclerotic heart disease of native coronary artery without angina pectoris; E11.9 Type 2 diabetes mellitus without complications; I11.0 Hypertensive heart disease with heart failure; I50.9 Heart failure, unspecified; N20.0 Calculus of kidney; G89.29 Other chronic pain; R10.9 Unspecified abdominal pain; E78.5 Hyperlipidemia, unspecified; Z87.891 Personal history of nicotine dependence; Z79.82 Long term (current) use of aspirin; Z79.84 Long term (current) use of oral hypoglycemic drugs; Z79.899 Other long term (current) drug therapy; Z91.041 Radiographic dye allergy status; Z95.1 Presence of aortocoronary bypass graft; Z95.5 Presence of coronary angioplasty implant and graft
CPT/HCPCS: 36415; 36416; 71045; 74176; 78582; 80048; 80053; 80061; 81001; 83690; 83735; 83880; 84484; 85025; 85379; 93005; 96374; 96375; 96376; A9540; A9558; G0378; J1940; S0028

== ENCOUNTER 2019-10-03 13:24 | Day surgery (SDC) | payer OTHER ==
[2019-10-02 12:43] VITALS: BMI 42.9
[2019-10-03] MEDS ORDERED: Lidocaine 1% PF 5 ML VIAL ONE (14:02)
[2019-10-03 14:36] VITALS: BP 133/59; TEMP 98.9
--- NOTE | 2019-10-03 15:39 | ULT ---
Exam: Ultrasound guided fine-needle aspiration left thyroid lobe COMPARISON: 09/12/2018 FINDINGS: Current images demonstrate a bilobed rim calcified mass in the left thyroid lobe measuring 2.5 x 2.3 cm in the maximum dimension Successful fine needle aspiration. A total of 5, 25-gauge fine-needle aspiration samples were perform ed. Three passes in the more superior peripherally calcified mass in 2 passes and the more inferior calcified mass. Postprocedure images do not demonstrate significant hematoma TECHNIQUE: Consent obtained performing fine-needle aspiration of a peripherally calcified bilobed mas s in the left thyroid lobe. Left neck was prepped and draped sterile fashion. 1% lidocaine, buffered with sodium bicarbonate was used for local anesthesia. Under sonographic guidance, a total o f 5, 25-gauge fine-needle aspiration was performed. Patient tolerated the procedure well. No immediate or postprocedure complications IMPRESSION: Successful fine-needle aspiration of a peripherally calcified mass in the left thyroid lo be. Transcribed Date/Time: 10/03/2019 4:44 PM
== END 2019-10-03 15:00 | disposition home or self-care (01) ==
LOC: ULT 13:24
PROVIDERS: ATTEND Student in an Organized Health Care Education/Training Program
PROC: 0G9G3ZX Drainage of Left Thyroid Gland Lobe, Percutaneous Approach, Diagnostic (ICD-10-PCS; principal; 2019-10-03)
DX: E07.89 Other specified disorders of thyroid (principal); E11.9 Type 2 diabetes mellitus without complications; I11.9 Hypertensive heart disease without heart failure; I25.2 Old myocardial infarction; I25.10 Atherosclerotic heart disease of native coronary artery without angina pectoris; E66.01 Morbid (severe) obesity due to excess calories; Z68.41 Body mass index [BMI] 40.0-44.9, adult; Z87.891 Personal history of nicotine dependence; Z79.82 Long term (current) use of aspirin; Z79.84 Long term (current) use of oral hypoglycemic drugs; Z79.899 Other long term (current) drug therapy; Z91.041 Radiographic dye allergy status
CPT/HCPCS: 60100; 76942; 88173; J2001

== ENCOUNTER 2019-11-24 21:56 | Inpatient (IN) | payer OTHER, SELFPAY ==
[2019-11-24] MEDS ORDERED: Enoxaparin Sodium 100 MG/ML SYRINGE ONE (23:08)
[2019-11-24 23:34] LABS: CKMB 1.4 ng/mL (0-6.6)
--- NOTE | 2019-11-24 23:36 | PDOC.HHP ---
Hospitalist HPI - History of Present Illness Shortness of breath History of Present Illness: Patient is a 59 year old female with PMH DM, HTN, CAD, CABG aug 2018 who presents to ED as transfer from [facility] for shortness of breath for two days, fever and nonproductive cough, she also reports worsening pedal edema. She is needing o2, does not use at home. Initial temperature was 102.2, breathing was labored in ED but improved, O2 88 on room air, WBC 16.1, TnI 0.172, lactiac acid normal, recieved ASA, EKG NSR. She was given azithromycin and rocephin as well as lovenox 1 mg/kg. Hospitalist ROS - Review of Systems Constitutional: reports: fever, chills, weakness, malaise Eyes: denies: pain, vision change ENT: denies: ear pain, ear discharge, mouth swelling, throat pain Respiratory: reports: cough, shortness of breath. denies: pleuritic pain, wheezing Cardiovascular: denies: chest pain, palpitations Gastrointestinal: denies: nausea, vomiting, abdominal pain, diarrhea, constipation Genitourinary: denies: dysuria, frequency Musculoskeletal: denies: neck pain, shoulder pain Skin: denies: rash, lesions Neurological: denies: weakness, numbness All other systems reviewed; all pertinent +/- noted in HPI/Subj Hospitalist History - Past Medical History Endocrine: reports: Diabetes Other Medical History: Past medical history includes cardiac history, congestive heart failure, Treated with stent placement, Past medical history includes cardiac history, coronary artery disease, Treated with angioplasty, Past medical history includes history of type 2 diabetes, not currently on treatment, Past medical history includes history of hypertension. - Past Surgical History Past Surgical History: reports: CABG (cardiac stents), Other (Cyst removed from groin.) Other Surgical History: Surgical history of coronary artery bypass graft surgery, three vessels, Date of surgery 08/2018 - Family History Other Family History: reviewed, no relevant family history - Social History Alcohol: reports: None Drugs: reports: none Other Social History: Patient denies alcohol use, Patient denies drug use, Patient currently uses tobacco, smokes cigarettes, daily, Patient smokes 1 pack per day. - Exam General Appearance: NAD, awake alert Eye: PERRL, anicteric sclera ENT: normocephalic atraumatic, no oropharyngeal lesions, moist mucosa Neck: supple, symmetric, no JVD, no thyromegaly, no lymphadenopathy, no carotid bruit Heart: RRR, no murmur, no gallops, no rubs, normal peripheral pulses Respiratory: CTAB, no wheezes, no rales, no ronchi, normal chest expansion, no tachypnea, normal percussion Gastrointestinal: soft, non-tender, non-distended, normal bowel sounds, no palpable masses, no hepatomegaly, no splenomegaly, no bruit Extremities: no cyanosis, no clubbing, 1+ LE edema Skin: normal turgor, no lesions, no rashes Neurological: cranial nerve grossly intact, normal sensation to touch, no weakness, no focal deficits, no new deficit Musculoskeletal: normal tone, normal strength, no muscle wasting Psychiatric: normal affect, normal behavior, A&O x 3 Hospitalist Results - Labs Lab results: CK-MB (CK-2) 1.4 ng/mL (0-6.6) 11/24/19 22:43 Troponin I 0.186 ng/mL (< 0.028) H 11/24/19 22:43 Additional comment: outside labs and EKG reviewed, see HPI for relevant positives Hospitalist H&P A/P - Plan Plan: Patient is a 59 year old female with PMH DM, HTN, CAD, CABG aug 2018 who presents to ED as transfer from [place] for shortness of breath for two days, fever and nonproductive cough. # suspected pneumonia # sepsis due to pneumonia # suspicion of covid 19 infectoin - admit to telemetry - trend troponins - continue azithromycin and ceftriaxone - follow up covid test, contact and droplet precautions ordered, also follow final CXR read # acute and chronic CHF - echo ordered - IV lasix, I/Os - trend troponins - consider cardiology consult pending clinical progress - continue asa, statin # DM - continue glipizide, SSI # history of CAD and CABG 08/2018 - noted, treat as above # hypoxia, debility - wean o2 as tolerated, pt/ot
[2019-11-25] MEDS ORDERED: Acetaminophen 325 MG TAB PO PRN ×2 (00:35→00:57)
[2019-11-25] MEDS ORDERED: Ondansetron PF 4 MG/2 ML Vial IVP PRN ×2 (00:35→00:56)
[2019-11-25] MEDS ORDERED: Ondansetron ODT 4 MG TAB SL PRN (00:35)
[2019-11-25] MEDS ORDERED: Morphine 2 MG/ML SYRINGE SLOW IVP PRN (00:56)
[2019-11-25] MEDS ORDERED: Promethazine HCl 12.5 MG in Sodium Chloride 0.9% 50 ML IVPB PRN (00:56)
[2019-11-25] MEDS ORDERED: cloNIDine 0.1 MG TAB PO PRN (00:56)
[2019-11-25] MEDS ORDERED: Dextrose 50% Abboject 50 ML SYRINGE SLOW IVP PRN (00:57)
[2019-11-25] MEDS ORDERED: Dextrose 5% in Water 1,000 ML IV PRN (00:57)
[2019-11-25] MEDS ORDERED: HYDROcodone/Acetaminophen 5/325 mg Tablet PO PRN (00:57)
[2019-11-25] MEDS ORDERED: Bisacodyl 5 MG TAB PO PRN (00:57)
[2019-11-25] MEDS ORDERED: Senokot S 8.6-50 MG TAB PO PRN (00:57)
[2019-11-25] MEDS ORDERED: Melatonin 3 MG TAB PO PRN (00:58)
[2019-11-25 02:21] LABS: Troponin I 0.168 ng/mL (< 0.028)
[2019-11-25 05:36] LABS: Band 15 % (5-11); Hemoglobin 13.4 g/dL (12.0-16.0); Lymphocytes 10 % (21-51); MDiff Complete? YES; Mean Corpuscular HGB CONC 32.3 g/dL (32.0-36.0); Mean Corpuscular Hemoglobin 29.6 pg (27.0-31.0); Mean Corpuscular Volume 91.6 fL (78.0-98.0); Mean Platelet Volume 8.5 fL (7.4-10.4); Monocytes 4 % (0-10); Neutrophil 71 % (42-75); Platelet Count 226 thou/uL (130-400); Platelet Morphology Comment Appears Adequate; Red Blood Cell (RBC) Count 4.54 mill/uL (4.20-5.40); White Blood Cell (WBC) Count 17.2 thou/uL (4.8-10.8)
[2019-11-25 05:40] LABS: Anion Gap 11 mmol/L (10-20); BUN (Urea Nitrogen) 11 mg/dL (9.8-20.1); Calc. Creatinine Clearance 124 mL/min (70-130); Calcium 8.1 mg/dL (7.8-10.44); Carbon Dioxide 23 mmol/L (23-31); Chloride 102 mmol/L (98-107); Estimated GFR-MDRD 67; Glucose 254 mg/dL (80-115); Magnesium 1.9 mg/dL (1.6-2.6); Potassium 4.4 mmol/L (3.5-5.1); Sodium 132 mmol/L (136-145)
[2019-11-25 05:44] LABS: Troponin I 0.165 ng/mL (< 0.028)
[2019-11-25] MEDS: HumaLOG 300 UNITS/3 ML VIAL SC PRN ×3 (06:25→21:21)
[2019-11-25] MEDS: Furosemide 40 MG/4 ML VIAL SLOW IVP SCH ×2 (06:26→15:09)
[2019-11-25] MEDS: Famotidine 20 MG TAB PO SCH ×2 (09:00→20:51)
[2019-11-25] MEDS: glipiZIDE 5 MG TAB PO SCH ×2 (09:00→15:09)
[2019-11-25] MEDS: Azithromycin 250 MG TAB PO SCH (09:00)
[2019-11-25] MEDS: busPIRone HCl 5 MG TAB PO SCH ×2 (09:00→20:51)
[2019-11-25] MEDS: Aspirin 325 mg Enteric Coated Tablet PO SCH (09:00)
[2019-11-25] MEDS: Enoxaparin Sodium 40 MG/0.4 ML SYRINGE SC SCH (09:01)
[2019-11-25] MEDS: FLUoxetine HCl 20 MG CAP PO SCH (09:01)
[2019-11-25] MEDS: Polyethylene Glycol 3350 17 GM Packet PO SCH (09:01)
[2019-11-25] MEDS: risperiDONE 3 MG TAB PO SCH ×2 (09:01→20:51)
--- NOTE | 2019-11-25 13:57 | PDOC.HOSPP ---
- Subjective Encounter Date: 11/25/19 (f/u heart failure) Encounter Time: 13:55 Subjective: Pt reports she is feeling better, breathing is improved. She is not on oxygen at home. She denies any pain, chest pain, or other symptoms. - Objective Vital Signs & Weight: Vital Signs (12 hours) Temp Pulse Resp BP Pulse Ox 11/25/19 13:00 98.5 F 88 24 H 158/71 H 95 11/25/19 09:00 98.6 F 80 20 161/70 H 97 11/25/19 08:00 97 11/25/19 05:00 98.8 F 80 18 143/63 H 96 Weight Weight 251 lb 5.231 oz I&O: 11/24/19 11/25/19 11/26/19 06:59 06:59 06:59 Intake Total 250 Balance 250 Result Diagrams: 11/25/19 04:52 11/25/19 04:52 Additional Labs: Accuchecks 11/25/19 12:31 POC Glucose 196 H EKG Reviewed by me: Yes (tele - sinus 70-80's, PVC's) Hospitalist ROS - Medication Medications: Active Medications Generic Name Dose Route Start Last Admin Trade Name Freq PRN Reason Stop Dose Admin Aspirin 325 mg 11/25/19 09:00 11/25/19 09:00 Ecotrin PO 325 mg DAILY RICKY Administration Azithromycin 250 mg 11/25/19 09:00 11/25/19 09:00 Zithromax PO 11/28/19 09:01 250 mg DAILY RICKY Administration Buspirone HCl 5 mg 11/25/19 09:00 11/25/19 09:00 Buspar PO 5 mg BID RICKY Administration Enoxaparin Sodium 40 mg 11/25/19 09:00 11/25/19 09:01 Lovenox SC 40 mg 0900 RICKY Administration Famotidine 20 mg 11/25/19 09:00 11/25/19 09:00 Pepcid PO 20 mg BID RICKY Administration Fluoxetine HCl 40 mg 11/25/19 09:00 11/25/19 09:01 Prozac PO 40 mg DAILY RICKY Administration Furosemide 40 mg 11/25/19 06:00 11/25/19 06:26 Lasix SLOW IVP 40 mg 0600,1400 RICKY Administration Glipizide 10 mg 11/25/19 07:30 11/25/19 09:00 Glucotrol PO 10 mg BID-AC RICKY Administration Insulin Human Lispro 0 units 11/25/19 00:57 11/25/19 12:39 Humalog SC 2 unit .MILD SLIDING SCALE PRN Administration Mild Correctional Scale Polyethylene Glycol 17 gm 11/25/19 09:00 11/25/19 09:01 Miralax PO Not Given DAILY RICKY Risperidone 1.5 mg 11/25/19 09:00 11/25/19 09:01 Risperidone PO 1.5 mg BID RICKY Administration Sodium Chloride 10 ml 11/25/19 09:00 11/25/19 09:04 Flush - Normal Saline IVF 10 ml Q12HR RICKY Administration - Exam General Appearance: NAD Heart: RRR, no murmur Respiratory: no wheezes, no rales, no ronchi Respiratory - other findings: decreased breath sounds at the bases Gastrointestinal: soft, non-tender, non-distended, normal bowel sounds Extremities - other findings: 3+ pitting edema in bilateral LE Psychiatric: normal affect Hosp A/P (1) Acute respiratory failure with hypoxia Code(s): J96.01 - ACUTE RESPIRATORY FAILURE WITH HYPOXIA Status: Acute (2) Sepsis Code(s): A41.9 - SEPSIS, UNSPECIFIED ORGANISM Status: Acute Qualifiers: Sepsis type: sepsis due to unspecified organism Sepsis acute organ dysfunction status: without acute organ dysfunction Qualified Code(s): A41.9 - Sepsis, unspecified organism (3) Pneumonia Code(s): J18.9 - PNEUMONIA, UNSPECIFIED ORGANISM Status: Suspected Qualifiers: Pneumonia type: due to unspecified organism (4) Decompensated heart failure Code(s): I50.9 - HEART FAILURE, UNSPECIFIED Status: Acute (5) Diabetes mellitus Code(s): E11.9 - TYPE 2 DIABETES MELLITUS WITHOUT COMPLICATIONS Status: Chronic Qualifiers: Diabetes mellitus type: type 2 (6) CAD (coronary artery disease) Code(s): I25.10 - ATHSCL HEART DISEASE OF [place] CORONARY ARTERY W/O ANG PCTRS Status: Chronic Qualifiers: Coronary Disease-Associated Artery/Lesion type: bypass graft [place] vs. transplanted heart: circle heart Associated angina: angina presence unspecified Qualified Code(s): I25.810 - Atherosclerosis of coronary artery bypass graft(s) without angina pectoris - Plan Decompensated heart failure - continue IV lasix - manage blood pressure - echo order - hold on Cardiology consult until COVID test result obtained Pneumonia - suspected - continue Rocephin and Azithromycin' - continue isolation until COVID results obtained Indeterminant troponin - suspect related to demand ischemia with heart failure DM - continue oral meds and SSI DVT prophy - lovenox GI prophy - not indicated code status full reviewed plan of care with patient who demonstrates understanding and agrees, no questions or further needs at end of eval
[2019-11-25] MEDS: Atorvastatin Calcium 40 MG TAB PO SCH (20:51)
[2019-11-25] MEDS: traZODone HCl 50 MG TAB PO SCH (20:51)
[2019-11-25] MEDS: cefTRIAXone\\ROCEPHIN 1 GM in Sodium Chloride 0.9% 100 ML IVPB SCH (20:54)
[2019-11-26 04:52] LABS: #Eosinphils 0.1 thou/uL (0.0-0.7); #Lymphocytes 1.6 thou/uL (1.20-3.40); #Neutrophils 9.7 thou/uL (1.40-6.50); %Basophils 0.3 % (0.0-1.0); %Eosinophils 0.6 % (0.0-10.0); %Lymphocytes 12.6 % (21.0-51.0); %Monocytes 8.3 % (0.0-10.0); %Neutrophils 78.2 % (42.0-75.0); Hemoglobin 12.4 g/dL (12.0-16.0); Mean Corpuscular HGB CONC 32.4 g/dL (32.0-36.0); Mean Corpuscular Hemoglobin 29.8 pg (27.0-31.0); Mean Corpuscular Volume 92.1 fL (78.0-98.0); Mean Platelet Volume 8.1 fL (7.4-10.4); Platelet Count 217 thou/uL (130-400); RBC Distribution Width 12.8 % (11.5-14.5); Red Blood Cell (RBC) Count 4.15 mill/uL (4.20-5.40); White Blood Cell (WBC) Count 12.4 thou/uL (4.8-10.8)
[2019-11-26 05:21] LABS: Anion Gap 9 mmol/L (10-20); BUN (Urea Nitrogen) 14 mg/dL (9.8-20.1); Calc. Creatinine Clearance 116 mL/min (70-130); Calcium 8.3 mg/dL (7.8-10.44); Carbon Dioxide 27 mmol/L (23-31); Chloride 103 mmol/L (98-107); Estimated GFR-MDRD 62; Glucose 188 mg/dL (80-115); Magnesium 1.9 mg/dL (1.6-2.6); Sodium 135 mmol/L (136-145)
[2019-11-26] MEDS: Furosemide 40 MG/4 ML VIAL SLOW IVP SCH ×2 (06:01→12:59)
[2019-11-26] MEDS: HumaLOG 300 UNITS/3 ML VIAL SC PRN ×3 (06:01→17:15)
[2019-11-26] MEDS: risperiDONE 3 MG TAB PO SCH ×2 (08:28→20:05)
[2019-11-26] MEDS: Polyethylene Glycol 3350 17 GM Packet PO SCH ×2 (08:28→08:51)
[2019-11-26] MEDS: Enoxaparin Sodium 40 MG/0.4 ML SYRINGE SC SCH (08:28)
[2019-11-26] MEDS: Famotidine 20 MG TAB PO SCH ×2 (08:28→20:05)
[2019-11-26] MEDS: busPIRone HCl 5 MG TAB PO SCH ×2 (08:29→20:04)
[2019-11-26] MEDS: Azithromycin 250 MG TAB PO SCH (08:29)
[2019-11-26] MEDS: glipiZIDE 5 MG TAB PO SCH ×2 (08:29→17:15)
[2019-11-26] MEDS: FLUoxetine HCl 20 MG CAP PO SCH (08:29)
[2019-11-26] MEDS: Aspirin 325 mg Enteric Coated Tablet PO SCH (08:29)
--- NOTE | 2019-11-26 12:30 | PDOC.HOSPP ---
- Subjective Encounter Date: 11/26/19 (f/u resp failure) Encounter Time: 12:28 Subjective: Pt reports feeling better - breathing improved. She has LAWRENCE to the bathroom. Covid test is negative. Pt denies any new sx. - Objective Vital Signs & Weight: Vital Signs (12 hours) Temp Pulse Resp BP BP Pulse Ox 11/26/19 08:52 98.4 F 79 18 143/62 H 97 11/26/19 05:00 98.8 F 89 18 178/83 H 96 Weight Weight 251 lb 5.231 oz I&O: 11/25/19 11/26/19 11/27/19 06:59 06:59 06:59 Intake Total 250 1730 Output Total 2250 Balance 250 -520 Result Diagrams: 11/26/19 04:08 11/26/19 04:08 Additional Labs: Accuchecks 11/26/19 11/25/19 11/25/19 11:59 21:07 15:31 POC Glucose 295 H 309 H 133 H 11/25/19 12:31 POC Glucose 196 H EKG Reviewed by me: Yes (tele - sinus 80's) Hospitalist ROS - Medication Medications: Active Medications Generic Name Dose Route Start Last Admin Trade Name Freq PRN Reason Stop Dose Admin Aspirin 325 mg 11/25/19 09:00 11/26/19 08:29 Ecotrin PO 325 mg DAILY RICKY Administration Atorvastatin Calcium 40 mg 11/25/19 21:00 11/25/19 20:51 Lipitor PO 40 mg HS RICKY Administration Azithromycin 250 mg 11/25/19 09:00 11/26/19 08:29 Zithromax PO 11/28/19 09:01 250 mg DAILY RICKY Administration Buspirone HCl 5 mg 11/25/19 09:00 11/26/19 08:29 Buspar PO 5 mg BID RICKY Administration Enoxaparin Sodium 40 mg 11/25/19 09:00 11/26/19 08:28 Lovenox SC 40 mg 0900 RICKY Administration Famotidine 20 mg 11/25/19 09:00 11/26/19 08:28 Pepcid PO 20 mg BID RICKY Administration Fluoxetine HCl 40 mg 11/25/19 09:00 11/26/19 08:29 Prozac PO 40 mg DAILY RICKY Administration Furosemide 40 mg 11/25/19 06:00 11/26/19 06:01 Lasix SLOW IVP 40 mg 0600,1400 RICKY Administration Glipizide 10 mg 11/25/19 07:30 11/26/19 08:29 Glucotrol PO 10 mg BID-AC RICKY Administration Ceftriaxone Sodium 1 gm/ 100 mls @ 200 mls/hr 11/25/19 22:00 11/25/19 20:54 Sodium Chloride IVPB 11/28/19 22:29 100 mls Q24HR RICKY Administration Insulin Human Lispro 0 units 11/25/19 00:57 11/26/19 06:01 Humalog SC 2 unit .MILD SLIDING SCALE PRN Administration Mild Correctional Scale Polyethylene Glycol 17 gm 11/25/19 09:00 11/26/19 08:51 Miralax PO Not Given DAILY RICKY Risperidone 1.5 mg 11/25/19 09:00 11/26/19 08:28 Risperidone PO 1.5 mg BID RICKY Administration Sodium Chloride 10 ml 11/25/19 09:00 11/26/19 08:30 Flush - Normal Saline IVF 10 ml Q12HR RICKY Administration Trazodone HCl 50 mg 11/25/19 21:00 11/25/19 20:51 Desyrel PO 50 mg HS RICKY Administration - Exam General Appearance: NAD Heart: RRR, no murmur Respiratory: no wheezes, no ronchi Respiratory - other findings: bibasilar rales Gastrointestinal: soft, non-tender, normal bowel sounds Extremities - other findings: 3+ pitting edema Neurological: no focal deficits Psychiatric: normal affect Hosp A/P (1) Acute respiratory failure with hypoxia Code(s): J96.01 - ACUTE RESPIRATORY FAILURE WITH HYPOXIA Status: Acute (2) Sepsis Code(s): A41.9 - SEPSIS, UNSPECIFIED ORGANISM Status: Acute Qualifiers: Sepsis type: sepsis due to unspecified organism Sepsis acute organ dysfunction status: without acute organ dysfunction Qualified Code(s): A41.9 - Sepsis, unspecified organism (3) Pneumonia Code(s): J18.9 - PNEUMONIA, UNSPECIFIED ORGANISM Status: Suspected Qualifiers: Pneumonia type: due to unspecified organism (4) Decompensated heart failure Code(s): I50.9 - HEART FAILURE, UNSPECIFIED Status: Acute (5) Diabetes mellitus Code(s): E11.9 - TYPE 2 DIABETES MELLITUS WITHOUT COMPLICATIONS Status: Chronic Qualifiers: Diabetes mellitus type: type 2 (6) CAD (coronary artery disease) Code(s): I25.10 - ATHSCL HEART DISEASE OF [place] CORONARY ARTERY W/O ANG PCTRS Status: Chronic Qualifiers: Coronary Disease-Associated Artery/Lesion type: bypass graft [place] vs. transplanted heart: [place] heart Associated angina: angina presence unspecified Qualified Code(s): I25.810 - Atherosclerosis of coronary artery bypass graft(s) without angina pectoris - Plan Decompensated heart failure - continue IV lasix - improvement - supplemental oxygen as needed - manage blood pressure - echo ordered - Cardiology consult now that pt is COVID negative Pneumonia - suspected - afebrile here, wbc count improving - continue Rocephin and Azithromycin - d/c isolation Indeterminant troponin - suspect related to demand ischemia with heart failure DM - uncontrolled - add long-acting insulin. - needs close f/u as outpatient, as uncontrolled at home. DVT prophy - lovenox GI prophy - not indicated code status full reviewed plan of care with patient who demonstrates understanding and agrees, no questions or further needs at end of eval anticipate another 1-2 days of diuresis by IV - d/w patient.
[2019-11-26] MEDS ORDERED: Carvedilol 3.125 MG TAB PO SCH (20:00)
[2019-11-26] MEDS: Atorvastatin Calcium 40 MG TAB PO SCH (20:04)
[2019-11-26] MEDS: Insulin Glargine 10 UNITS in Pre-Filled Syringe 1 EACH SC SCH (20:05)
[2019-11-26] MEDS: traZODone HCl 50 MG TAB PO SCH (20:05)
[2019-11-26] MEDS: cefTRIAXone\\ROCEPHIN 1 GM in Sodium Chloride 0.9% 100 ML IVPB SCH (21:18)
--- NOTE | 2019-11-27 02:26 | CON ---
DATE OF CONSULTATION: PRIMARY CARE DOCTOR: Tiago Pennington MD PRIMARY MANDOLIN REPAIR PERSON: Dr. Francisco Mancia. REFERRING DOCTOR: Dr. Padilla. REASON FOR CARDIOLOGY CONSULT: Acute on chronic heart failure. HISTORY OF PRESENT ILLNESS: Ms. George is a 59-year-old female with a significant history of diabetes type 2, hypertension, hyperlipidemia, coronary artery disease with status post CABG x3 in August 2018, obese, and depression. Last time, the patient followed up with Dr. Mancia was in December 2018 for status post CABG and chronic systolic heart failure. She has echocardiogram done at Dr. Mancia's office in December 2018, which showed EF in the 50% to 55% from 25% to 30% in August 2018. Since then, she has not followed up with Dr. Mancia due to financial problems and lack of insurance. The patient's medication has been managed by the patient's primary care doctors. She was doing relatively well until 3-4 days ago, when she started having shortness of breath since last Tuesday. The patient's temperature spiked up and the patient started to feel chillness. Due to those reasons, patient decided to present to the emergency department for further evaluation and treatment. COVID-19 was ruled out today. The patient denies any chest pain, heaviness, tightness, dizziness, lightheadedness, and any other cardiac complaints during the episode. At this moment, the patient denied any shortness of breath, chillness, or any other cardiac complaints. The patient also is complaining of bilateral lower edema for more than 6 months. She has been on Lasix 40 mg once a day. She is not watching salt intake. She drinks at least three 500 mL of bottle water and 2 cups of coffee, but she eats Ramen noodles, frozen vegetables, frozen food at home. The patient underwent CABG x3 in September 02, 2018 with SVG to diagonal, SVG to OM2, and SVG to PDA with left appendix ligation. The patient had echocardiogram done in December [address] Mancia's office with EF 50% to 55%, mild left atrium enlargement, moderate mitral valve regurgitation, mild tricuspid regurgitation, and mild pulmonary valve regurgitation. PAST MEDICAL HISTORY: Diabetes type 2, hypertension, hyperlipidemia, CAD, obese , and chronic systolic heart failure. PAST SURGICAL HISTORY: Cyst removed from bilateral groins, CABG x3 in August 2018 with EF of 30% FAMILY HISTORY: The patient's father already, had a history of diabetes and hypertension. The patient's mother had medical history of diabetes, hypertension, and congestive heart failure. The patient's 2 siblings have history of diabetes. SOCIAL HISTORY: The patient is single. The patient is living with her roommate. No children. She continued to smoke 1 pack a day. She is willing to stop smoking. For PE the patient denied EtOH or illicit drug abuse. She does not exercise. She drinks at least 2 cups of coffee in the morning and at least 3 bottles of water and she eats ramen noodles, frozen vegetable, frozen food and she is eating out at least 2 times a week. ALLERGIES: SHE IS ALLERGIC TO IODINE. HOME MEDICATIONS: 1. Aspirin 325 mg once a day. 2. Atorvastatin 40 mg once a day. 3. Glipizide 10 mg twice a day. 4. Melatonin 5 mg once a day at night. 5. Risperdal 1.5 mg twice a day. 6. Furosemide 40 mg once a day. 7. Prozac 60 mg once a day. 8. Trazodone 50 mg at night. 9. BuSpar 5 mg twice a day. REVIEW OF SYSTEMS: A 12-point review of systems negative unless otherwise mentioned in the HPI. PHYSICAL EXAMINATION: VITAL SIGNS: Blood pressure 148/70, temperature 98.7, pulse is 84, sinus rhythm , respiratory rate 18, O2 saturation 93-95% on room air. GENERAL: The patient is alert and oriented x4, not in acute distress. HEENT: Normocephalic, atraumatic. HEENT: Eyes; extraocular muscle movements intact. ENT and mouth; oral and nasal mucosa moist without lesion. NECK: Supple. Normal range of motion. No JVD. Carotid pulses are present. No bruit or thrill noted. RESPIRATORY: Clear to auscultation bilaterally, but diminished at the bases. No wheezing, rales, or rhonchi noted. CARDIOVASCULAR: Regular rate and rhythm. Normal S1, S2. No significant murmur , hives, or thrill noted. 2+ pulses in the bilateral upper and lower extremities. The patient has 2-3 pitting edema around the ankle but below knee to the ankle the patient has mild edema. ABDOMEN: Soft, nontender. No mass to palpitate. Bowel sounds are present. MUSCULOSKELETAL: The patient able to move all extremities. The patient denied claudication. SKIN: Warm and dry. No lesion, rash, or erythema noted. NEUROLOGIC: The patient is alert and oriented x4. Nonfocal. PSYCHIATRIC: The patient's mood is appropriate. LABORATORY DATA: WBC 12.4, hemoglobin 12.4, hematocrit 38.2, platelet 217. Sodium 135, potassium 4.0, BUN 14, creatinine 0.92, glucose 188. Lactic acid 1.3, calcium 8.3, magnesium 1.9. AST 11, ALT 8. CK-MB 1.4. Troponin is 0.186, 0.168, 0.165. TSH was 2.8405. The patient had a pulmonary perfusion test which shows very low probability for pulmonary embolism and air trapping seen on the ventilatory imaging may be secondary to COPD/emphysema. ASSESSMENT AND PLAN: 1. Acute on chronic congestive heart failure. The patient has a past medical history of acute on chronic systolic heart failure. Echo in December 2018 showed EF 50% to 55% at Dr. Mancia's office. Since then, patient has been stable according to the patient until this admission. Her symptom of shortness of breath has been improved with Lasix 40 mg IV push twice a day. We would like to resume carvedilol 3.125 mg twice a day from today. If the patient 's blood pressure is still stable, RENETTA inhibitor or ARB will be started for this patient. Also, the patient's should be beneficial from those medicine because the patient had a history of diabetes. 2. Elevated troponin level secondary to demand ischemia from pneumonia and/or acute on chronic heart failure. The patient's troponin is indeterminate. The patient denied any cardiac complaints except significant shortness of breath and chillness with elevated temperature. We would like to continue to monitor on the telemetry at this moment. The patient's troponin and EKG have not shown any ST-segment change or T-wave inversion. 3. Coronary artery disease with history of coronary artery bypass graft x3 in August 2018. The patient's condition is stable at this moment. She is on atorvastatin 40 mg once a day and aspirin 325 mg once a day. Again, the beta-hailey would be resumed from today. 4. Hypertension. The patient's blood pressure is stable at this moment. 5. Hyperlipidemia. She is on statin. 6. Obesity. The patient is recommended to start a weight management and low carb diet with more vegetables and fruits and regular exercise. 7. Current smoker. The patient was strongly recommend to start smoking cessation. 8. Mitral valve regurgitation. According to the patient's last echocardiogram in December [address] Mancia's office, it showed the patient has a moderate mitral valve regurgitation. At this moment, the patient is asymptomatic. The patient had echocardiogram done today and results pending at this moment. 9. Possible chronic obstructive pulmonary disease. According to patient's pulmonary perfusion imaging in March 2019, the results suggesting the patient has chronic obstructive pulmonary disease or emphysema. 10. Paroxysmal atrial fibrillation. According to the patient, the patient has medical history of paroxysmal atrial fibrillation. She was on amiodarone 200 mg once a day. However, she is not on the medication at home at this moment and she is not on the carvedilol at home. The Decision is going to be deferred to Dr. Mancia. Thank you very much for Cardiology Service to participate in the care of this patient. We will follow along the patient's care team and make further recommendations as appropriate. Job ID: [id number] IFRAH
[2019-11-27 05:02] LABS: #Basophils 0.1 thou/uL (0.0-0.2); #Eosinphils 0.1 thou/uL (0.0-0.7); #Lymphocytes 1.8 thou/uL (1.20-3.40); #Neutrophils 7.1 thou/uL (1.40-6.50); %Basophils 0.8 % (0.0-1.0); %Eosinophils 1.5 % (0.0-10.0); %Lymphocytes 17.6 % (21.0-51.0); %Neutrophils 70.1 % (42.0-75.0); Hemoglobin 12.3 g/dL (12.0-16.0); Mean Corpuscular Hemoglobin 27.9 pg (27.0-31.0); Mean Corpuscular Volume 92.8 fL (78.0-98.0); Mean Platelet Volume 8.2 fL (7.4-10.4); Platelet Count 261 thou/uL (130-400); RBC Distribution Width 12.8 % (11.5-14.5); Red Blood Cell (RBC) Count 4.42 mill/uL (4.20-5.40); White Blood Cell (WBC) Count 10.1 thou/uL (4.8-10.8)
[2019-11-27 05:20] LABS: Anion Gap 11 mmol/L (10-20); BUN (Urea Nitrogen) 16 mg/dL (9.8-20.1); Calc. Creatinine Clearance 130 mL/min (70-130); Calcium 8.7 mg/dL (7.8-10.44); Carbon Dioxide 26 mmol/L (23-31); Chloride 102 mmol/L (98-107); Estimated GFR-MDRD 71; Glucose 165 mg/dL (80-115); Sodium 135 mmol/L (136-145)
[2019-11-27] MEDS: Furosemide 40 MG/4 ML VIAL SLOW IVP SCH ×2 (05:45→13:37)
[2019-11-27] MEDS: HumaLOG 300 UNITS/3 ML VIAL SC PRN ×3 (05:52→16:54)
--- NOTE | 2019-11-27 07:39 | CON ---
DATE OF CONSULTATION: 11/26/2019 ADDENDUM: INDICATION FOR CONSULTATION: A 59-year-old female with a history of coronary artery disease, bypass surgery, was admitted after she complained of having lower extremity edema and also had a fever. HISTORY OF PRESENT ILLNESS: This very pleasant 59-year-old female, who has been followed by Dr. Mancia in the past. She underwent bypass surgery I believe in 2018. She has also had stent placement. She was in the hospital back also in March 2019. I do not believe she has been seen in the office for followup since that time. However, she had been doing relatively well at home. She was not paying very close attention to her fluid intake however. Then, she developed lower extremity edema with increasing shortness of breath and then on Tuesday, she says she had a temperature of up to 108; however, when she presented to the emergency room here, temperature was lower than that I believe and she said was around 103. She has been ruled out for COVID and at this time has been given diuretics and has had some improvement in her lower extremity edema. She has not been walking very much at home due to having foot pain, which she says is due to a fungal infection, but otherwise has not been having any other significant complaints. She denied any chest pain, but mainly the shortness of breath and difficulty to ambulate and the lower extremity edema. Her cardiac enzymes on this admission were indeterminate with a troponin I on admission of 0.186 and then decreased down to 0.165. Certainly, if she had significant temperature, this may be the etiology of having the slight elevation of the cardiac enzymes. Her MB was negative. She also has some hyponatremia. PAST MEDICAL HISTORY: Significant for the coronary artery disease as well as angioplasty and stent placement and bypass surgery. She also has a history of diabetes, hypertension, and dyslipidemia. She does have some history of atrial fibrillation and had been placed on amiodarone. MEDICATIONS: Please refer to the notes dictated by my nurse practitioner. ALLERGIES: PLEASE REFER TO THE NOTES DICTATED BY MY NURSE PRACTITIONER. SOCIAL HISTORY: Please refer to the notes dictated by my nurse practitioner. REVIEW OF SYSTEMS: Please refer to the notes dictated by my nurse practitioner. PHYSICAL EXAMINATION: GENERAL: Reveals a morbidly obese female, who is in no acute distress at this time. VITAL SIGNS: Her blood pressure earlier today was 148/70, now last blood pressure was 162/76. She is afebrile now. Her heart rate was 91 and shows a sinus rhythm, respiratory rate is about 18, and O2 saturation is 94%. HEENT: Shows the head to be normocephalic and atraumatic. Carotid pulses are present. I did not hear any bruits. CHEST: Actually clear to auscultation. I did not hear any rales, rhonchi, or wheezing. CARDIOVASCULAR: Reveals a regular rate and rhythm. There is a normal S1 and S2. I do not hear any significant S3 or S4. There were no significant murmurs, heaves, thrills, bruits, or rubs that I could auscultate. She has well-healed midline surgical incision after median sternotomy. ABDOMEN: Shows morbid obesity. I cannot palpate any palpable masses or tenderness. EXTREMITIES: Show 2 to 3+ lower extremity edema. NEUROLOGIC: She appears to be intact. LABORATORY DATA: Shows a sodium of 132 on 11/24, has now gone up to 135, potassium is 4.0. Her BUN was 14 with a creatinine of 0.92, blood sugar was 274 this evening. Her WBC is 12.4, hemoglobin 12.4, and hematocrit was 38.2, platelet count was 217,000. DIAGNOSTIC STUDIES: Her EKG shows a sinus rhythm with decreased R-wave progression in V1 through V4. This may be compatible with an old myocardial infarction or due to left ventricular hypertrophy. I do not see very much R-wave here in these leads, but she denied any chest pain. We will need to compare with an older EKG. IMPRESSION: A 59-year-old female with a history of worsening lower extremity edema and history of bypass surgery and coronary artery disease and stent placement. She has had some diuresis since being here. She will need to have continued diuresis. We may need to readjust her medications. She may need to have further diuretics when she is discharged from the hospital. Her renal function appears to be stable and she should be able to tolerate the medications. Also, she has not had any echocardiogram performed. She did have some type of echo previously as an outpatient that was due to her insurance requiring echo to be performed for disability benefits, but I do not have the results of that. She did undergo cardiac catheterization in August 2018 prior to having a bypass surgery and I do not see the ejection fraction, but obviously she most likely had an ejection fraction performed during that cardiac catheterization for evaluation of the left ventricular systolic function. Apparently, echocardiogram by evaluation of the records showed the left ventriculogram was about 25% at the time of the bypass surgery in August 2018. At the time of her cardiac catheterization, she was found to have a 99% mid left anterior descending artery stenosis with some filling from the right. She also had a 70% mid circumflex stenosis as well as 70% first obtuse marginal stenosis and the right coronary artery was 90% stenosed in the mid section as well as also posterior descending and posterior lateral branches of 70% stenosis. At this time, we will see if we can get a repeat echocardiogram for evaluation of the left ventricular systolic function to see whether or not we need to make any further changes in her medical management. For the remainder of her assessment and plan, please refer to the notes dictated by the nurse practitioner, but from my perspective, she appears from a cardiac standpoint to be doing relatively well. We will continue with diuresis. She has not had any significant diuresis in the last couple of days. She has -520 on the and today has been -390 mL. Further care of the patient will be by Dr. Mancia when he visits with the patient tomorrow. I have discussed this patient with the nurse practitioner. I have reviewed the patient and the notes and would agree with the assessment and plan. Job ID: [id number]
[2019-11-27] MEDS: glipiZIDE 5 MG TAB PO SCH ×2 (07:53→16:47)
[2019-11-27] MEDS: hydrALAZINE 20 MG/ML VIAL SLOW IVP PRN ×2 (07:55→23:12)
[2019-11-27] MEDS: Polyethylene Glycol 3350 17 GM Packet PO SCH (07:56)
[2019-11-27] MEDS: FLUoxetine HCl 20 MG CAP PO SCH (07:56)
[2019-11-27] MEDS: Aspirin 325 mg Enteric Coated Tablet PO SCH (07:56)
[2019-11-27] MEDS: risperiDONE 3 MG TAB PO SCH ×2 (07:56→21:30)
[2019-11-27] MEDS: Famotidine 20 MG TAB PO SCH ×2 (07:57→21:30)
[2019-11-27] MEDS: Enoxaparin Sodium 40 MG/0.4 ML SYRINGE SC SCH (07:57)
[2019-11-27] MEDS: Azithromycin 250 MG TAB PO SCH (07:57)
[2019-11-27] MEDS: busPIRone HCl 5 MG TAB PO SCH ×2 (07:57→21:30)
[2019-11-27] MEDS ORDERED: Carvedilol 3.125 MG TAB PO SCH (08:00)
--- NOTE | 2019-11-27 10:53 | PDOC.HOSPP ---
- Subjective Encounter Date: 11/27/19 Encounter Time: 10:52 Subjective: Doing well. Denies any complaints. No SOB or cough. She does affirm that she was taking Coreg at home. - Objective Vital Signs & Weight: Vital Signs (12 hours) Temp Pulse Resp BP BP Pulse Ox 11/27/19 08:05 96 11/27/19 07:55 74 11/27/19 07:16 98.4 F 74 16 187/81 H 96 11/27/19 03:50 99.1 F 85 19 173/81 H 95 Weight Weight 249 lb 1.6 oz I&O: 11/26/19 11/27/19 11/28/19 06:59 06:59 06:59 Intake Total 1730 1260 Output Total 2250 1850 Balance -520 -590 Result Diagrams: 11/27/19 04:47 11/27/19 04:47 Additional Labs: Accuchecks 11/27/19 11/26/19 11/26/19 05:48 20:04 17:19 POC Glucose 165 H 274 H 167 H 11/26/19 11:59 POC Glucose 295 H Hospitalist ROS - Medication Medications: Active Medications Generic Name Dose Route Start Last Admin Trade Name Freq PRN Reason Stop Dose Admin Aspirin 325 mg 11/25/19 09:00 11/27/19 07:56 Ecotrin PO 325 mg DAILY RICKY Administration Atorvastatin Calcium 40 mg 11/25/19 21:00 11/26/19 20:04 Lipitor PO 40 mg HS RICKY Administration Azithromycin 250 mg 11/25/19 09:00 11/27/19 07:57 Zithromax PO 11/28/19 09:01 250 mg DAILY RICKY Administration Buspirone HCl 5 mg 11/25/19 09:00 11/27/19 07:57 Buspar PO 5 mg BID RICKY Administration Carvedilol 3.125 mg 11/27/19 08:00 11/27/19 07:53 Coreg PO 3.125 mg BID-WM RICKY Administration Enoxaparin Sodium 40 mg 11/25/19 09:00 11/27/19 07:57 Lovenox SC 40 mg 0900 RICKY Administration Famotidine 20 mg 11/25/19 09:00 11/27/19 07:57 Pepcid PO 20 mg BID RICKY Administration Fluoxetine HCl 40 mg 11/25/19 09:00 11/27/19 07:56 Prozac PO 40 mg DAILY RICKY Administration Furosemide 40 mg 11/25/19 06:00 11/27/19 05:45 Lasix SLOW IVP 40 mg 0600,1400 RICKY Administration Glipizide 10 mg 11/25/19 07:30 11/27/19 07:53 Glucotrol PO 10 mg BID-AC RICKY Administration Hydralazine HCl 10 mg 11/25/19 00:56 11/27/19 07:55 Apresoline SLOW IVP 10 mg Q6H PRN Administration SBP GREATER THAN 160 Ceftriaxone Sodium 1 gm/ 100 mls @ 200 mls/hr 11/25/19 22:00 11/26/19 21:18 Sodium Chloride IVPB 11/28/19 22:29 100 mls Q24HR RICKY Administration Insulin Glargine 10 units/ 0.1 mls @ 0 mls/hr 11/26/19 21:00 11/26/19 20:05 Miscellaneous Medication SC 0.1 mls HS RICKY Administration Insulin Human Lispro 0 units 11/25/19 00:57 11/27/19 05:52 Humalog SC 2 unit .MILD SLIDING SCALE PRN Administration Mild Correctional Scale Polyethylene Glycol 17 gm 11/25/19 09:00 11/27/19 07:56 Miralax PO Not Given DAILY RICKY Risperidone 1.5 mg 11/25/19 09:00 11/27/19 07:56 Risperidone PO 1.5 mg BID RICKY Administration Sodium Chloride 10 ml 11/25/19 09:00 11/27/19 07:58 Flush - Normal Saline IVF 10 ml Q12HR RICKY Administration Sodium Chloride 10 ml 11/25/19 00:35 11/27/19 05:45 Flush - Normal Saline IVF 10 ml PRN PRN Administration Saline Flush Trazodone HCl 50 mg 11/25/19 21:00 11/26/19 20:05 Desyrel PO 50 mg HS RICKY Administration - Exam General Appearance: NAD, awake alert General - other findings: morbidly obese. Heart: RRR, no murmur, no gallops, no rubs, normal peripheral pulses Respiratory: CTAB, no wheezes, no rales, no ronchi, normal chest expansion, no tachypnea, normal percussion Gastrointestinal: soft, non-tender, non-distended, normal bowel sounds, no palpable masses, no hepatomegaly, no splenomegaly, no bruit Extremities: 2+ LE edema Skin: normal turgor Neurological: no focal deficits Musculoskeletal: normal tone Psychiatric: normal affect, normal behavior Hosp A/P (1) Acute respiratory failure with hypoxia Code(s): J96.01 - ACUTE RESPIRATORY FAILURE WITH HYPOXIA Status: Acute (2) Decompensated heart failure Code(s): I50.9 - HEART FAILURE, UNSPECIFIED Status: Acute (3) Diabetes mellitus Code(s): E11.9 - TYPE 2 DIABETES MELLITUS WITHOUT COMPLICATIONS Status: Chronic Qualifiers: Diabetes mellitus type: type 2 (4) Pneumonia Code(s): J18.9 - PNEUMONIA, UNSPECIFIED ORGANISM Status: Suspected Qualifiers: Pneumonia type: due to unspecified organism (5) CHF exacerbation Code(s): I50.9 - HEART FAILURE, UNSPECIFIED Status: Acute (6) CAD (coronary artery disease) Code(s): I25.10 - ATHSCL HEART DISEASE OF [place] CORONARY ARTERY W/O ANG PCTRS Status: Chronic Qualifiers: Coronary Disease-Associated Artery/Lesion type: bypass graft [place] vs. transplanted heart: [place] heart Associated angina: angina presence unspecified Qualified Code(s): I25.810 - Atherosclerosis of coronary artery bypass graft(s) without angina pectoris (7) DM2 (diabetes mellitus, type 2) Status: Chronic Qualifiers: Diabetes mellitus rn long term care insulin use: without fci use Diabetes mellitus complication status: without complication Qualified Code(s): E11.9 - Type 2 diabetes mellitus without complications (8) HTN (hypertension) Code(s): I10 - ESSENTIAL (PRIMARY) HYPERTENSION Status: Chronic Qualifiers: Hypertension type: essential hypertension Qualified Code(s): I10 - Essential (primary) hypertension (9) Myocardial infarction Code(s): I21.9 - ACUTE MYOCARDIAL INFARCTION, UNSPECIFIED Status: Acute Qualifiers: Myocardial infarction type: type 2 Qualified Code(s): I21.A1 - Myocardial infarction type 2 (10) CKD (chronic kidney disease), stage III Code(s): N18.3 - CHRONIC KIDNEY DISEASE, STAGE 3 (MODERATE) Status: Acute (11) Morbid obesity Code(s): E66.01 - MORBID (SEVERE) OBESITY DUE TO EXCESS CALORIES Status: Acute - Plan Acute Hypoxic Resp Failure / Pneumonia: Had fever and SOB. Leukocytosis. CXR clear. Diagnosed with pneumonia and treated with Rocephin and azithro. WBC normalized. Afeb. Symptoms resolved. Can change to PO anytime. May need to avoid quinolones with her CM. CHF: hx of ischemic CM. Likely systolic. Echo pending. She was on Coreg and Lasix at home, but not getting much result. Has not voided a great deal here with IV lasix BID. Await results of echo to determine best course of management as the BNP was only modestly elevated. Possible the edema is non-cardiogenic. HTN: BP still elevated. Low dose of Coreg. May need to increase dose of the Coreg and consider afterload reduction pending echo. DM: Blood sugars are tolerable given the setting. NSTEMI type 2: Trops trended down. CKD III: GFR at baseline.
[2019-11-27] MEDS: Carvedilol 6.25 MG TAB PO SCH (16:48)
[2019-11-27] MEDS: cefTRIAXone\\ROCEPHIN 1 GM in Sodium Chloride 0.9% 100 ML IVPB SCH (21:28)
[2019-11-27] MEDS: Atorvastatin Calcium 40 MG TAB PO SCH (21:30)
[2019-11-27] MEDS: Insulin Glargine 10 UNITS in Pre-Filled Syringe 1 EACH SC SCH (21:30)
[2019-11-27] MEDS: traZODone HCl 50 MG TAB PO SCH (21:30)
[2019-11-28 04:34] VITALS: BMI 42.7
[2019-11-28 05:05] LABS: Anion Gap 13 mmol/L (10-20); BUN (Urea Nitrogen) 15 mg/dL (9.8-20.1); Calc. Creatinine Clearance 132 mL/min (70-130); Calcium 9.2 mg/dL (7.8-10.44); Carbon Dioxide 24 mmol/L (23-31); Cardiac Risk 4.1 (Less than 4.5); Chloride 102 mmol/L (98-107); Cholesterol 226 mg/dl (< 200 Desired); Estimated GFR-MDRD 73; Glucose 195 mg/dL (80-115); HDL Cholesterol 55 mg/dL (>60 Neg Risk); LDL Cholesterol, Calculated 140 mg/dL; Potassium 4.4 mmol/L (3.5-5.1); Sodium 135 mmol/L (136-145); Triglycerides 157 mg/dL (Less than 150)
[2019-11-28] MEDS: HumaLOG 300 UNITS/3 ML VIAL SC PRN (05:48)
[2019-11-28] MEDS: Furosemide 40 MG/4 ML VIAL SLOW IVP SCH (05:49)
[2019-11-28 08:06] VITALS: BP 159/70; TEMP 97.9
[2019-11-28] MEDS: Carvedilol 6.25 MG TAB PO SCH (09:25)
[2019-11-28] MEDS: glipiZIDE 5 MG TAB PO SCH (09:25)
[2019-11-28] MEDS: Azithromycin 250 MG TAB PO SCH (09:26)
[2019-11-28] MEDS: busPIRone HCl 5 MG TAB PO SCH (09:26)
[2019-11-28] MEDS: Famotidine 20 MG TAB PO SCH (09:26)
[2019-11-28] MEDS: Aspirin 325 mg Enteric Coated Tablet PO SCH (09:26)
[2019-11-28] MEDS: Enoxaparin Sodium 40 MG/0.4 ML SYRINGE SC SCH (09:26)
[2019-11-28] MEDS: risperiDONE 3 MG TAB PO SCH (09:27)
[2019-11-28] MEDS: FLUoxetine HCl 20 MG CAP PO SCH (09:27)
[2019-11-28] MEDS: Polyethylene Glycol 3350 17 GM Packet PO SCH (09:28)
[2019-11-28] MEDS ORDERED: Atorvastatin Calcium 40 MG TAB PO SCH (21:00)
--- NOTE | 2019-11-29 01:50 | DIS ---
DATE OF ADMISSION: 11/24/2019 DATE OF DISCHARGE: 11/28/2019 DISCHARGE DIAGNOSES: 1. Sepsis. 2. Pneumonia. 3. Acute hypoxic respiratory failure. 4. [id number] systolic congestive heart failure. 5. Coronary artery disease. 6. Ischemic cardiomyopathy with ejection fraction of 45% to 50%. 7. Diabetes mellitus. 8. Morbid obesity. HISTORY OF PRESENT ILLNESS: This patient is a 59-year-old female, who presented to the hospital via the emergency department in [place] initially reporting shortness of breath for 2 days and a nonproductive cough as well as worsening lower extremity edema. She had initial temperature of 102.2 and a chest x-ray initially concerning for possible pneumonia, although there was no significant definable infiltrates. HOSPITAL COURSE: The patient was admitted to the hospital and she had a COVID test, which returned negative. She had consultation with Cardiology and aggressive diuresis and echocardiogram performed, which revealed an ejection fraction of 45 % to 50%. Once the patient had defervesced with antibiotics, she was changed to oral antibiotics. She had improvement of her respiratory status and no longer required oxygen. Some medication adjustments were made in consultation with Cardiology; however, it was ultimately discovered that the patient likely had not been taking her carvedilol or her statin as she was supposed to prior to admission. Therefore, it was felt that she would resume those along with her usual diuretic and have followup on the day of discharge. PHYSICAL EXAMINATION: VITAL SIGNS: Temperature is 97.9, pulse 85, respirations 18, O2 saturation 94% on room air, BP is 159/70. GENERAL: She is awake and alert. HEART: Regular. LUNGS: Clear. ABDOMEN: Benign. EXTREMITIES: Had persistent 1 to 2+ pitting edema. DISPOSITION: The patient is discharged to home. ACTIVITY: As tolerated. DIET: She will stay on a heart healthy, low-sodium diet. MEDICATIONS: 1. Carvedilol 6.25 b.i.d. 2. Lasix 40 mg daily. 3. Aspirin 325 daily. 4. Glipizide 10 mg b.i.d. 5. Melatonin 5 mg at bedtime p.r.n. 6. Risperdal 1.5 mg b.i.d. 7. Fluoxetine 60 mg daily. 8. Trazodone 50 mg at bedtime. 9. BuSpar 5 mg b.i.d. 10. Atorvastatin 40 mg at bedtime. FOLLOWUP: She is to follow up with Dr. Mancia and Amber Alcaraz NP at [facility] and she can return to the hospital at anytime should she have the need to do so. TIME SPENT: Time spent in discharge activities was greater than 30 minutes. Job ID: [id number] [id number]
== END 2019-11-28 10:45 | disposition home or self-care (01) | DRG 871 ==
LOC: ERS 21:56 → 2SW 23:42
PROVIDERS: ADMIT Internal Medicine; ATTEND Internal Medicine
PROC: 8E0ZXY6 Isolation (ICD-10-PCS; principal; 2019-11-24)
DX: A41.9 Sepsis, unspecified organism (principal); J18.9 Pneumonia, unspecified organism; J96.01 Acute respiratory failure with hypoxia; I50.23 Acute on chronic systolic (congestive) heart failure; I21.A1 Myocardial infarction type 2; J44.0 Chronic obstructive pulmonary disease with (acute) lower respiratory infection; Z68.41 Body mass index [BMI] 40.0-44.9, adult; I13.0 Hypertensive heart and chronic kidney disease with heart failure and stage 1 through stage 4 chronic kidney disease, or unspecified chronic kidney disease; Z20.828 Contact with and (suspected) exposure to other viral communicable diseases; I25.10 Atherosclerotic heart disease of native coronary artery without angina pectoris; I25.5 Ischemic cardiomyopathy; E66.01 Morbid (severe) obesity due to excess calories; F17.210 Nicotine dependence, cigarettes, uncomplicated; E78.5 Hyperlipidemia, unspecified; I48.0 Paroxysmal atrial fibrillation; F32.9 Major depressive disorder, single episode, unspecified; I34.0 Nonrheumatic mitral (valve) insufficiency; N18.3 Chronic kidney disease, stage 3 (moderate); E11.22 Type 2 diabetes mellitus with diabetic chronic kidney disease; Z79.84 Long term (current) use of oral hypoglycemic drugs; Z95.1 Presence of aortocoronary bypass graft; Z79.82 Long term (current) use of aspirin; Z79.899 Other long term (current) drug therapy; Z91.041 Radiographic dye allergy status
CPT/HCPCS: 36415; 36416; 80048; 80061; 82553; 83735; 84484; 85025; 93306; 96372; 99284; J0360; J0696; J1650; J1815; J1940; J3490

== ENCOUNTER 2020-09-02 09:45 | Inpatient (IN) | payer OTHER, SELFPAY ==
[2020-09-02 10:19] LABS: #Basophils 0.1 thou/uL (0.0-0.2); #Eosinphils 0.1 thou/uL (0.0-0.7); #Lymphocytes 1.8 thou/uL (1.20-3.40); #Monocytes 0.7 thou/uL (0.11-0.59); #Neutrophils 7.8 thou/uL (1.40-6.50); %Basophils 0.9 % (0.0-1.0); %Eosinophils 1.3 % (0.0-10.0); %Lymphocytes 16.8 % (21.0-51.0); %Monocytes 6.5 % (0.0-10.0); %Neutrophils 74.5 % (42.0-75.0); Hemoglobin 10.2 g/dL (12.0-16.0); Mean Corpuscular HGB CONC 32.9 g/dL (32.0-36.0); Mean Corpuscular Hemoglobin 28.6 pg (27.0-31.0); Mean Corpuscular Volume 86.8 fL (78.0-98.0); Mean Platelet Volume 6.6 fL (7.4-10.4); Platelet Count 340 thou/uL (130-400); RBC Distribution Width 11.3 % (11.5-14.5); Red Blood Cell (RBC) Count 3.56 mill/uL (4.20-5.40); White Blood Cell (WBC) Count 10.4 thou/uL (4.8-10.8)
[2020-09-02 10:41] LABS: ALT (SGPT) 12 U/L (8-55); AST (SGOT) 14 U/L (5-34); Albumin 3.2 g/dL (3.4-4.8); Alkaline Phosphatase 171 U/L (40-110); Anion Gap 16 mmol/L (10-20); BUN (Urea Nitrogen) 21 mg/dL (9.8-20.1); Bilirubin, Total 0.3 mg/dL (0.2-1.2); Calc. Creatinine Clearance 0 mL/min (70-130); Calcium 8.8 mg/dL (7.8-10.44); Carbon Dioxide 21 mmol/L (23-31); Chloride 101 mmol/L (98-107); Globulin 3.8 g/dL (2.4-3.5); Glucose 228 mg/dL (80-115); Lipase 14 U/L (8-78); Potassium 4.7 mmol/L (3.5-5.1); Sodium 133 mmol/L (136-145)
[2020-09-02] MEDS ORDERED: Nitroglycerin 0.4 MG TAB (25 Tab Bottle) SL PRN (12:49)
[2020-09-02] MEDS ORDERED: Aspirin 325 MG TAB PO SCH (13:00)
[2020-09-02] MEDS ORDERED: Sodium Chloride 0.9% 1,000 ML IV SCH (13:00)
[2020-09-02 13:35] LABS: Troponin I 0.021 ng/mL (< 0.028)
[2020-09-02 17:15] LABS: Troponin I 0.031 ng/mL (< 0.028)
[2020-09-02] MEDS: Heparin 5,000 UNITS/ML VIAL SC SCH ×2 (17:41→20:14)
[2020-09-02] MEDS: Carvedilol 6.25 MG TAB PO SCH (18:13)
[2020-09-02 18:47] VITALS: BMI 38.5
[2020-09-02] MEDS: busPIRone HCl 5 MG TAB PO SCH (20:14)
[2020-09-02] MEDS: Atorvastatin Calcium 40 MG TAB PO SCH (20:14)
[2020-09-03 00:53] LABS: SARS-CoV-2 PCR by NAA Not Detected (NotDetected)
[2020-09-03 05:00] LABS: #Basophils 0.1 thou/uL (0.0-0.2); #Eosinphils 0.2 thou/uL (0.0-0.7); #Lymphocytes 2.1 thou/uL (1.20-3.40); #Monocytes 0.5 thou/uL (0.11-0.59); #Neutrophils 5.4 thou/uL (1.40-6.50); %Basophils 0.9 % (0.0-1.0); %Eosinophils 2.1 % (0.0-10.0); %Lymphocytes 25.1 % (21.0-51.0); %Monocytes 6.2 % (0.0-10.0); %Neutrophils 65.7 % (42.0-75.0); Hemoglobin 9.9 g/dL (12.0-16.0); Mean Corpuscular HGB CONC 33.6 g/dL (32.0-36.0); Mean Corpuscular Hemoglobin 29.7 pg (27.0-31.0); Mean Corpuscular Volume 88.2 fL (78.0-98.0); Mean Platelet Volume 6.5 fL (7.4-10.4); Platelet Count 337 thou/uL (130-400); RBC Distribution Width 11.3 % (11.5-14.5); Red Blood Cell (RBC) Count 3.32 mill/uL (4.20-5.40); White Blood Cell (WBC) Count 8.2 thou/uL (4.8-10.8)
[2020-09-03 05:21] LABS: Anion Gap 11 mmol/L (10-20); BUN (Urea Nitrogen) 20 mg/dL (9.8-20.1); Calc. Creatinine Clearance 65 mL/min (70-130); Calcium 8.8 mg/dL (7.8-10.44); Carbon Dioxide 24 mmol/L (23-31); Chloride 105 mmol/L (98-107); Cholesterol 143 mg/dl (< 200 Desired); Glucose 127 mg/dL (80-115); HDL Cholesterol 47 mg/dL (>60 Neg Risk); LDL Cholesterol, Calculated 76 mg/dL; Potassium 4.5 mmol/L (3.5-5.1); Sodium 135 mmol/L (136-145); Triglycerides 99 mg/dL (Less than 150)
[2020-09-03] MEDS ORDERED: FLU VACC QS2020-21(6MOS UP)/PF 60 MCG/0.5 ML SYRINGE IM ONE (09:00)
[2020-09-03] MEDS ORDERED: FLUoxetine HCl 20 MG CAP PO SCH ×2 (09:00→13:30)
[2020-09-03] MEDS ORDERED: hydrALAZINE 20 MG/ML VIAL SLOW IVP PRN (09:08)
[2020-09-03] MEDS ORDERED: Loperamide HCl 2 MG CAP PO PRN (09:08)
[2020-09-03] MEDS ORDERED: Bisacodyl 5 MG TAB PO PRN (09:08)
[2020-09-03] MEDS ORDERED: Loratadine 10 MG TAB PO PRN (09:08)
[2020-09-03] MEDS ORDERED: HYDROcodone/Acetaminophen 5/325 mg Tablet PO PRN (09:08)
[2020-09-03] MEDS ORDERED: Benzonatate 100 MG CAP PO PRN (09:08)
[2020-09-03] MEDS ORDERED: Sodium Chloride 0.65% Nasal 44 ML BOT EA NARE PRN (09:08)
[2020-09-03] MEDS ORDERED: Ondansetron ODT 4 MG TAB PO PRN (09:08)
[2020-09-03] MEDS ORDERED: GUAIFENESIN SF SOLN 200 MG/10 ML UDCUP PO PRN (09:08)
[2020-09-03] MEDS ORDERED: Cepastat Lozenges 1 LOZ PO PRN (09:08)
[2020-09-03] MEDS ORDERED: Senokot S 8.6-50 MG TAB PO PRN (09:08)
[2020-09-03] MEDS ORDERED: Ondansetron PF 4 MG/2 ML Vial IVP PRN (09:08)
[2020-09-03] MEDS ORDERED: Calcium Carbonate 500 MG ChewTAB PO PRN (09:08)
[2020-09-03] MEDS ORDERED: Zolpidem Tartrate 5 MG TAB PO PRN (09:08)
[2020-09-03] MEDS ORDERED: ADENOSINE 60 MG/20 ML VIAL ONE (10:24)
[2020-09-03] MEDS: Carvedilol 6.25 MG TAB PO SCH ×2 (12:15→16:47)
[2020-09-03] MEDS: busPIRone HCl 5 MG TAB PO SCH ×2 (12:15→13:22)
[2020-09-03] MEDS: Aspirin Chewable 81 MG TAB PO SCH (12:15)
[2020-09-03] MEDS: Heparin 5,000 UNITS/ML VIAL SC SCH ×3 (12:16→20:04)
[2020-09-03] MEDS ORDERED: Bupropion 150 MG XL TAB PO SCH (13:30)
[2020-09-03] MEDS: glipiZIDE 10 MG TAB PO SCH (16:47)
[2020-09-03] MEDS: Atorvastatin Calcium 40 MG TAB PO SCH (20:05)
[2020-09-03] MEDS: traZODone HCl 50 MG TAB PO SCH (20:05)
[2020-09-03] MEDS: Melatonin 3 MG TAB PO PRN (20:05)
[2020-09-03] MEDS ORDERED: buPROPion 75 MG TAB PO SCH (21:00)
[2020-09-04 06:30] LABS: #Basophils 0.1 thou/uL (0.0-0.2); #Eosinphils 0.2 thou/uL (0.0-0.7); #Lymphocytes 1.9 thou/uL (1.20-3.40); #Monocytes 0.4 thou/uL (0.11-0.59); #Neutrophils 5.2 thou/uL (1.40-6.50); %Eosinophils 3.1 % (0.0-10.0); %Lymphocytes 23.6 % (21.0-51.0); %Monocytes 5.6 % (0.0-10.0); %Neutrophils 66.6 % (42.0-75.0); Hemoglobin 9.9 g/dL (12.0-16.0); Mean Corpuscular HGB CONC 32.5 g/dL (32.0-36.0); Mean Corpuscular Hemoglobin 28.3 pg (27.0-31.0); Mean Platelet Volume 6.4 fL (7.4-10.4); Platelet Count 398 thou/uL (130-400); RBC Distribution Width 11.3 % (11.5-14.5); Red Blood Cell (RBC) Count 3.49 mill/uL (4.20-5.40); White Blood Cell (WBC) Count 7.8 thou/uL (4.8-10.8)
[2020-09-04 06:49] LABS: Anion Gap 13 mmol/L (10-20); BUN (Urea Nitrogen) 21 mg/dL (9.8-20.1); Calc. Creatinine Clearance 70 mL/min (70-130); Calcium 9.1 mg/dL (7.8-10.44); Carbon Dioxide 22 mmol/L (23-31); Chloride 104 mmol/L (98-107); Glucose 118 mg/dL (80-115); Potassium 4.3 mmol/L (3.5-5.1); Sodium 135 mmol/L (136-145)
[2020-09-04] MEDS: glipiZIDE 10 MG TAB PO SCH ×4 (09:00→16:27)
[2020-09-04] MEDS: Carvedilol 6.25 MG TAB PO SCH ×3 (09:14→16:28)
[2020-09-04] MEDS: Lisinopril 5 MG TAB PO SCH ×2 (09:15→10:19)
[2020-09-04] MEDS: Heparin 5,000 UNITS/ML VIAL SC SCH ×3 (09:15→21:38)
[2020-09-04] MEDS: FLUoxetine HCl 20 MG CAP PO SCH (10:14)
[2020-09-04] MEDS: Aspirin Chewable 81 MG TAB PO SCH (10:14)
[2020-09-04] MEDS: Aripiprazole 10 MG TAB PO SCH (10:18)
[2020-09-04] MEDS: Bupropion 150 MG XL TAB PO SCH (10:19)
[2020-09-04] MEDS ORDERED: diphenhydrAMINE 50 MG/ML VIAL IVP SCH (18:00)
[2020-09-04] MEDS ORDERED: Famotidine 20 MG TAB PO SCH (18:00)
[2020-09-04] MEDS ORDERED: Famotidine/PF 20 mg/2ml Vial SLOW IVP SCH (19:30)
[2020-09-04] MEDS ORDERED: Communication Order-Pharmacy FS SCH (19:30)
[2020-09-04] MEDS ORDERED: diphenhydrAMINE 50 MG CAP PO SCH (19:30)
[2020-09-04] MEDS: predniSONE 50 MG TAB PO SCH (21:37)
[2020-09-04] MEDS: Atorvastatin Calcium 40 MG TAB PO SCH (21:38)
[2020-09-04] MEDS: traZODone HCl 50 MG TAB PO SCH (21:38)
[2020-09-04] MEDS: Melatonin 3 MG TAB PO PRN (21:58)
[2020-09-05 05:28] LABS: #Lymphocytes 0.7 thou/uL (1.20-3.40); #Monocytes 0.1 thou/uL (0.11-0.59); #Neutrophils 6.9 thou/uL (1.40-6.50); %Basophils 0.4 % (0.0-1.0); %Eosinophils 0.3 % (0.0-10.0); %Lymphocytes 9.6 % (21.0-51.0); %Monocytes 1.1 % (0.0-10.0); %Neutrophils 88.7 % (42.0-75.0); Anion Gap 13 mmol/L (10-20); BUN (Urea Nitrogen) 26 mg/dL (9.8-20.1); Calc. Creatinine Clearance 70 mL/min (70-130); Calcium 9.3 mg/dL (7.8-10.44); Carbon Dioxide 23 mmol/L (23-31); Chloride 101 mmol/L (98-107); Glucose 297 mg/dL (80-115); Hemoglobin 10.5 g/dL (12.0-16.0); Mean Corpuscular HGB CONC 33.3 g/dL (32.0-36.0); Mean Corpuscular Hemoglobin 29.3 pg (27.0-31.0); Mean Platelet Volume 6.5 fL (7.4-10.4); Platelet Count 401 thou/uL (130-400); RBC Distribution Width 11.4 % (11.5-14.5); Red Blood Cell (RBC) Count 3.58 mill/uL (4.20-5.40); Sodium 132 mmol/L (136-145); White Blood Cell (WBC) Count 7.8 thou/uL (4.8-10.8)
[2020-09-05] MEDS: glipiZIDE 10 MG TAB PO SCH ×2 (06:02→16:46)
[2020-09-05] MEDS: Lisinopril 5 MG TAB PO SCH (06:03)
[2020-09-05] MEDS: FLUoxetine HCl 20 MG CAP PO SCH (06:03)
[2020-09-05] MEDS: Aripiprazole 10 MG TAB PO SCH (06:03)
[2020-09-05] MEDS: predniSONE 50 MG TAB PO SCH (06:04)
[2020-09-05] MEDS: Carvedilol 6.25 MG TAB PO SCH ×2 (06:04→16:48)
[2020-09-05] MEDS: Aspirin Chewable 81 MG TAB PO SCH (06:04)
[2020-09-05] MEDS: Bupropion 150 MG XL TAB PO SCH (06:04)
[2020-09-05] MEDS: Heparin 5,000 UNITS/ML VIAL SC SCH ×2 (09:18→13:36)
[2020-09-05] MEDS ORDERED: Sodium Chloride 0.9% 1,000 ML IV SCH ×3 (10:00→21:00)
[2020-09-05] MEDS ORDERED: Protamine Sulfate 50 MG/5 ML VIAL ONE (14:21)
[2020-09-05] MEDS ORDERED: Heparin 10,000 UNITS/ 10 ML VIAL ONE (14:21)
[2020-09-05] MEDS ORDERED: Nitroglycerin 0.4 MG TAB (25 Tab Bottle) SL PRN (15:02)
[2020-09-05] MEDS ORDERED: Acetaminophen/Codeine 30-300mg Tablet PO PRN ×2 (15:02)
[2020-09-05] MEDS ORDERED: Sodium Chloride 0.9% 200 ML IV PRN (15:02)
[2020-09-05] MEDS ORDERED: Iopamidol 370 76% 50 ML VIAL FS ONE (17:41)
[2020-09-05] MEDS ORDERED: Iopamidol 370 76% 100 ML VIAL ONE (17:41)
[2020-09-05] MEDS: traZODone HCl 50 MG TAB PO SCH (20:30)
[2020-09-05] MEDS ORDERED: Atorvastatin Calcium 40 MG TAB PO SCH (21:00)
[2020-09-06] MEDS ORDERED: Sodium Chloride 0.9% 1,000 ML IV SCH (00:01)
[2020-09-06 05:38] LABS: #Basophils 0.1 thou/uL (0.0-0.2); #Lymphocytes 2.1 thou/uL (1.20-3.40); #Monocytes 0.8 thou/uL (0.11-0.59); #Neutrophils 9.1 thou/uL (1.40-6.50); %Basophils 0.4 % (0.0-1.0); %Eosinophils 0.3 % (0.0-10.0); %Lymphocytes 17.7 % (21.0-51.0); %Monocytes 6.2 % (0.0-10.0); %Neutrophils 75.4 % (42.0-75.0); Hemoglobin 9.3 g/dL (12.0-16.0); Mean Corpuscular HGB CONC 32.6 g/dL (32.0-36.0); Mean Corpuscular Hemoglobin 28.3 pg (27.0-31.0); Mean Corpuscular Volume 86.7 fL (78.0-98.0); Mean Platelet Volume 6.4 fL (7.4-10.4); Platelet Count 427 thou/uL (130-400); RBC Distribution Width 11.3 % (11.5-14.5); White Blood Cell (WBC) Count 12.1 thou/uL (4.8-10.8)
[2020-09-06 05:56] LABS: Anion Gap 12 mmol/L (10-20); BUN (Urea Nitrogen) 20 mg/dL (9.8-20.1); Calc. Creatinine Clearance 84 mL/min (70-130); Calcium 9.1 mg/dL (7.8-10.44); Carbon Dioxide 22 mmol/L (23-31); Chloride 106 mmol/L (98-107); Glucose 82 mg/dL (80-115); Sodium 136 mmol/L (136-145)
[2020-09-06] MEDS: Aspirin Chewable 81 MG TAB PO SCH (09:11)
[2020-09-06] MEDS: Aripiprazole 10 MG TAB PO SCH (09:12)
[2020-09-06] MEDS: Bupropion 150 MG XL TAB PO SCH (09:12)
[2020-09-06] MEDS: Lisinopril 5 MG TAB PO SCH (09:14)
[2020-09-06] MEDS: glipiZIDE 10 MG TAB PO SCH (09:15)
[2020-09-06] MEDS: Carvedilol 6.25 MG TAB PO SCH (09:15)
[2020-09-06] MEDS: FLUoxetine HCl 20 MG CAP PO SCH (09:16)
[2020-09-06 12:28] VITALS: BP 114/54; TEMP 98
== END 2020-09-06 14:23 | disposition home or self-care (01) | DRG 287 ==
LOC: ERS 09:45 → 3SE 12:33 → OBSVTOIN 09-04 11:42
PROVIDERS: ADMIT Internal Medicine; ATTEND Internal Medicine
PROC: B2111ZZ Fluoroscopy of Multiple Coronary Arteries using Low Osmolar Contrast (ICD-10-PCS; principal; 2020-09-05)
PROC: B2121ZZ Fluoroscopy of Single Coronary Artery Bypass Graft using Low Osmolar Contrast (ICD-10-PCS; 2020-09-05)
PROC: 4A023N7 Measurement of Cardiac Sampling and Pressure, Left Heart, Percutaneous Approach (ICD-10-PCS; 2020-09-05)
DX: I25.700 Atherosclerosis of coronary artery bypass graft(s), unspecified, with unstable angina pectoris (principal); N17.9 Acute kidney failure, unspecified; I13.0 Hypertensive heart and chronic kidney disease with heart failure and stage 1 through stage 4 chronic kidney disease, or unspecified chronic kidney disease; R07.89 Other chest pain; I50.9 Heart failure, unspecified; N18.30 Chronic kidney disease, stage 3 unspecified; E11.22 Type 2 diabetes mellitus with diabetic chronic kidney disease; I48.0 Paroxysmal atrial fibrillation; E66.01 Morbid (severe) obesity due to excess calories; E78.00 Pure hypercholesterolemia, unspecified; I25.5 Ischemic cardiomyopathy; Z20.822 Contact with and (suspected) exposure to COVID-19; F32.9 Major depressive disorder, single episode, unspecified; F17.210 Nicotine dependence, cigarettes, uncomplicated; E78.5 Hyperlipidemia, unspecified; Z79.82 Long term (current) use of aspirin; Z95.1 Presence of aortocoronary bypass graft; Z95.5 Presence of coronary angioplasty implant and graft; Z91.048 Other nonmedicinal substance allergy status; Z79.899 Other long term (current) drug therapy; Z68.38 Body mass index [BMI] 38.0-38.9, adult; Z82.49 Family history of ischemic heart disease and other diseases of the circulatory system; Z83.3 Family history of diabetes mellitus; Z79.84 Long term (current) use of oral hypoglycemic drugs; I25.2 Old myocardial infarction; Z98.890 Other specified postprocedural states
CPT/HCPCS: 36415; 36416; 71045; 76942; 78452; 80048; 80053; 80061; 83690; 83735; 83880; 84443; 84484; 85025; 85347; 87635; 90471; 90662; 93005; 93017; 93459; 93798; 94760; A9500; G0008; G0378; J0153; J1644; J2720; J7512; Q9967; U0003; U0005

== ENCOUNTER 2020-11-11 14:03 | Emergency (ER) | payer OTHER, SELFPAY ==
[2020-11-11 15:20] LABS: #Basophils 0.1 thou/uL (0.0-0.2); #Eosinphils 0.1 thou/uL (0.0-0.7); #Lymphocytes 1.4 thou/uL (1.20-3.40); #Monocytes 0.6 thou/uL (0.11-0.59); #Neutrophils 5.2 thou/uL (1.40-6.50); %Basophils 0.8 % (0.0-1.0); %Eosinophils 1.7 % (0.0-10.0); %Lymphocytes 19.2 % (21.0-51.0); %Monocytes 8.1 % (0.0-10.0); %Neutrophils 70.1 % (42.0-75.0); Hemoglobin 9.9 g/dL (12.0-16.0); Mean Corpuscular HGB CONC 32.5 g/dL (32.0-36.0); Mean Corpuscular Hemoglobin 28.4 pg (27.0-31.0); Mean Corpuscular Volume 87.2 fL (78.0-98.0); Mean Platelet Volume 7.1 fL (7.4-10.4); Platelet Count 284 thou/uL (130-400); RBC Distribution Width 12.8 % (11.5-14.5); White Blood Cell (WBC) Count 7.4 thou/uL (4.8-10.8)
[2020-11-11 15:40] LABS: ALT (SGPT) 12 U/L (8-55); AST (SGOT) 16 U/L (5-34); Albumin 3.1 g/dL (3.4-4.8); Alkaline Phosphatase 126 U/L (40-110); Anion Gap 13 mmol/L (10-20); BUN (Urea Nitrogen) 29 mg/dL (9.8-20.1); Bilirubin, Total 0.2 mg/dL (0.2-1.2); Calc. Creatinine Clearance 0 mL/min (70-130); Calcium 8.8 mg/dL (7.8-10.44); Carbon Dioxide 22 mmol/L (23-31); Chloride 107 mmol/L (98-107); Globulin 3.5 g/dL (2.4-3.5); Glucose 247 mg/dL (80-115); Potassium 4.7 mmol/L (3.5-5.1); Protein, Total 6.6 g/dL (5.8-8.1); Sodium 137 mmol/L (136-145)
== END 2020-11-11 18:14 | disposition home or self-care (01) ==
LOC: ERS 14:03
DX: E86.0 Dehydration (principal); E11.40 Type 2 diabetes mellitus with diabetic neuropathy, unspecified; I11.0 Hypertensive heart disease with heart failure; I50.9 Heart failure, unspecified; Z87.891 Personal history of nicotine dependence; Z79.82 Long term (current) use of aspirin; Z79.899 Other long term (current) drug therapy; W01.0XXA Fall on same level from slipping, tripping and stumbling without subsequent striking against object, initial encounter
CPT/HCPCS: 36415; 70450; 80053; 85025; 93005

== ENCOUNTER 2021-07-02 13:53 | Emergency (ER) | payer MEDICARE ==
[2021-07-02 16:32] LABS: #Basophils 0.1 thou/uL (0.0-0.2); #Eosinphils 0.3 thou/uL (0.0-0.7); #Lymphocytes 1.8 thou/uL (1.20-3.40); #Monocytes 0.5 thou/uL (0.11-0.59); #Neutrophils 4.3 thou/uL (1.40-6.50); %Basophils 0.9 % (0.0-1.0); %Eosinophils 3.8 % (0.0-10.0); %Lymphocytes 25.5 % (21.0-51.0); %Monocytes 7.4 % (0.0-10.0); %Neutrophils 62.4 % (42.0-75.0); Hemoglobin 10.2 g/dL (12.0-16.0); Mean Corpuscular HGB CONC 32.8 g/dL (32.0-36.0); Mean Corpuscular Hemoglobin 28.9 pg (27.0-31.0); Mean Corpuscular Volume 88.2 fL (78.0-98.0); Platelet Count 260 thou/uL (130-400); RBC Distribution Width 13.9 % (11.5-14.5); Red Blood Cell (RBC) Count 3.52 mill/uL (4.20-5.40); White Blood Cell (WBC) Count 6.9 thou/uL (4.8-10.8)
[2021-07-02 16:53] LABS: ALT (SGPT) 17 U/L (8-55); AST (SGOT) 20 U/L (5-34); Albumin 3.1 g/dL (3.4-4.8); Alkaline Phosphatase 129 U/L (40-110); Anion Gap 11 mmol/L (10-20); BUN (Urea Nitrogen) 24 mg/dL (9.8-20.1); Bilirubin, Total 0.2 mg/dL (0.2-1.2); Calc. Creatinine Clearance 0 mL/min (70-130); Calcium 8.7 mg/dL (7.8-10.44); Carbon Dioxide 23 mmol/L (23-31); Chloride 107 mmol/L (98-107); Globulin 3.5 g/dL (2.4-3.5); Glucose 203 mg/dL (80-115); Potassium 4.3 mmol/L (3.5-5.1); Protein, Total 6.6 g/dL (5.8-8.1); Sodium 137 mmol/L (136-145)
[2021-07-02 18:18] LABS: Bilirubin Negative (Negative); Blood, Urine Trace (Negative); Clarity Turbid (Clear); Glucose, Urine (Dipstick) Normal (Negative); Ketone, Urine Negative (Negative); Leukocyte 500 Leu/uL (Negative); Nitrite Negative (Negative); Protein, Urine (Dipstick) Negative (Neg-Trace); RBC/HPF 0-3 HPF (0-3); Specific Gravity, Urine 1.009 (1.002-1.036); Urobilinogen Normal mg/dL (Less than 2); pH, Urine 5.5 (5.0-9.0)
[2021-07-02 18:29] LABS: Bacteria/HPF 2+ HPF (None Seen)
== END 2021-07-02 18:56 | disposition home or self-care (01) ==
LOC: ERS 13:53
DX: R41.3 Other amnesia (principal); I11.0 Hypertensive heart disease with heart failure; I50.9 Heart failure, unspecified; E11.9 Type 2 diabetes mellitus without complications; I25.10 Atherosclerotic heart disease of native coronary artery without angina pectoris
CPT/HCPCS: 36415; 70450; 80053; 81003; 81015; 85025; 87086

== ENCOUNTER 2022-02-23 15:17 | Inpatient (IN) | payer MEDICARE ==
[2022-02-23 16:24] LABS: #Basophils 0.1 thou/uL (0.0-0.2); #Eosinphils 0.2 thou/uL (0.0-0.7); #Lymphocytes 1.8 thou/uL (1.20-3.40); #Monocytes 0.6 thou/uL (0.11-0.59); #Neutrophils 5.3 thou/uL (1.40-6.50); %Basophils 1.4 % (0.0-1.0); %Lymphocytes 21.7 % (21.0-51.0); %Monocytes 7.8 % (0.0-10.0); %Neutrophils 66.1 % (42.0-75.0); Hemoglobin 10.6 g/dL (12.0-16.0); Mean Corpuscular HGB CONC 32.9 g/dL (32.0-36.0); Mean Corpuscular Volume 91.3 fL (78.0-98.0); Mean Platelet Volume 7.3 fL (7.4-10.4); Platelet Count 238 thou/uL (130-400); RBC Distribution Width 13.1 % (11.5-14.5); Red Blood Cell (RBC) Count 3.53 mill/uL (4.20-5.40)
[2022-02-23 16:51] LABS: ALT (SGPT) 15 U/L (8-55); AST (SGOT) 19 U/L (5-34); Albumin 2.6 g/dL (3.4-4.8); Alkaline Phosphatase 122 U/L (40-110); Anion Gap 11 mmol/L (10-20); BUN (Urea Nitrogen) 24 mg/dL (9.8-20.1); Bilirubin, Total 0.2 mg/dL (0.2-1.2); Calc. Creatinine Clearance 0 mL/min (70-130); Calcium 9.2 mg/dL (7.8-10.44); Carbon Dioxide 28 mmol/L (23-31); Chloride 102 mmol/L (98-107); Estimated GFR 65; Globulin 3.4 g/dL (2.4-3.5); Glucose 361 mg/dL (80-115); Potassium 4.5 mmol/L (3.5-5.1); Sodium 136 mmol/L (136-145)
[2022-02-23 17:18] LABS: CKMB 3.8 ng/mL (0-6.6)
[2022-02-23] MEDS ORDERED: Furosemide 40 MG/4 ML VIAL ONE (17:59)
[2022-02-23 19:59] LABS: Critical Call Chem Troponin I RESULT DECREASING
[2022-02-23] MEDS ORDERED: Ondansetron PF 4 MG/2 ML Vial IVP PRN (20:05)
[2022-02-23] MEDS ORDERED: Acetaminophen 325 MG TAB PO PRN (20:05)
[2022-02-23] MEDS ORDERED: Melatonin 3 MG TAB PO PRN (20:08)
[2022-02-23] MEDS ORDERED: Dextrose 50% Abboject 50 ML SYRINGE SLOW IVP PRN (20:09)
[2022-02-23] MEDS ORDERED: Dextrose 5% in Water 1,000 ML IV PRN (20:09)
[2022-02-23] MEDS ORDERED: Aspirin Chewable 81 MG TAB PO SCH (20:30)
[2022-02-23 20:56] VITALS: BMI 43.4
[2022-02-23] MEDS ORDERED: hydrOXYzine 25 MG TAB PO SCH (21:00)
[2022-02-23] MEDS: Furosemide 40 MG/4 ML VIAL SLOW IVP SCH (21:28)
[2022-02-23] MEDS: Heparin 5,000 UNITS/ML VIAL SC SCH (21:29)
[2022-02-23] MEDS: Atorvastatin Calcium 40 MG TAB PO SCH (21:29)
[2022-02-23] MEDS: traZODone HCl 50 MG TAB PO SCH (21:29)
[2022-02-23 21:48] LABS: Glucose 355 mg/dL (80-115)
[2022-02-23] MEDS: Fioricet 325/50/40 mg Tablet PO PRN (22:00)
[2022-02-23] MEDS: HumaLOG 300 UNITS/3 ML VIAL SC PRN (22:01)
[2022-02-24] MEDS: Aspirin Chewable 81 MG TAB PO SCH (09:00)
[2022-02-24] MEDS: FLUoxetine HCl 20 MG CAP PO SCH (09:00)
[2022-02-24] MEDS ORDERED: Lisinopril 5 MG TAB PO SCH (09:00)
[2022-02-24] MEDS: Bupropion 150 MG XL TAB PO SCH (09:01)
[2022-02-24] MEDS: Carvedilol 6.25 MG TAB PO SCH ×2 (09:02→17:22)
[2022-02-24] MEDS: Heparin 5,000 UNITS/ML VIAL SC SCH ×2 (09:02→21:00)
[2022-02-24] MEDS: Aripiprazole 10 MG TAB PO SCH (09:02)
[2022-02-24] MEDS: glipiZIDE 5 MG TAB PO SCH ×2 (09:03→17:22)
[2022-02-24] MEDS: Furosemide 40 MG/4 ML VIAL SLOW IVP SCH (09:03)
[2022-02-24 09:31] LABS: Anion Gap 8 mmol/L (10-20); BUN (Urea Nitrogen) 21 mg/dL (9.8-20.1); Calc. Creatinine Clearance 127 mL/min (70-130); Calcium 9.1 mg/dL (7.8-10.44); Carbon Dioxide 31 mmol/L (23-31); Cardiac Risk 3.3 (Less than 4.5); Chloride 103 mmol/L (98-107); Cholesterol 264 mg/dl (< 200 Desired); Estimated GFR 80; Glucose 201 mg/dL (80-115); HDL Cholesterol 79 mg/dL (>60 Neg Risk); LDL Cholesterol, Calculated 163 mg/dL; Sodium 138 mmol/L (136-145); Triglycerides 109 mg/dL (Less than 150)
[2022-02-24 09:39] LABS: #Eosinphils 0.2 thou/uL (0.0-0.7); #Lymphocytes 1.7 thou/uL (1.20-3.40); #Monocytes 0.7 thou/uL (0.11-0.59); #Neutrophils 4.9 thou/uL (1.40-6.50); %Basophils 0.7 % (0.0-1.0); %Eosinophils 2.7 % (0.0-10.0); %Monocytes 8.6 % (0.0-10.0); Hemoglobin 10.7 g/dL (12.0-16.0); Mean Corpuscular HGB CONC 31.8 g/dL (32.0-36.0); Mean Corpuscular Hemoglobin 28.7 pg (27.0-31.0); Mean Corpuscular Volume 90.2 fL (78.0-98.0); Mean Platelet Volume 7.7 fL (7.4-10.4); Platelet Count 264 thou/uL (130-400); RBC Distribution Width 13.2 % (11.5-14.5); Red Blood Cell (RBC) Count 3.72 mill/uL (4.20-5.40); White Blood Cell (WBC) Count 7.5 thou/uL (4.8-10.8)
[2022-02-24] MEDS ORDERED: Furosemide 40 MG/4 ML VIAL SLOW IVP SCH ×2 (09:52→10:00)
[2022-02-24] MEDS ORDERED: Furosemide 100 MG/10 ML VIAL SLOW IVP SCH (10:00)
[2022-02-24] MEDS: Furosemide 100 MG/10 ML VIAL SLOW IVP SCH (17:22)
[2022-02-24] MEDS: traZODone HCl 50 MG TAB PO SCH (21:00)
[2022-02-24] MEDS: Atorvastatin Calcium 40 MG TAB PO SCH (21:00)
[2022-02-24] MEDS: HumaLOG 300 UNITS/3 ML VIAL SC PRN (21:16)
[2022-02-24] MEDS: Fioricet 325/50/40 mg Tablet PO PRN (21:36)
[2022-02-25 04:50] LABS: Anion Gap 10 mmol/L (10-20); BUN (Urea Nitrogen) 26 mg/dL (9.8-20.1); Calc. Creatinine Clearance 85 mL/min (70-130); Calcium 8.9 mg/dL (7.8-10.44); Carbon Dioxide 29 mmol/L (23-31); Chloride 102 mmol/L (98-107); Estimated GFR 49; Glucose 146 mg/dL (80-115); Sodium 137 mmol/L (136-145)
[2022-02-25] MEDS: Furosemide 100 MG/10 ML VIAL SLOW IVP SCH (05:37)
[2022-02-25] MEDS: Heparin 5,000 UNITS/ML VIAL SC SCH ×2 (09:17→20:26)
[2022-02-25] MEDS: glipiZIDE 5 MG TAB PO SCH ×2 (09:22→15:59)
[2022-02-25] MEDS: Aspirin Chewable 81 MG TAB PO SCH (09:23)
[2022-02-25] MEDS: Aripiprazole 10 MG TAB PO SCH (09:25)
[2022-02-25] MEDS: Carvedilol 6.25 MG TAB PO SCH ×2 (09:25→15:59)
[2022-02-25] MEDS: Bupropion 150 MG XL TAB PO SCH (09:26)
[2022-02-25] MEDS: Ezetimibe 10 MG TAB PO SCH (09:26)
[2022-02-25] MEDS: FLUoxetine HCl 20 MG CAP PO SCH (09:26)
[2022-02-25] MEDS: Gabapentin 100 MG CAP PO SCH (09:27)
[2022-02-25] MEDS: HumaLOG 300 UNITS/3 ML VIAL SC PRN (12:58)
[2022-02-25] MEDS: traZODone HCl 50 MG TAB PO SCH (20:27)
[2022-02-25] MEDS: Atorvastatin Calcium 40 MG TAB PO SCH (20:27)
[2022-02-25] MEDS: Fioricet 325/50/40 mg Tablet PO PRN (20:28)
[2022-02-26 04:58] LABS: #Basophils 0.1 thou/uL (0.0-0.2); #Eosinphils 0.3 thou/uL (0.0-0.7); #Lymphocytes 2.4 thou/uL (1.20-3.40); #Monocytes 0.6 thou/uL (0.11-0.59); #Neutrophils 3.4 thou/uL (1.40-6.50); %Basophils 1.1 % (0.0-1.0); %Eosinophils 4.4 % (0.0-10.0); %Lymphocytes 35.7 % (21.0-51.0); %Monocytes 9.1 % (0.0-10.0); %Neutrophils 49.7 % (42.0-75.0); Hemoglobin 9.4 g/dL (12.0-16.0); Mean Corpuscular HGB CONC 31.8 g/dL (32.0-36.0); Mean Corpuscular Hemoglobin 29.2 pg (27.0-31.0); Mean Corpuscular Volume 91.7 fL (78.0-98.0); Mean Platelet Volume 7.6 fL (7.4-10.4); Platelet Count 233 thou/uL (130-400); RBC Distribution Width 13.1 % (11.5-14.5); White Blood Cell (WBC) Count 6.9 thou/uL (4.8-10.8)
[2022-02-26 05:13] LABS: Anion Gap 10 mmol/L (10-20); BUN (Urea Nitrogen) 32 mg/dL (9.8-20.1); Calc. Creatinine Clearance 85 mL/min (70-130); Calcium 8.8 mg/dL (7.8-10.44); Carbon Dioxide 28 mmol/L (23-31); Chloride 102 mmol/L (98-107); Estimated GFR 52; Glucose 155 mg/dL (80-115); Potassium 4.2 mmol/L (3.5-5.1); Sodium 136 mmol/L (136-145)
[2022-02-26] MEDS: HumaLOG 300 UNITS/3 ML VIAL SC PRN (06:09)
[2022-02-26] MEDS: Bupropion 150 MG XL TAB PO SCH (08:32)
[2022-02-26] MEDS: FLUoxetine HCl 20 MG CAP PO SCH (08:32)
[2022-02-26] MEDS: glipiZIDE 5 MG TAB PO SCH ×2 (08:32→17:41)
[2022-02-26] MEDS: Ezetimibe 10 MG TAB PO SCH (08:33)
[2022-02-26] MEDS: Gabapentin 100 MG CAP PO SCH (08:33)
[2022-02-26] MEDS: Aripiprazole 10 MG TAB PO SCH (08:33)
[2022-02-26] MEDS: Aspirin Chewable 81 MG TAB PO SCH (08:33)
[2022-02-26] MEDS: Carvedilol 6.25 MG TAB PO SCH (08:33)
[2022-02-26] MEDS: Heparin 5,000 UNITS/ML VIAL SC SCH (08:36)
[2022-02-26 11:49] VITALS: BP 132/82; TEMP 97.6
[2022-02-27] MEDS ORDERED: Furosemide 20 MG TAB PO SCH (09:00)
== END 2022-02-26 16:40 | disposition home or self-care (01) | DRG 280 ==
LOC: ERS 15:17 → 2SW 18:16
PROVIDERS: ADMIT Hospitalist; ATTEND Hospitalist
DX: I11.0 Hypertensive heart disease with heart failure (principal); I50.23 Acute on chronic systolic (congestive) heart failure; I21.A1 Myocardial infarction type 2; J96.01 Acute respiratory failure with hypoxia; Z68.41 Body mass index [BMI] 40.0-44.9, adult; Z20.822 Contact with and (suspected) exposure to COVID-19; I25.10 Atherosclerotic heart disease of native coronary artery without angina pectoris; E66.01 Morbid (severe) obesity due to excess calories; E11.65 Type 2 diabetes mellitus with hyperglycemia; I48.0 Paroxysmal atrial fibrillation; R78.5 Finding of other psychotropic drug in blood; F32.A Depression, unspecified; E78.00 Pure hypercholesterolemia, unspecified; Z28.21 Immunization not carried out because of patient refusal; Z91.041 Radiographic dye allergy status; Z95.1 Presence of aortocoronary bypass graft; Z79.899 Other long term (current) drug therapy; Z79.82 Long term (current) use of aspirin; Z79.84 Long term (current) use of oral hypoglycemic drugs; Z87.891 Personal history of nicotine dependence; Z86.79 Personal history of other diseases of the circulatory system; Z90.710 Acquired absence of both cervix and uterus
CPT/HCPCS: 36415; 36416; 71046; 80048; 80053; 80061; 82553; 83880; 84484; 85025; 93005; 93306; 94760; 96374; J1644; J1815; J1940; J2405; U0003; U0005

== ENCOUNTER 2022-09-20 09:50 | Emergency (ER) | payer MEDICARE ==
[2022-09-20 10:25] LABS: Bacteria/HPF 1+ HPF (None Seen); Bilirubin Negative (Negative); Blood, Urine Negative (Negative); Clarity Clear (Clear); Glucose, Urine (Dipstick) Normal (Negative); Ketone, Urine Negative (Negative); Leukocyte 250 Leu/uL (Negative); Nitrite Negative (Negative); Protein, Urine (Dipstick) 100 mg/dL (Neg-Trace); RBC/HPF 0-3 HPF (0-3); Specific Gravity, Urine 1.012 (1.002-1.036); Squamous Epithelial 0-3 HPF (0-3); Urobilinogen Normal mg/dL (Less than 2); WBC/HPF 0-3 HPF (0-3)
[2022-09-20 10:39] LABS: ALT (SGPT) 11 U/L (8-55); AST (SGOT) 17 U/L (5-34); Albumin 3.2 g/dL (3.4-4.8); Alkaline Phosphatase 151 U/L (40-110); Anion Gap 15 mmol/L (10-20); BUN (Urea Nitrogen) 25 mg/dL (9.8-20.1); Bilirubin, Total 0.5 mg/dL (0.2-1.2); Calc. Creatinine Clearance 0 mL/min (70-130); Calcium 9.2 mg/dL (7.8-10.44); Carbon Dioxide 19 mmol/L (23-31); Chloride 105 mmol/L (98-107); Estimated GFR 38; Globulin 3.6 g/dL (2.4-3.5); Glucose 116 mg/dL (80-115); Lipase 7 U/L (8-78); Potassium 4.7 mmol/L (3.5-5.1); Protein, Total 6.8 g/dL (5.8-8.1); Sodium 134 mmol/L (136-145)
[2022-09-20 10:41] LABS: #Eosinphils 0.1 thou/uL (0.0-0.7); #Lymphocytes 1.4 thou/uL (1.20-3.40); #Monocytes 0.9 thou/uL (0.11-0.59); #Neutrophils 8.6 thou/uL (1.40-6.50); %Basophils 0.3 % (0.0-1.0); %Eosinophils 1.2 % (0.0-10.0); %Lymphocytes 12.3 % (21.0-51.0); %Monocytes 8.2 % (0.0-10.0); %Neutrophils 78.1 % (42.0-75.0); Hemoglobin 10.8 g/dL (12.0-16.0); Mean Corpuscular HGB CONC 33.1 g/dL (32.0-36.0); Mean Corpuscular Volume 90.4 fl (78.0-98.0); Mean Platelet Volume 8.9 fL (7.4-10.4); Platelet Count 197 10x3/uL (130-400); RBC Distribution Width 14.2 % (11.5-14.5); Red Blood Cell (RBC) Count 3.59 mill/uL (4.20-5.40); White Blood Cell (WBC) Count 11.1 10x3/uL (4.8-10.8)
[2022-09-20] MEDS ORDERED: Ondansetron PF 4 MG/2 ML Vial ONE (11:06)
[2022-09-20] MEDS ORDERED: Ketorolac Tromethamine 30 MG/ML VIAL ONE (12:30)
== END 2022-09-20 13:37 | disposition home or self-care (01) ==
LOC: ERS 09:50
DX: N39.0 Urinary tract infection, site not specified (principal); N20.0 Calculus of kidney; D72.829 Elevated white blood cell count, unspecified; J44.9 Chronic obstructive pulmonary disease, unspecified; I25.10 Atherosclerotic heart disease of native coronary artery without angina pectoris; E11.9 Type 2 diabetes mellitus without complications; I11.0 Hypertensive heart disease with heart failure; I50.9 Heart failure, unspecified; Z87.891 Personal history of nicotine dependence; Z79.82 Long term (current) use of aspirin
CPT/HCPCS: 36415; 74176; 80053; 81003; 81015; 83690; 85025; 96374; 96375; J1885; J2405

== ENCOUNTER 2022-09-22 10:29 | Inpatient (IN) | payer MEDICARE ==
[2022-09-22 11:10] LABS: #Eosinphils 0.1 thou/uL (0.0-0.7); #Lymphocytes 1.2 thou/uL (1.20-3.40); #Monocytes 0.7 thou/uL (0.11-0.59); #Neutrophils 8.1 thou/uL (1.40-6.50); %Basophils 0.5 % (0.0-1.0); %Eosinophils 1.1 % (0.0-10.0); %Monocytes 7.2 % (0.0-10.0); %Neutrophils 79.3 % (42.0-75.0); Hemoglobin 10.3 g/dL (12.0-16.0); Mean Corpuscular HGB CONC 32.1 g/dL (32.0-36.0); Mean Corpuscular Hemoglobin 29.4 pg (27.0-31.0); Mean Corpuscular Volume 91.8 fl (78.0-98.0); Mean Platelet Volume 6.5 fL (7.4-10.4); Platelet Count 385 10x3/uL (130-400); RBC Distribution Width 13.9 % (11.5-14.5); Red Blood Cell (RBC) Count 3.49 mill/uL (4.20-5.40); White Blood Cell (WBC) Count 10.2 10x3/uL (4.8-10.8)
[2022-09-22 11:25] LABS: ALT (SGPT) 10 U/L (8-55); AST (SGOT) 15 U/L (5-34); Alkaline Phosphatase 148 U/L (40-110); Anion Gap 12 mmol/L (10-20); BUN (Urea Nitrogen) 24 mg/dL (9.8-20.1); Bilirubin, Total 0.5 mg/dL (0.2-1.2); Calc. Creatinine Clearance 0 mL/min (70-130); Calcium 8.6 mg/dL (7.8-10.44); Carbon Dioxide 22 mmol/L (23-31); Chloride 107 mmol/L (98-107); Estimated GFR 51; Globulin 2.9 g/dL (2.4-3.5); Glucose 83 mg/dL (80-115); Potassium 4.5 mmol/L (3.5-5.1); Protein, Total 5.9 g/dL (5.8-8.1); Sodium 136 mmol/L (136-145)
[2022-09-22 11:47] LABS: CKMB 1.7 ng/mL (0-6.6)
[2022-09-22] MEDS ORDERED: Furosemide 40 MG/4 ML VIAL ONE (11:48)
[2022-09-22] MEDS ORDERED: Nitroglycerin 2% Ointment 1 INCH/1 GM Packet ONE (11:48)
[2022-09-22] MEDS ORDERED: Aspirin Chewable 81 MG TAB ONE (11:48)
[2022-09-22] MEDS ORDERED: Acetaminophen 650 MG Suppository PR PRN (12:50)
[2022-09-22] MEDS ORDERED: Ondansetron ODT 4 MG TAB PO PRN (12:50)
[2022-09-22] MEDS ORDERED: Acetaminophen 325 MG TAB PO PRN (12:50)
[2022-09-22] MEDS ORDERED: Ondansetron PF 4 MG/2 ML Vial IVP PRN (12:50)
[2022-09-22] MEDS ORDERED: Dextrose 50% Abboject 50 ML SYRINGE SLOW IVP PRN (13:00)
[2022-09-22] MEDS ORDERED: Insulin Regular 300 UNITS/3 ML VIAL SC PRN ×2 (13:00)
[2022-09-22] MEDS ORDERED: Dextrose 5% in Water 1,000 ML IV PRN (13:00)
[2022-09-22] MEDS ORDERED: Furosemide 40 MG/4 ML VIAL SLOW IVP SCH (14:00)
[2022-09-22 15:03] VITALS: BMI 25.0
[2022-09-22 15:36] LABS: Troponin I 0.101 ng/mL (< 0.028)
[2022-09-22 18:01] LABS: Troponin I 0.099 ng/mL (< 0.028)
[2022-09-22] MEDS: Furosemide 40 MG/4 ML VIAL SLOW IVP SCH (18:16)
[2022-09-23] MEDS ORDERED: Acetaminophen 325 MG TAB PO PRN (06:13)
[2022-09-23] MEDS ORDERED: Acetaminophen 650 MG Suppository PR PRN (06:14)
[2022-09-23] MEDS ORDERED: Ondansetron PF 4 MG/2 ML Vial IVP PRN (06:14)
[2022-09-23] MEDS ORDERED: Ondansetron ODT 4 MG TAB PO PRN (06:14)
[2022-09-23] MEDS ORDERED: Insulin Regular 300 UNITS/3 ML VIAL SC PRN ×2 (06:15)
[2022-09-23] MEDS ORDERED: Dextrose 5% in Water 1,000 ML IV PRN (06:15)
[2022-09-23] MEDS ORDERED: Dextrose 50% Abboject 50 ML SYRINGE SLOW IVP PRN (06:15)
[2022-09-23] MEDS ORDERED: Furosemide 40 MG/4 ML VIAL SLOW IVP SCH ×2 (06:30→14:00)
[2022-09-23] MEDS: Furosemide 40 MG/4 ML VIAL SLOW IVP SCH (06:35)
[2022-09-23] MEDS ORDERED: Aspirin 81 mg Enteric Coated Tablet PO SCH ×3 (09:00)
[2022-09-23] MEDS ORDERED: Melatonin 3 MG TAB PO PRN (10:47)
[2022-09-23] MEDS ORDERED: buPROPion HCl 100 MG TAB PO SCH (11:15)
[2022-09-23] MEDS ORDERED: Carvedilol 6.25 MG TAB PO SCH ×2 (11:15→17:00)
[2022-09-23] MEDS ORDERED: Aripiprazole 10 MG TAB PO SCH (11:15)
[2022-09-23 11:47] LABS: Anion Gap 10 mmol/L (10-20); BUN (Urea Nitrogen) 20 mg/dL (9.8-20.1); Calc. Creatinine Clearance 54 mL/min (70-130); Calcium 9.1 mg/dL (7.8-10.44); Carbon Dioxide 27 mmol/L (23-31); Chloride 102 mmol/L (98-107); Estimated GFR 57; Glucose 159 mg/dL (80-115); Potassium 3.8 mmol/L (3.5-5.1); Sodium 135 mmol/L (136-145)
[2022-09-23 15:39] VITALS: TEMP 98.3
[2022-09-23] MEDS ORDERED: glipiZIDE 5 MG TAB PO SCH (16:30)
[2022-09-23 17:32] VITALS: BP 137/92
[2022-09-23] MEDS ORDERED: Atorvastatin Calcium 40 MG TAB PO SCH (21:00)
[2022-09-23] MEDS ORDERED: hydrOXYzine Pamoate 25 mg Capsule PO SCH (21:00)
[2022-09-23] MEDS ORDERED: Simvastatin 10 MG TAB PO SCH (21:00)
[2022-09-24] MEDS ORDERED: Gabapentin 100 MG CAP PO SCH (09:00)
[2022-09-24] MEDS ORDERED: buPROPion HCl 100 MG TAB PO SCH (09:00)
[2022-09-24] MEDS ORDERED: Aripiprazole 10 MG TAB PO SCH (09:00)
[2022-09-24] MEDS ORDERED: Ezetimibe 10 MG TAB PO SCH (09:00)
[2022-09-24] MEDS ORDERED: FLUoxetine HCl 20 MG CAP PO SCH (09:00)
[2022-09-24] MEDS ORDERED: Benztropine 1 MG TAB PO SCH (09:00)
== END 2022-09-23 17:30 | disposition home or self-care (01) | DRG 280 ==
LOC: SUATTDRO 10:29 → ERS 10:29 → UNDOADMIN 12:22 → 2NO 12:22 → ERS 14:18 → UNDODISIN 17:30 → EDSTATUS 17:59 → 2NO 18:07
PROVIDERS: ADMIT Internal Medicine; ATTEND Internal Medicine
DX: I13.0 Hypertensive heart and chronic kidney disease with heart failure and stage 1 through stage 4 chronic kidney disease, or unspecified chronic kidney disease (principal); I50.23 Acute on chronic systolic (congestive) heart failure; I21.A1 Myocardial infarction type 2; J96.01 Acute respiratory failure with hypoxia; Z20.822 Contact with and (suspected) exposure to COVID-19; E78.5 Hyperlipidemia, unspecified; I25.10 Atherosclerotic heart disease of native coronary artery without angina pectoris; J44.9 Chronic obstructive pulmonary disease, unspecified; N18.30 Chronic kidney disease, stage 3 unspecified; E11.22 Type 2 diabetes mellitus with diabetic chronic kidney disease; F32.A Depression, unspecified; Z91.041 Radiographic dye allergy status; Z79.899 Other long term (current) drug therapy; Z79.82 Long term (current) use of aspirin; Z79.84 Long term (current) use of oral hypoglycemic drugs; Z87.891 Personal history of nicotine dependence
CPT/HCPCS: 36415; 36416; 71045; 74176; 80048; 80053; 81003; 81015; 82553; 83690; 83880; 84484; 85025; 93005; 96374; 96375; J1650; J1885; J1940; J2405; U0003; U0005

== ENCOUNTER 2022-10-22 00:15 | Inpatient (IN) | payer MEDICARE, OTHER ==
[2022-10-22] MEDS ORDERED: Acetaminophen 325 MG TAB PO PRN (03:10)
[2022-10-22] MEDS ORDERED: Senokot S 8.6-50 MG TAB PO PRN (03:10)
[2022-10-22] MEDS ORDERED: Ondansetron ODT 4 MG TAB PO PRN (03:10)
[2022-10-22 03:11] VITALS: BMI 40.2
[2022-10-22] MEDS ORDERED: Melatonin 3 MG TAB PO PRN (03:13)
[2022-10-22 05:45] LABS: #Basophils 0.1 thou/uL (0.0-0.2); #Eosinphils 0.2 thou/uL (0.0-0.7); #Lymphocytes 2.1 thou/uL (1.20-3.40); #Monocytes 0.8 thou/uL (0.11-0.59); #Neutrophils 5.5 thou/uL (1.40-6.50); %Basophils 0.9 % (0.0-1.0); %Eosinophils 2.2 % (0.0-10.0); %Monocytes 9.1 % (0.0-10.0); %Neutrophils 63.8 % (42.0-75.0); Hemoglobin 9.3 g/dL (12.0-16.0); Mean Corpuscular HGB CONC 33.7 g/dL (32.0-36.0); Mean Corpuscular Hemoglobin 29.9 pg (27.0-31.0); Mean Corpuscular Volume 88.7 fl (78.0-98.0); Mean Platelet Volume 7.4 fL (7.4-10.4); Platelet Count 272 10x3/uL (130-400); RBC Distribution Width 13.6 % (11.5-14.5); Red Blood Cell (RBC) Count 3.12 mill/uL (4.20-5.40); White Blood Cell (WBC) Count 8.6 10x3/uL (4.8-10.8)
[2022-10-22] MEDS: Furosemide 20 MG/2 ML VIAL SLOW IVP SCH ×2 (06:01→14:20)
[2022-10-22 06:11] LABS: Anion Gap 13 mmol/L (10-20); BUN (Urea Nitrogen) 38 mg/dL (9.8-20.1); Calc. Creatinine Clearance 65 mL/min (70-130); Carbon Dioxide 24 mmol/L (23-31); Chloride 103 mmol/L (98-107); Estimated GFR 40; Glucose 137 mg/dL (80-115); Potassium 4.2 mmol/L (3.5-5.1); Sodium 136 mmol/L (136-145)
[2022-10-22] MEDS: Aripiprazole 10 MG TAB PO SCH (08:49)
[2022-10-22] MEDS: Sacubitril 24MG/Valsartan 26 MG TAB PO SCH ×2 (08:52→20:53)
[2022-10-22] MEDS: Benztropine 1 MG TAB PO SCH (08:53)
[2022-10-22] MEDS: Ezetimibe 10 MG TAB PO SCH (08:54)
[2022-10-22] MEDS: Carvedilol 6.25 MG TAB PO SCH ×2 (08:54→16:32)
[2022-10-22] MEDS: Famotidine 20 MG TAB PO SCH (08:54)
[2022-10-22] MEDS: Bupropion 150 MG XL TAB PO SCH (08:54)
[2022-10-22] MEDS: Simvastatin 10 MG TAB PO SCH (08:54)
[2022-10-22] MEDS: Gabapentin 100 MG CAP PO SCH (08:55)
[2022-10-22] MEDS: FLUoxetine HCl 20 MG CAP PO SCH (08:55)
[2022-10-22] MEDS ORDERED: Dextrose 5% in Water 1,000 ML IV PRN (17:47)
[2022-10-22] MEDS ORDERED: Dextrose 50% Abboject 50 ML SYRINGE SLOW IVP PRN (17:47)
[2022-10-22] MEDS: Atorvastatin Calcium 40 MG TAB PO SCH (20:53)
[2022-10-23 06:34] LABS: ALT (SGPT) 11 U/L (8-55); AST (SGOT) 13 U/L (5-34); Alkaline Phosphatase 113 U/L (40-110); Anion Gap 10 mmol/L (10-20); BUN (Urea Nitrogen) 33 mg/dL (9.8-20.1); Bilirubin, Total Less than 1.0 mg/dL (0.2-1.2); Calc. Creatinine Clearance 69 mL/min (70-130); Calcium 8.9 mg/dL (7.8-10.44); Carbon Dioxide 25 mmol/L (23-31); Chloride 105 mmol/L (98-107); Estimated GFR 42; Globulin 3.3 g/dL (2.4-3.5); Glucose 140 mg/dL (80-115); Potassium 4.1 mmol/L (3.5-5.1); Protein, Total 6.3 g/dL (5.8-8.1); Sodium 136 mmol/L (136-145)
[2022-10-23] MEDS: Furosemide 20 MG/2 ML VIAL SLOW IVP SCH ×2 (07:47→13:32)
[2022-10-23] MEDS: Sacubitril 24MG/Valsartan 26 MG TAB PO SCH ×2 (08:57→20:51)
[2022-10-23] MEDS: Gabapentin 100 MG CAP PO SCH (08:59)
[2022-10-23] MEDS: Famotidine 20 MG TAB PO SCH (09:00)
[2022-10-23] MEDS: Ezetimibe 10 MG TAB PO SCH (09:00)
[2022-10-23] MEDS: Simvastatin 10 MG TAB PO SCH (09:00)
[2022-10-23] MEDS: Bupropion 150 MG XL TAB PO SCH (09:01)
[2022-10-23] MEDS: FLUoxetine HCl 20 MG CAP PO SCH (09:02)
[2022-10-23] MEDS: Carvedilol 6.25 MG TAB PO SCH ×2 (09:02→16:43)
[2022-10-23] MEDS: Benztropine 1 MG TAB PO SCH (09:03)
[2022-10-23] MEDS: Aripiprazole 10 MG TAB PO SCH (09:03)
[2022-10-23] MEDS ORDERED: Lorazepam 2 MG/ML VIAL SLOW IVP PRN (11:38)
[2022-10-23] MEDS: HumaLOG 300 UNITS/3 ML VIAL SC PRN ×2 (13:32→20:52)
[2022-10-23] MEDS: Atorvastatin Calcium 40 MG TAB PO SCH (20:51)
[2022-10-24] MEDS: Furosemide 20 MG/2 ML VIAL SLOW IVP SCH ×2 (05:54→14:26)
[2022-10-24] MEDS: HumaLOG 300 UNITS/3 ML VIAL SC PRN (06:13)
[2022-10-24 06:15] LABS: ALT (SGPT) 12 U/L (8-55); AST (SGOT) 20 U/L (5-34); Albumin 3.1 g/dL (3.4-4.8); Alkaline Phosphatase 114 U/L (40-110); Anion Gap 15 mmol/L (10-20); BUN (Urea Nitrogen) 29 mg/dL (9.8-20.1); Bilirubin, Total 0.4 mg/dL (0.2-1.2); Calc. Creatinine Clearance 71 mL/min (70-130); Calcium 9.3 mg/dL (7.8-10.44); Carbon Dioxide 21 mmol/L (23-31); Chloride 104 mmol/L (98-107); Estimated GFR 46; Globulin 3.7 g/dL (2.4-3.5); Glucose 171 mg/dL (80-115); Potassium 4.5 mmol/L (3.5-5.1); Protein, Total 6.8 g/dL (5.8-8.1); Sodium 135 mmol/L (136-145)
[2022-10-24] MEDS: FLUoxetine HCl 20 MG CAP PO SCH (08:41)
[2022-10-24] MEDS: Sacubitril 24MG/Valsartan 26 MG TAB PO SCH (08:42)
[2022-10-24] MEDS: Bupropion 150 MG XL TAB PO SCH (08:42)
[2022-10-24] MEDS: Famotidine 20 MG TAB PO SCH (08:42)
[2022-10-24] MEDS: Carvedilol 6.25 MG TAB PO SCH (08:42)
[2022-10-24] MEDS: Ezetimibe 10 MG TAB PO SCH (08:43)
[2022-10-24] MEDS: Benztropine 1 MG TAB PO SCH (08:43)
[2022-10-24] MEDS: Simvastatin 10 MG TAB PO SCH (08:43)
[2022-10-24] MEDS: Aripiprazole 10 MG TAB PO SCH (08:43)
[2022-10-24] MEDS: Gabapentin 100 MG CAP PO SCH (08:44)
[2022-10-24 12:07] VITALS: BP 103/57; TEMP 97.2
== END 2022-10-24 14:30 | disposition home or self-care (01) | DRG 291 ==
LOC: NEURO 02:48 → OBSVTOIN 14:08
PROVIDERS: ADMIT Student in an Organized Health Care Education/Training Program; ATTEND Internal Medicine
DX: I13.0 Hypertensive heart and chronic kidney disease with heart failure and stage 1 through stage 4 chronic kidney disease, or unspecified chronic kidney disease (principal); I50.23 Acute on chronic systolic (congestive) heart failure; F32.A Depression, unspecified; E78.5 Hyperlipidemia, unspecified; N18.9 Chronic kidney disease, unspecified; E11.22 Type 2 diabetes mellitus with diabetic chronic kidney disease; D63.1 Anemia in chronic kidney disease; J44.9 Chronic obstructive pulmonary disease, unspecified; R53.1 Weakness; I25.10 Atherosclerotic heart disease of native coronary artery without angina pectoris; E66.01 Morbid (severe) obesity due to excess calories; I48.0 Paroxysmal atrial fibrillation; R25.1 Tremor, unspecified; Z79.899 Other long term (current) drug therapy; Z79.82 Long term (current) use of aspirin; Z87.891 Personal history of nicotine dependence; Z95.1 Presence of aortocoronary bypass graft; Z79.84 Long term (current) use of oral hypoglycemic drugs; Z91.041 Radiographic dye allergy status; Z68.39 Body mass index [BMI] 39.0-39.9, adult
CPT/HCPCS: 36415; 36416; 70450; 70551; 80048; 80053; 85025; 95816; 95819; 95957; 96372; 96374; G0378; J1650; J1815; J1940

== ENCOUNTER 2022-12-31 21:07 | Inpatient (IN) | payer MEDICARE, OTHER ==
[2022-12-31 21:45] LABS: #Basophils 0.1 thou/uL (0.0-0.2); #Eosinphils 0.2 thou/uL (0.0-0.7); #Monocytes 0.9 thou/uL (0.11-0.59); #Neutrophils 5.4 thou/uL (1.40-6.50); %Basophils 0.7 % (0.0-1.0); %Eosinophils 2.3 % (0.0-10.0); %Lymphocytes 18.8 % (21.0-51.0); %Monocytes 10.9 % (0.0-10.0); %Neutrophils 66.2 % (42.0-75.0); Hemoglobin 7.4 g/dL (12.0-16.0); Mean Corpuscular HGB CONC 32.5 g/dL (32.0-36.0); Mean Corpuscular Volume 83.2 fl (78.0-98.0); Mean Platelet Volume 9.2 fL (7.4-10.4); Platelet Count 293 10x3/uL (130-400); RBC Distribution Width 15.7 % (11.5-14.5); Red Blood Cell (RBC) Count 2.74 mill/uL (4.20-5.40); White Blood Cell (WBC) Count 8.1 10x3/uL (4.8-10.8)
[2022-12-31 22:08] LABS: ALT (SGPT) Less than 7 U/L (8-55); AST (SGOT) 17 U/L (5-34); Albumin 3.2 g/dL (3.4-4.8); Alkaline Phosphatase 115 U/L (40-110); Anion Gap 11 mmol/L (10-20); BUN (Urea Nitrogen) 60 mg/dL (9.8-20.1); Bilirubin, Total 0.3 mg/dL (0.2-1.2); Calc. Creatinine Clearance 0 mL/min (70-130); Carbon Dioxide 24 mmol/L (23-31); Chloride 103 mmol/L (98-107); Estimated GFR 24; Globulin 3.3 g/dL (2.4-3.5); Glucose 98 mg/dL (80-115); Potassium 4.6 mmol/L (3.5-5.1); Protein, Total 6.5 g/dL (5.8-8.1); Sodium 133 mmol/L (136-145)
[2022-12-31 23:58] LABS: Bilirubin Negative (Negative); Blood, Urine Negative (Negative); CAUTI Indications for Culture Dysuria,urgency,freq; Clarity Clear (Clear); Glucose, Urine (Dipstick) Normal (Negative); Ketone, Urine Negative (Negative); Leukocyte Negative Leu/uL (Negative); Mucous/LPF Rare LPF (<2+); Nitrite Negative (Negative); Protein, Urine (Dipstick) 50 mg/dL (Neg-Trace); RBC/HPF 0-3 HPF (0-3); Renal Epithelial 0-3 HPF (None Seen); Specific Gravity, Urine 1.018 (1.002-1.036); Squamous Epithelial 0-3 HPF (0-3); Urobilinogen Normal mg/dL (Less than 2); WBC/HPF 0-3 HPF (0-3)
[2023-01-01] LABS: Bacteria/HPF 1+ HPF (None Seen)
[2023-01-01 00:01] LABS: Urine Culture Reflex No No
[2023-01-01] MEDS ORDERED: Furosemide 40 MG/4 ML VIAL ONE (00:48)
[2023-01-01] MEDS ORDERED: Aspirin Chewable 81 MG TAB ONE (00:48)
[2023-01-01] MEDS ORDERED: Ondansetron PF 4 MG/2 ML Vial ONE (01:11)
[2023-01-01] MEDS ORDERED: Metoclopramide HCl 10 MG/2 ML VIAL IVP PRN (01:21)
[2023-01-01] MEDS ORDERED: Morphine 2 MG/ML VIAL SLOW IVP PRN (01:21)
[2023-01-01] MEDS ORDERED: Senokot S 8.6-50 MG TAB PO SCH (01:30)
[2023-01-01] MEDS ORDERED: Dextrose 5% in Water 1,000 ML IV PRN (01:37)
[2023-01-01] MEDS ORDERED: Dextrose 50% Abboject 50 ML SYRINGE SLOW IVP PRN (01:37)
[2023-01-01] MEDS ORDERED: Glucagon 1 MG/ML KIT IM PRN (01:37)
[2023-01-01] MEDS ORDERED: Empagliflozin 10 MG TAB PO SCH (02:00)
[2023-01-01 03:21] VITALS: BMI 39.2
[2023-01-01 04:50] LABS: #Basophils 0.1 thou/uL (0.0-0.2); #Eosinphils 0.1 thou/uL (0.0-0.7); #Monocytes 0.8 thou/uL (0.11-0.59); #Neutrophils 5.8 thou/uL (1.40-6.50); %Basophils 0.7 % (0.0-1.0); %Eosinophils 1.6 % (0.0-10.0); %Lymphocytes 16.5 % (21.0-51.0); %Neutrophils 70.8 % (42.0-75.0); Hemoglobin 7.5 g/dL (12.0-16.0); Mean Corpuscular HGB CONC 32.6 g/dL (32.0-36.0); Mean Corpuscular Hemoglobin 27.4 pg (27.0-31.0); Mean Corpuscular Volume 83.9 fl (78.0-98.0); Mean Platelet Volume 9.4 fL (7.4-10.4); Platelet Count 309 10x3/uL (130-400); RBC Distribution Width 15.7 % (11.5-14.5); Red Blood Cell (RBC) Count 2.74 mill/uL (4.20-5.40); White Blood Cell (WBC) Count 8.2 10x3/uL (4.8-10.8)
[2023-01-01 04:56] LABS: Hemoglobin A1c 6.1 % (4.0-6.0)
[2023-01-01 05:12] LABS: Phosphorus 3.5 mg/dL (2.3-4.7)
[2023-01-01 05:15] LABS: ALT (SGPT) 7 U/L (8-55); AST (SGOT) 20 U/L (5-34); Albumin 3.2 g/dL (3.4-4.8); Alkaline Phosphatase 114 U/L (40-110); Anion Gap 13 mmol/L (10-20); BUN (Urea Nitrogen) 61 mg/dL (9.8-20.1); Bilirubin, Total 0.3 mg/dL (0.2-1.2); Calc. Creatinine Clearance 41 mL/min (70-130); Carbon Dioxide 24 mmol/L (23-31); Chloride 104 mmol/L (98-107); Estimated GFR 24; Globulin 3.5 g/dL (2.4-3.5); Glucose 108 mg/dL (80-115); Iron 29 ug/dL (50-170); Iron Binding Capacity, Total 320 mcg/dL (265-497); Magnesium 2.4 mg/dL (1.6-2.6); Potassium 4.8 mmol/L (3.5-5.1); Protein, Total 6.7 g/dL (5.8-8.1); Sodium 136 mmol/L (136-145)
[2023-01-01] MEDS: Furosemide 40 MG/4 ML VIAL SLOW IVP SCH ×2 (05:27→15:15)
[2023-01-01 05:32] LABS: Ferritin 41.79 ng/mL (10-291); Thyroid Stimulating Hormone 3.2763 uIU/mL (0.35-4.94)
[2023-01-01] MEDS: Ezetimibe 10 MG TAB PO SCH (09:47)
[2023-01-01] MEDS: Sacubitril 24MG/Valsartan 26 MG TAB PO SCH ×2 (09:47→20:31)
[2023-01-01] MEDS: Senokot S 8.6-50 MG TAB PO SCH ×2 (09:48→20:31)
[2023-01-01] MEDS: Heparin 5,000 UNITS/ML VIAL SC SCH ×3 (09:48→20:32)
[2023-01-01] MEDS: Benztropine 1 MG TAB PO SCH (09:48)
[2023-01-01] MEDS: Carbidopa/Levodopa 25-100 mg Tablet PO SCH ×3 (09:48→20:31)
[2023-01-01] MEDS: FLUoxetine HCl 20 MG CAP PO SCH (09:48)
[2023-01-01] MEDS: Carvedilol 3.125 MG TAB PO SCH ×2 (09:49→16:51)
[2023-01-02 04:53] LABS: #Basophils 0.1 thou/uL (0.0-0.2); #Eosinphils 0.2 thou/uL (0.0-0.7); #Monocytes 0.8 thou/uL (0.11-0.59); #Neutrophils 4.4 thou/uL (1.40-6.50); %Eosinophils 2.4 % (0.0-10.0); %Lymphocytes 24.1 % (21.0-51.0); %Monocytes 11.5 % (0.0-10.0); %Neutrophils 60.7 % (42.0-75.0); Hemoglobin 7.2 g/dL (12.0-16.0); Mean Corpuscular HGB CONC 30.9 g/dL (32.0-36.0); Mean Corpuscular Hemoglobin 26.2 pg (27.0-31.0); Mean Corpuscular Volume 84.7 fl (78.0-98.0); Mean Platelet Volume 9.8 fL (7.4-10.4); Platelet Count 322 10x3/uL (130-400); RBC Distribution Width 15.8 % (11.5-14.5); Red Blood Cell (RBC) Count 2.75 mill/uL (4.20-5.40); White Blood Cell (WBC) Count 7.2 10x3/uL (4.8-10.8)
[2023-01-02 05:17] LABS: Anion Gap 13 mmol/L (10-20); BUN (Urea Nitrogen) 48 mg/dL (9.8-20.1); Calc. Creatinine Clearance 54 mL/min (70-130); Calcium 9.1 mg/dL (7.8-10.44); Carbon Dioxide 23 mmol/L (23-31); Chloride 103 mmol/L (98-107); Estimated GFR 34; Glucose 89 mg/dL (80-115); Sodium 135 mmol/L (136-145)
[2023-01-02] MEDS: Furosemide 40 MG/4 ML VIAL SLOW IVP SCH ×2 (06:40→15:22)
[2023-01-02] MEDS: Carvedilol 3.125 MG TAB PO SCH ×2 (10:00→17:57)
[2023-01-02] MEDS: Carbidopa/Levodopa 25-100 mg Tablet PO SCH ×3 (10:01→20:39)
[2023-01-02] MEDS: Benztropine 1 MG TAB PO SCH (10:01)
[2023-01-02] MEDS: FLUoxetine HCl 20 MG CAP PO SCH (10:02)
[2023-01-02] MEDS: Empagliflozin 10 MG TAB PO SCH (10:02)
[2023-01-02] MEDS: Ezetimibe 10 MG TAB PO SCH (10:02)
[2023-01-02] MEDS: Senokot S 8.6-50 MG TAB PO SCH ×2 (10:03→20:39)
[2023-01-02] MEDS: Sacubitril 24MG/Valsartan 26 MG TAB PO SCH ×2 (10:03→20:39)
[2023-01-02] MEDS: Heparin 5,000 UNITS/ML VIAL SC SCH ×3 (10:04→20:39)
[2023-01-02 17:25] LABS: #Basophils 0.1 thou/uL (0.0-0.2); #Eosinphils 0.1 thou/uL (0.0-0.7); #Monocytes 0.9 thou/uL (0.11-0.59); #Neutrophils 5.3 thou/uL (1.40-6.50); %Basophils 0.8 % (0.0-1.0); %Eosinophils 1.8 % (0.0-10.0); %Monocytes 11.9 % (0.0-10.0); %Neutrophils 67.2 % (42.0-75.0); Hemoglobin 7.5 g/dL (12.0-16.0); Mean Corpuscular HGB CONC 32.2 g/dL (32.0-36.0); Mean Corpuscular Hemoglobin 27.1 pg (27.0-31.0); Mean Corpuscular Volume 84.1 fl (78.0-98.0); Mean Platelet Volume 8.7 fL (7.4-10.4); Platelet Count 305 10x3/uL (130-400); RBC Distribution Width 15.7 % (11.5-14.5); Red Blood Cell (RBC) Count 2.77 mill/uL (4.20-5.40); White Blood Cell (WBC) Count 7.9 10x3/uL (4.8-10.8)
[2023-01-03] MEDS: Melatonin 3 MG TAB PO PRN ×2 (04:17→20:50)
[2023-01-03 04:28] LABS: #Basophils 0.1 thou/uL (0.0-0.2); #Eosinphils 0.2 thou/uL (0.0-0.7); #Neutrophils 4.9 thou/uL (1.40-6.50); %Basophils 0.7 % (0.0-1.0); %Lymphocytes 20.4 % (21.0-51.0); %Monocytes 12.4 % (0.0-10.0); %Neutrophils 63.1 % (42.0-75.0); Hemoglobin 7.9 g/dL (12.0-16.0); Mean Corpuscular HGB CONC 32.1 g/dL (32.0-36.0); Mean Corpuscular HGB CONC 32.6 g/dL (32.0-36.0); Mean Corpuscular Hemoglobin 26.9 pg (27.0-31.0); Mean Corpuscular Hemoglobin 27.3 pg (27.0-31.0); Mean Corpuscular Volume 83.7 fl (78.0-98.0); Mean Corpuscular Volume 83.8 fl (78.0-98.0); Mean Platelet Volume 9.3 fL (7.4-10.4); Platelet Count 356 10x3/uL (130-400); Platelet Count 361 10x3/uL (130-400); RBC Distribution Width 15.6 % (11.5-14.5); Red Blood Cell (RBC) Count 2.89 mill/uL (4.20-5.40); Red Blood Cell (RBC) Count 2.97 mill/uL (4.20-5.40); White Blood Cell (WBC) Count 7.7 10x3/uL (4.8-10.8); White Blood Cell (WBC) Count 7.8 10x3/uL (4.8-10.8)
[2023-01-03] MEDS: Furosemide 40 MG/4 ML VIAL SLOW IVP SCH ×2 (04:54→15:03)
[2023-01-03 04:56] LABS: Anion Gap 12 mmol/L (10-20); BUN (Urea Nitrogen) 36 mg/dL (9.8-20.1); Calc. Creatinine Clearance 64 mL/min (70-130); Calcium 9.3 mg/dL (7.8-10.44); Carbon Dioxide 25 mmol/L (23-31); Chloride 102 mmol/L (98-107); Estimated GFR 42; Glucose 100 mg/dL (80-115); Iron Binding Capacity, Total 315 mcg/dL (265-497); Potassium 4.1 mmol/L (3.5-5.1); Sodium 135 mmol/L (136-145)
[2023-01-03 05:11] LABS: ALT (SGPT) Less than 7 U/L (8-55); AST (SGOT) 20 U/L (5-34); Albumin 3.2 g/dL (3.4-4.8); Alkaline Phosphatase 118 U/L (40-110); Anion Gap 13 mmol/L (10-20); BUN (Urea Nitrogen) 37 mg/dL (9.8-20.1); Bilirubin, Total 0.5 mg/dL (0.2-1.2); Calc. Creatinine Clearance 64 mL/min (70-130); Calcium 9.2 mg/dL (7.8-10.44); Carbon Dioxide 24 mmol/L (23-31); Chloride 102 mmol/L (98-107); Estimated GFR 42; Globulin 3.6 g/dL (2.4-3.5); Glucose 99 mg/dL (80-115); Iron 24 ug/dL (50-170); Iron Binding Capacity, Total 314 mcg/dL (265-497); Potassium 4.1 mmol/L (3.5-5.1); Protein, Total 6.8 g/dL (5.8-8.1); Sodium 135 mmol/L (136-145)
[2023-01-03] MEDS: Ezetimibe 10 MG TAB PO SCH (11:03)
[2023-01-03] MEDS: Benztropine 1 MG TAB PO SCH (11:03)
[2023-01-03] MEDS: Sacubitril 24MG/Valsartan 26 MG TAB PO SCH ×2 (11:03→20:43)
[2023-01-03] MEDS: Senokot S 8.6-50 MG TAB PO SCH ×2 (11:03→20:43)
[2023-01-03] MEDS: FLUoxetine HCl 20 MG CAP PO SCH (11:03)
[2023-01-03] MEDS: Empagliflozin 10 MG TAB PO SCH (11:04)
[2023-01-03] MEDS: Carvedilol 3.125 MG TAB PO SCH ×2 (11:04→18:19)
[2023-01-03] MEDS: Heparin 5,000 UNITS/ML VIAL SC SCH ×3 (11:05→20:47)
[2023-01-03] MEDS: Carbidopa/Levodopa 25-100 mg Tablet PO SCH ×3 (11:05→20:43)
[2023-01-04 04:57] LABS: #Eosinphils 0.2 thou/uL (0.0-0.7); #Neutrophils 5.3 thou/uL (1.40-6.50); %Basophils 0.5 % (0.0-1.0); %Eosinophils 2.7 % (0.0-10.0); %Lymphocytes 20.1 % (21.0-51.0); %Monocytes 12.7 % (0.0-10.0); %Neutrophils 63.8 % (42.0-75.0); Hemoglobin 7.7 g/dL (12.0-16.0); Mean Corpuscular HGB CONC 31.8 g/dL (32.0-36.0); Mean Corpuscular Volume 84.9 fl (78.0-98.0); Mean Platelet Volume 9.4 fL (7.4-10.4); Platelet Count 364 10x3/uL (130-400); RBC Distribution Width 15.6 % (11.5-14.5); Red Blood Cell (RBC) Count 2.85 mill/uL (4.20-5.40); White Blood Cell (WBC) Count 8.2 10x3/uL (4.8-10.8)
[2023-01-04 05:22] LABS: Anion Gap 13 mmol/L (10-20); BUN (Urea Nitrogen) 28 mg/dL (9.8-20.1); Calc. Creatinine Clearance 67 mL/min (70-130); Calcium 8.9 mg/dL (7.8-10.44); Carbon Dioxide 23 mmol/L (23-31); Chloride 102 mmol/L (98-107); Estimated GFR 47; Glucose 109 mg/dL (80-115); Potassium 3.9 mmol/L (3.5-5.1); Sodium 134 mmol/L (136-145)
[2023-01-04] MEDS ORDERED: Furosemide 40 MG TAB PO SCH (07:30)
[2023-01-04] MEDS: FLUoxetine HCl 20 MG CAP PO SCH (09:39)
[2023-01-04] MEDS: Empagliflozin 10 MG TAB PO SCH (09:40)
[2023-01-04] MEDS: Benztropine 1 MG TAB PO SCH (09:40)
[2023-01-04] MEDS: Sacubitril 24MG/Valsartan 26 MG TAB PO SCH (09:40)
[2023-01-04] MEDS: Carbidopa/Levodopa 25-100 mg Tablet PO SCH ×2 (09:41→15:35)
[2023-01-04] MEDS: Carvedilol 3.125 MG TAB PO SCH ×2 (09:41→17:12)
[2023-01-04] MEDS: Ezetimibe 10 MG TAB PO SCH (09:41)
[2023-01-04] MEDS: Senokot S 8.6-50 MG TAB PO SCH (09:41)
[2023-01-04] MEDS: Heparin 5,000 UNITS/ML VIAL SC SCH ×2 (09:41→15:35)
[2023-01-04] MEDS ORDERED: Polyethylene Glycol 3350 17 GM Packet PO SCH (10:15)
[2023-01-04] MEDS ORDERED: HYDROmorphone 2 MG/ML VIAL ONE (15:24)
[2023-01-04 16:59] VITALS: BP 150/66; TEMP 97.2
[2023-01-04] MEDS ORDERED: Estrogens, Conjugated 30 GM TUBE VAG SCH (21:00)
[2023-01-04] MEDS ORDERED: Estradiol 0.01% Vaginal Cream 42.5 gm Tube VAG SCH (21:00)
[2023-01-05] MEDS ORDERED: Polyethylene Glycol 3350 17 GM Packet PO SCH (09:00)
== END 2023-01-04 20:20 | disposition home or self-care (01) | DRG 291 ==
LOC: ERS 21:07 → 2NO 01-01 01:04 → OBSVTOIN 01-03 14:24
PROVIDERS: ADMIT Internal Medicine; ATTEND Family Medicine
PROC: 0T9B70Z Drainage of Bladder with Drainage Device, Via Natural or Artificial Opening (ICD-10-PCS; principal; 2023-01-03)
DX: I13.0 Hypertensive heart and chronic kidney disease with heart failure and stage 1 through stage 4 chronic kidney disease, or unspecified chronic kidney disease (principal); I50.41 Acute combined systolic (congestive) and diastolic (congestive) heart failure; J96.21 Acute and chronic respiratory failure with hypoxia; N17.9 Acute kidney failure, unspecified; J44.9 Chronic obstructive pulmonary disease, unspecified; I25.10 Atherosclerotic heart disease of native coronary artery without angina pectoris; M54.9 Dorsalgia, unspecified; Z66 Do not resuscitate; G20 Parkinson's disease; E11.22 Type 2 diabetes mellitus with diabetic chronic kidney disease; R33.9 Retention of urine, unspecified; N18.30 Chronic kidney disease, stage 3 unspecified; K59.00 Constipation, unspecified; E78.5 Hyperlipidemia, unspecified; D63.1 Anemia in chronic kidney disease; Z95.1 Presence of aortocoronary bypass graft; Z88.8 Allergy status to other drugs, medicaments and biological substances; Z79.82 Long term (current) use of aspirin; Z79.899 Other long term (current) drug therapy; Z95.5 Presence of coronary angioplasty implant and graft; Z90.710 Acquired absence of both cervix and uterus; Z98.890 Other specified postprocedural states
CPT/HCPCS: 36415; 36416; 51701; 70450; 70551; 71045; 72131; 76770; 80048; 80053; 81001; 82553; 82728; 83036; 83540; 83550; 83735; 83880; 84100; 84443; 84484; 85025; 85046; 93005; 93306; 94640; 96372; 96374; 96375; 96376; G0378; J1170; J1644; J1940; J2405; J7611